=== PATIENT | male | born 1990 | race Two or more races ===

== ENCOUNTER 2018-10-25 09:37 | Inpatient (IN) | payer SELFPAY, OTHER | END 2018-10-27 16:59 | disposition home or self-care (01) | LOC: ER 09:37 → OVERFLOW 14:02 → CENTRAL 18:15 ==

== ENCOUNTER 2022-09-16 15:35 | Emergency (ER) | payer MEDICAID ==
[~2022-09-16] VITALS: Ht 165.1 cm; Wt 80.6 kg
[~2022-09-16 15:35] MED LIST: CIPR-173 PO; METR500T PO; ONDA-144 PO; PERCOT PO
[2022-09-16 16:57] LABS: Basophils # (auto) 0.1 10 ^3/uL (0-0.2); Basophils % (auto) 0.5 % (0.0-2.0); Eosinophils # (auto) 0 10 ^3/uL (0-0.8); Eosinophils % (auto) 0.2 % (0.0-7.0); Hematocrit 44.5 % (41.0-53.0); Hemoglobin 15.3 g/dL (13.5-17.5); Lymphocytes # (auto) 2.3 10 ^3/uL (0.4-5.4); Lymphocytes % (auto) 15.3 % (10.0-50.0); Mean Corpuscular Hemoglobin 28.1 pg (28.0-32.0); Mean Corpuscular Hgb Conc. 34.3 g/dL (32.0-36.0); Mean Corpuscular Volume 82.1 fL (80.0-100.0); Monocytes # (auto) 1.2 10 ^3/uL (0-1.3); Neutrophils # (auto) 11.5 10 ^3/uL (1.6-8.6); Nucleated Red Blood Cells % 0.1 %; Red Blood Cells 5.42 10^6/uL (4.5-5.90); Red Cell Distribution Width 13.8 % (11.8-14.3); White Blood Cell 15.1 10^3/uL (4.4-10.8)
[2022-09-16 17:17] LABS: Calcium 8.8 mg/dL (8.5-10.1); Potassium 3.5 mmol/L (3.5-5.1)
[2022-09-16 17:21] LABS: BUN/Creatinine Ratio 14.3; Bilirubin, Total 0.7 mg/dL (0.2-1.0); Total Protein 7.9 g/dL (6.4-8.2)
[2022-09-16] MEDS ORDERED: METR500T14 PO (18:59)
[2022-09-16] MEDS ORDERED: CIPR-173 PO (18:59)
[2022-09-16] MEDS ORDERED: HYDROcodone-ACET 5/325MG TAB PO ONE (19:00)
[2022-09-16] MEDS ORDERED: CIPROFLOXACIN HCL 500 MG TAB PO ONE (19:00)
[2022-09-16] MEDS ORDERED: metroNIDAZOLE 500 MG TAB PO ONE (19:00)
[2022-09-16 20:00] VITALS: BP 135/86
== END 2022-09-16 20:02 | disposition home or self-care (01) ==
LOC: ER 15:35
DX: K57.32 Diverticulitis of large intestine without perforation or abscess without bleeding (principal); Z79.2 Long term (current) use of antibiotics; Z79.899 Other long term (current) drug therapy
CPT/HCPCS: 36415; 74177; 80053; 85025; 99285; Q9967

== ENCOUNTER 2023-04-16 11:46 | Inpatient (IN) | payer MEDICAID ==
[~2023-04-16] VITALS: Ht 165.1 cm; Wt 77.7 kg
[~2023-04-16 11:46] MED LIST changes: +METR-344 PO
[2023-04-16] MEDS ORDERED: ACETAMINOPHEN 325 MG TAB PO ONE (12:00)
[2023-04-16 12:19] VITALS: PULSE 115; RESP 16; O2SAT 96
[2023-04-16 12:40] LABS: Alanine Aminotransferase 193 U/L (7-40); Albumin 5.1 g/dL (3.2-4.8); Alkaline Phosphatase 109 U/L (46-116); Anion Gap 8 (5-15); Aspartate Aminotransferase 146 U/L (13-40); BUN/Creatinine Ratio 10.7 (10.0-20.0); Blood Urea Nitrogen 9 mg/dL (9-23); Calcium 9.5 mg/dL (8.7-10.4); Carbon Dioxide 28 mmol/L (20-30); Chloride 102 mmol/L (98-107); Glucose 118 mg/dL (74-106); Potassium 3.6 mmol/L (3.5-5.1); Sodium 138 mmol/L (136-145)
[2023-04-16 12:45] LABS: Basophils # (auto) 0 10 ^3/uL (0-0.2); Basophils % (auto) 0.1 % (0.0-2.0); Eosinophils # (auto) 0 10 ^3/uL (0-0.8); Eosinophils % (auto) 0.2 % (0.0-7.0); Hematocrit 47.1 % (41.0-53.0); Hemoglobin 15.5 g/dL (13.5-17.5); Lymphocytes # (auto) 0.4 10 ^3/uL (0.4-5.4); Lymphocytes % (auto) 3.3 % (10.0-50.0); Mean Corpuscular Hemoglobin 27.7 pg (28.0-32.0); Mean Corpuscular Hgb Conc. 32.9 g/dL (32.0-36.0); Mean Corpuscular Volume 84.3 fL (80.0-100.0); Monocytes # (auto) 0.2 10 ^3/uL (0-1.3); Monocytes % (auto) 1.5 % (0.0-12.0); Neutrophils # (auto) 12.1 10 ^3/uL (1.6-8.6); Neutrophils % (auto) 94.9 % (37.0-80.0); Nucleated Red Blood Cells % 0.1 %; Red Blood Cells 5.58 10^6/uL (4.5-5.90); Red Cell Distribution Width 13.7 % (11.8-14.3); White Blood Cell 12.8 10^3/uL (4.4-10.8)
[2023-04-16] MEDS ORDERED: metroNIDAZOLE 500MG/100ML 100 ML IV ONE (13:15)
[2023-04-16] MEDS ORDERED: levoFLOXacin 500MG 100 ML IV ONE (13:15)
[2023-04-16] MEDS ORDERED: ACETAMINOPHEN 500 MG TAB PO ONE (13:15)
[2023-04-16] MEDS ORDERED: KETOROLAC TROMETH 30 MG/ML 1ML VIAL IV ONE (13:15)
[2023-04-16 13:21] LABS: Urine Bacteria NONE SEEN /hpf (None Seen); Urine Blood Negative /uL (Negative); Urine Clarity Clear (Clear); Urine Color Yellow (Yellow); Urine Mucus FEW (None Seen); Urine Protein, UAD Negative (Negative); Urine Specific Gravity 1.026 (1.001-1.035); Urine Urobilinogen Normal (Negative); Urine WBC 1 /hpf (0 - 3); Urine pH 5.5 (5.0-8.0)
[2023-04-16] MEDS ORDERED: SODIUM CHLORIDE 0.9% 1,000 ML IV ONE (13:30)
[2023-04-16 14:28] LABS: Lipase 28 U/L (12-53)
[2023-04-16 14:29] LABS: Blood Alcohol < 3.0 mg/dL (<10)
[2023-04-16] MEDS ORDERED: MORPHINE SULFATE INJ 2 MG/ml SYRG IV PRN (15:30)
[2023-04-16] MEDS ORDERED: DOCUSATE SOD 100 MG CAP PO PRN (15:30)
[2023-04-16] MEDS ORDERED: ONDANSETRON HCL 4 MG/2 ML VIAL IV PRN (15:30)
[2023-04-16] MEDS: SODIUM CHLORIDE 0.9% 1,000 ML IV SCH (16:14)
[2023-04-16 17:37] VITALS: BP 101/57; PULSE 91; RESP 20; TEMP 98.2; O2SAT 96
[2023-04-16] MEDS: PIPERACILLIN-TAZOB 3.375GM 100 ML IV SCH (18:05)
[2023-04-16 19:30] VITALS: PULSE 89; RESP 19; O2SAT 96
[2023-04-16] MEDS: ACETAMINOPHEN 325 MG TAB PO PRN (21:25)
[2023-04-16 22:00] VITALS: BP 130/71; PULSE 111; RESP 19; TEMP 102.4; O2SAT 99
[2023-04-16 22:13] VITALS: TEMP 100.9
[2023-04-17] MEDS: PIPERACILLIN-TAZOB 3.375GM 100 ML IV SCH ×2 (00:03→05:53)
[2023-04-17] MEDS: SODIUM CHLORIDE 0.9% 1,000 ML IV SCH ×2 (00:03→08:10)
[2023-04-17 05:00] VITALS: BP 132/83; PULSE 101; RESP 18; TEMP 99.5; O2SAT 92
[2023-04-17 06:18] LABS: Basophils # (auto) 0 10 ^3/uL (0-0.2); Basophils % (auto) 0.4 % (0.0-2.0); Eosinophils # (auto) 0 10 ^3/uL (0-0.8); Hemoglobin 14.1 g/dL (13.5-17.5); Lymphocytes # (auto) 0.5 10 ^3/uL (0.4-5.4); Lymphocytes % (auto) 4.4 % (10.0-50.0); Mean Corpuscular Hemoglobin 27.9 pg (28.0-32.0); Mean Corpuscular Hgb Conc. 33.7 g/dL (32.0-36.0); Mean Corpuscular Volume 82.7 fL (80.0-100.0); Monocytes # (auto) 0.6 10 ^3/uL (0-1.3); Monocytes % (auto) 5.6 % (0.0-12.0); Neutrophils # (auto) 9.2 10 ^3/uL (1.6-8.6); Neutrophils % (auto) 89.6 % (37.0-80.0); Red Blood Cells 5.07 10^6/uL (4.5-5.90); Red Cell Distribution Width 13.2 % (11.8-14.3); White Blood Cell 10.3 10^3/uL (4.4-10.8)
[2023-04-17 06:44] LABS: Alanine Aminotransferase 132 U/L (7-40); Albumin 4.3 g/dL (3.2-4.8); Alkaline Phosphatase 74 U/L (46-116); Anion Gap 9 (5-15); Aspartate Aminotransferase 78 U/L (13-40); BUN/Creatinine Ratio 8.2 (10.0-20.0); Blood Urea Nitrogen 6 mg/dL (9-23); Calcium 8.9 mg/dL (8.7-10.4); Carbon Dioxide 23 mmol/L (20-30); Chloride 106 mmol/L (98-107); Glucose 115 mg/dL (74-106); Potassium 3.3 mmol/L (3.5-5.1); Sodium 138 mmol/L (136-145)
[2023-04-17 06:45] LABS: Total Protein 6.6 g/dL (5.7-8.2)
[2023-04-17 08:00] VITALS: PULSE 80; RESP 18; O2SAT 96
[2023-04-17 08:54] VITALS: BP 117/68; PULSE 98; RESP 20; TEMP 99.5; O2SAT 92
[2023-04-17] MEDS: D5W/SOD CHL 0.45%/KCL 20MEQ 1,000 ML IV SCH ×3 (10:40→20:06)
[2023-04-17 13:00] VITALS: BP 125/80; PULSE 99; RESP 22; TEMP 99.7; O2SAT 100
[2023-04-17] MEDS: metroNIDAZOLE 500MG/100ML 100 ML IV SCH ×2 (13:00→21:05)
[2023-04-17] MEDS: ACETAMINOPHEN 325 MG TAB PO PRN (16:46)
[2023-04-17 17:00] VITALS: BP 127/74; PULSE 100; RESP 22; TEMP 100.7; O2SAT 100
[2023-04-17 22:00] VITALS: BP 113/73; PULSE 96; RESP 18; TEMP 99.1; O2SAT 97
[2023-04-17] MEDS: HYDROmorphone HCL 2 MG/ML VL/or syr IV PRN (22:57)
[2023-04-18 05:00] VITALS: BP 122/65; PULSE 96; RESP 17; TEMP 100.8; O2SAT 97
[2023-04-18 05:09] LABS: Basophils # (auto) 0 10 ^3/uL (0-0.2); Basophils % (auto) 0.3 % (0.0-2.0); Eosinophils # (auto) 0 10 ^3/uL (0-0.8); Eosinophils % (auto) 0.2 % (0.0-7.0); Hematocrit 42.4 % (41.0-53.0); Hemoglobin 14.2 g/dL (13.5-17.5); Lymphocytes % (auto) 12.1 % (10.0-50.0); Mean Corpuscular Hemoglobin 27.9 pg (28.0-32.0); Mean Corpuscular Hgb Conc. 33.5 g/dL (32.0-36.0); Mean Corpuscular Volume 83.1 fL (80.0-100.0); Monocytes # (auto) 0.8 10 ^3/uL (0-1.3); Monocytes % (auto) 9.2 % (0.0-12.0); Neutrophils # (auto) 6.7 10 ^3/uL (1.6-8.6); Neutrophils % (auto) 78.2 % (37.0-80.0); Red Blood Cells 5.11 10^6/uL (4.5-5.90); Red Cell Distribution Width 13.3 % (11.8-14.3); White Blood Cell 8.5 10^3/uL (4.4-10.8)
[2023-04-18 05:26] LABS: Anion Gap 6 (5-15); Carbon Dioxide 24 mmol/L (20-30); Chloride 104 mmol/L (98-107); Potassium 3.4 mmol/L (3.5-5.1); Sodium 134 mmol/L (136-145)
[2023-04-18 05:28] LABS: Calcium 8.9 mg/dL (8.7-10.4)
[2023-04-18] MEDS: ACETAMINOPHEN 325 MG TAB PO PRN (05:30)
[2023-04-18] MEDS: metroNIDAZOLE 500MG/100ML 100 ML IV SCH ×3 (05:31→21:35)
[2023-04-18 05:32] LABS: Glucose 126 mg/dL (74-106)
[2023-04-18 05:33] LABS: BUN/Creatinine Ratio 7.5 (10.0-20.0); Blood Urea Nitrogen < 5 mg/dL (9-23); Magnesium 1.7 mg/dL (1.6-2.6)
[2023-04-18] MEDS: HYDROmorphone HCL 2 MG/ML VL/or syr IV PRN ×2 (05:42→13:35)
[2023-04-18 08:00] VITALS: O2SAT 98
[2023-04-18] MEDS: cefTRIAXone 1GM/50ML D5W 50 ML IV SCH (08:49)
[2023-04-18 09:00] VITALS: BP 109/61; PULSE 66; RESP 16; TEMP 98.8; O2SAT 98
[2023-04-18 12:50] VITALS: BP 122/70; PULSE 87; RESP 20; TEMP 99.3; O2SAT 98
[2023-04-18 17:00] VITALS: BP 118/70; PULSE 69; RESP 18; TEMP 98.6; O2SAT 99
[2023-04-18] MEDS: D5W/SOD CHL 0.45%/KCL 20MEQ 1,000 ML IV SCH (18:30)
[2023-04-18 22:00] VITALS: BP 122/73; PULSE 88; RESP 17; TEMP 99.2; O2SAT 94
[2023-04-19] MEDS: D5W/SOD CHL 0.45%/KCL 20MEQ 1,000 ML IV SCH ×2 (02:01→10:30)
[2023-04-19 05:00] VITALS: BP 112/70; PULSE 69; RESP 16; TEMP 98.7; O2SAT 98
[2023-04-19] MEDS: metroNIDAZOLE 500MG/100ML 100 ML IV SCH ×2 (06:54→13:58)
[2023-04-19 08:46] VITALS: BP 117/67; PULSE 74; RESP 20; TEMP 98; O2SAT 97
[2023-04-19] MEDS: cefTRIAXone 1GM/50ML D5W 50 ML IV SCH (09:04)
[2023-04-19 12:41] VITALS: BP 138/81; PULSE 88; RESP 21; TEMP 98.1; O2SAT 97
[2023-04-19] MEDS ORDERED: METR-344 PO (13:07)
[2023-04-19] MEDS ORDERED: LEVO500T91 PO (13:07)
[2023-04-19] MEDS ORDERED: HYDR-4902 PO (13:07)
[2023-04-19 14:02] VITALS: BP 138/81; PULSE 88; RESP 20; TEMP 98.1; O2SAT 97
== END 2023-04-19 15:34 | disposition home or self-care (01) | DRG 720 ==
LOC: ER 11:46 → OVERFLOW 15:24 → WEST WING 17:39
PROVIDERS: ADMIT Nurse Practitioner Family; ATTEND Nurse Practitioner Acute Care
DX: A41.9 Sepsis, unspecified organism (principal); K76.0 Fatty (change of) liver, not elsewhere classified; E86.0 Dehydration; F12.10 Cannabis abuse, uncomplicated; K57.32 Diverticulitis of large intestine without perforation or abscess without bleeding
CPT/HCPCS: 36415; 74176; 76705; 80048; 80053; 80320; 81001; 83605; 83690; 83735; 85025; 96365; 96375; G0378; J0696; J1885; J1956; J2543; J3490

== ENCOUNTER 2023-05-13 11:41 | Inpatient (IN) | payer MEDICAID ==
[~2023-05-13] VITALS: Ht 165.1 cm; Wt 79.0 kg
[~2023-05-13 11:41] MED LIST changes: +HYDR-4902 PO; +LEVO500T91 PO
[2023-05-13] MEDS ORDERED: IOHEXOL 300 MG/ML 100ML BOTTLE IJ ONE (12:22)
[2023-05-13 13:24] LABS: Basophils # (auto) 0.1 10 ^3/uL (0-0.2); Basophils % (auto) 0.3 % (0.0-2.0); Eosinophils # (auto) 0 10 ^3/uL (0-0.8); Hemoglobin 16.4 g/dL (13.5-17.5); Lymphocytes # (auto) 1.9 10 ^3/uL (0.4-5.4); Lymphocytes % (auto) 11.2 % (10.0-50.0); Mean Corpuscular Hemoglobin 27.6 pg (28.0-32.0); Mean Corpuscular Hgb Conc. 33.5 g/dL (32.0-36.0); Mean Corpuscular Volume 82.4 fL (80.0-100.0); Monocytes # (auto) 1.3 10 ^3/uL (0-1.3); Monocytes % (auto) 7.3 % (0.0-12.0); Neutrophils # (auto) 14.1 10 ^3/uL (1.6-8.6); Neutrophils % (auto) 81.2 % (37.0-80.0); Red Blood Cells 5.95 10^6/uL (4.5-5.90); Red Cell Distribution Width 13.6 % (11.8-14.3); White Blood Cell 17.4 10^3/uL (4.4-10.8)
[2023-05-13 13:41] LABS: Alanine Aminotransferase 89 U/L (7-40); Albumin 5.4 g/dL (3.2-4.8); Alkaline Phosphatase 106 U/L (46-116); Anion Gap 11 (5-15); Aspartate Aminotransferase 55 U/L (13-40); Bilirubin, Total 1.2 mg/dL (0.2-1.0); Blood Urea Nitrogen 6 mg/dL (9-23); Calcium 10.2 mg/dL (8.7-10.4); Carbon Dioxide 24 mmol/L (20-30); Chloride 101 mmol/L (98-107); Glucose 105 mg/dL (74-106); Lipase 40 U/L (12-53); Potassium 3.6 mmol/L (3.5-5.1); Sodium 136 mmol/L (136-145); Total Protein 8.7 g/dL (5.7-8.2)
[2023-05-13 13:42] LABS: Urine Bacteria NONE SEEN /hpf (None Seen); Urine Blood Negative /uL (Negative); Urine Clarity Clear (Clear); Urine Color PINK (Yellow); Urine Mucus FEW (None Seen); Urine Protein, UAD 1+ (Negative); Urine Specific Gravity 1.032 (1.001-1.035); Urine WBC 1 /hpf (0 - 3)
[2023-05-13] MEDS ORDERED: metroNIDAZOLE 500MG/100ML 100 ML IV ONE (15:45)
[2023-05-13] MEDS ORDERED: DOCUSATE SOD 100 MG CAP PO PRN (17:00)
[2023-05-13] MEDS ORDERED: PIPERACILLIN-TAZOB 3.375GM 100 ML IV SCH (18:00)
[2023-05-13] MEDS: SODIUM CHLORIDE 0.9% 1,000 ML IV SCH (21:27)
[2023-05-14] MEDS: ONDANSETRON HCL 4 MG/2 ML VIAL IV PRN ×3 (00:26→14:10)
[2023-05-14] MEDS: MORPHINE SULFATE INJ 2 MG/ml SYRG IV PRN ×5 (00:27→20:10)
[2023-05-14] MEDS ORDERED: HYDROcodone-ACET 5/325MG TAB PO ONE (00:30)
[2023-05-14] MEDS: SODIUM CHLORIDE 0.9% 1,000 ML IV SCH ×3 (01:20→18:00)
[2023-05-14 03:40] VITALS: PULSE 85; RESP 18; O2SAT 97
[2023-05-14] MEDS: PIPERACILLIN-TAZOB 3.375GM 100 ML IV SCH ×4 (04:32→21:20)
[2023-05-14 05:46] LABS: Basophils # (auto) 0.1 10 ^3/uL (0-0.2); Basophils % (auto) 0.4 % (0.0-2.0); Eosinophils # (auto) 0.1 10 ^3/uL (0-0.8); Eosinophils % (auto) 0.5 % (0.0-7.0); Hemoglobin 14.8 g/dL (13.5-17.5); Lymphocytes # (auto) 1.9 10 ^3/uL (0.4-5.4); Lymphocytes % (auto) 13.8 % (10.0-50.0); Mean Corpuscular Hemoglobin 27.8 pg (28.0-32.0); Mean Corpuscular Hgb Conc. 33.6 g/dL (32.0-36.0); Mean Corpuscular Volume 82.8 fL (80.0-100.0); Monocytes # (auto) 1.4 10 ^3/uL (0-1.3); Monocytes % (auto) 10.1 % (0.0-12.0); Neutrophils # (auto) 10.4 10 ^3/uL (1.6-8.6); Neutrophils % (auto) 75.2 % (37.0-80.0); Red Blood Cells 5.31 10^6/uL (4.5-5.90); Red Cell Distribution Width 13.5 % (11.8-14.3); White Blood Cell 13.9 10^3/uL (4.4-10.8)
[2023-05-14 06:26] LABS: Alanine Aminotransferase 67 U/L (7-40); Albumin 4.6 g/dL (3.2-4.8); Alkaline Phosphatase 102 U/L (46-116); Anion Gap 10 (5-15); Aspartate Aminotransferase 45 U/L (13-40); BUN/Creatinine Ratio 15.6 (10.0-20.0); Blood Urea Nitrogen 10 mg/dL (9-23); Calcium 9.4 mg/dL (8.7-10.4); Carbon Dioxide 24 mmol/L (20-30); Chloride 102 mmol/L (98-107); Glucose 99 mg/dL (74-106); Potassium 3.7 mmol/L (3.5-5.1); Sodium 136 mmol/L (136-145)
[2023-05-14 06:27] LABS: Bilirubin, Total 1.4 mg/dL (0.2-1.0); Total Protein 7.1 g/dL (5.7-8.2)
[2023-05-14 07:30] VITALS: PULSE 88; RESP 20; O2SAT 94
[2023-05-14 17:00] VITALS: BP 118/77; PULSE 86; RESP 18; TEMP 97.9; O2SAT 96
[2023-05-14 22:00] VITALS: BP 116/72; PULSE 69; RESP 18; TEMP 98.1; O2SAT 96
[2023-05-15] MEDS: SODIUM CHLORIDE 0.9% 1,000 ML IV SCH ×4 (02:20→21:32)
[2023-05-15] MEDS: PIPERACILLIN-TAZOB 3.375GM 100 ML IV SCH ×4 (04:06→21:32)
[2023-05-15 05:00] VITALS: BP 118/73; PULSE 64; RESP 16; TEMP 98; O2SAT 97
[2023-05-15 08:00] VITALS: BP 118/74; PULSE 86; RESP 18; RESP 20; TEMP 98.5; O2SAT 96
[2023-05-15] MEDS: MORPHINE SULFATE INJ 2 MG/ml SYRG IV PRN ×2 (08:52→19:27)
[2023-05-15 13:00] VITALS: BP 121/89; PULSE 79; RESP 16; TEMP 98.6; O2SAT 97
[2023-05-15 17:00] VITALS: BP_SYST 114; BP_SYST 129; BP_DIAS 48; BP_DIAS 74; PULSE 54; PULSE 80; RESP 16; RESP 18; TEMP 98.3; TEMP 98.6; O2SAT 95
[2023-05-15 19:32] VITALS: PULSE 83; RESP 20
[2023-05-15 22:00] VITALS: BP 135/83; PULSE 78; RESP 17; TEMP 98.6; O2SAT 95
[2023-05-16] MEDS: PIPERACILLIN-TAZOB 3.375GM 100 ML IV SCH ×2 (04:51→09:08)
[2023-05-16 05:00] VITALS: BP 123/87; PULSE 81; RESP 17; TEMP 98; O2SAT 96
[2023-05-16 06:08] LABS: Basophils # (auto) 0 10 ^3/uL (0-0.2); Basophils % (auto) 0.4 % (0.0-2.0); Eosinophils # (auto) 0.1 10 ^3/uL (0-0.8); Eosinophils % (auto) 0.8 % (0.0-7.0); Lymphocytes # (auto) 1.8 10 ^3/uL (0.4-5.4); Lymphocytes % (auto) 19.7 % (10.0-50.0); Mean Corpuscular Hemoglobin 27.9 pg (28.0-32.0); Mean Corpuscular Hgb Conc. 33.3 g/dL (32.0-36.0); Mean Corpuscular Volume 83.9 fL (80.0-100.0); Monocytes # (auto) 0.7 10 ^3/uL (0-1.3); Monocytes % (auto) 7.9 % (0.0-12.0); Neutrophils # (auto) 6.6 10 ^3/uL (1.6-8.6); Neutrophils % (auto) 71.2 % (37.0-80.0); Nucleated Red Blood Cells % 0.1 %; Red Blood Cells 5.01 10^6/uL (4.5-5.90); Red Cell Distribution Width 13.8 % (11.8-14.3); White Blood Cell 9.3 10^3/uL (4.4-10.8)
[2023-05-16 09:20] VITALS: BP 126/89; PULSE 68
[2023-05-16] MEDS: SODIUM CHLORIDE 0.9% 1,000 ML IV SCH (11:40)
[2023-05-16] MEDS ORDERED: LEVO500T91 PO (12:48)
[2023-05-16] MEDS ORDERED: MET500T PO (12:48)
[2023-05-16] MEDS ORDERED: HYDR-4902 PO (12:48)
[2023-05-16 13:00] VITALS: BP 130/82; PULSE 75; RESP 18; TEMP 98.6; O2SAT 98
[2023-05-16 13:46] VITALS: BP 130/82; PULSE 75; RESP 18; TEMP 98.6; O2SAT 98
== END 2023-05-16 14:20 | disposition home or self-care (01) | DRG 720 ==
LOC: ER 11:41 → OVERFLOW 16:52 → WEST WING 05-14 16:50
PROVIDERS: ADMIT Nurse Practitioner Family; ATTEND Family Medicine
DX: A41.9 Sepsis, unspecified organism (principal); K76.0 Fatty (change of) liver, not elsewhere classified; E86.0 Dehydration; K57.32 Diverticulitis of large intestine without perforation or abscess without bleeding; F12.10 Cannabis abuse, uncomplicated
CPT/HCPCS: 36415; 74177; 80053; 81001; 83690; 85025; 87081; G0378; J2405; J2543; J3490

== ENCOUNTER 2023-09-07 17:44 | Emergency (ER) | payer MEDICAID ==
[~2023-09-07] VITALS: Ht 165.1 cm; Wt 77.0 kg
[~2023-09-07 17:44] MED LIST changes: +MET500T PO
[2023-09-07] MEDS ORDERED: LEVO500T91 PO (18:46)
[2023-09-07] MEDS ORDERED: METR375C PO (18:46)
[2023-09-07] MEDS ORDERED: HYDR-4902 PO (18:46)
[2023-09-07 18:59] LABS: Eosinophils # (auto) 0 10 ^3/uL (0-0.8); Eosinophils % (auto) 0.4 % (0.0-7.0); Hemoglobin 15.1 g/dL (13.5-17.5); Lymphocytes # (auto) 1.8 10 ^3/uL (0.4-5.4); Monocytes # (auto) 0.8 10 ^3/uL (0-1.3)
[2023-09-07 19:01] LABS: Basophils # (auto) 0 10 ^3/uL (0-0.2); Basophils % (auto) 0.3 % (0.0-2.0); Hematocrit 46.5 % (41.0-53.0); Lymphocytes % (auto) 16.7 % (10.0-50.0); Mean Corpuscular Hemoglobin 26.9 pg (28.0-32.0); Mean Corpuscular Hgb Conc. 32.4 g/dL (32.0-36.0); Mean Corpuscular Volume 83.1 fL (80.0-100.0); Monocytes % (auto) 7.1 % (0.0-12.0); Neutrophils # (auto) 8.4 10 ^3/uL (1.6-8.6); Neutrophils % (auto) 75.5 % (37.0-80.0); Red Cell Distribution Width 13.8 % (11.8-14.3); White Blood Cell 11.1 10^3/uL (4.4-10.8)
[2023-09-07 19:18] LABS: Alanine Aminotransferase 148 U/L (7-40); Albumin 4.8 g/dL (3.2-4.8); Alkaline Phosphatase 117 U/L (46-116); Anion Gap 7 (5-15); Aspartate Aminotransferase 93 U/L (13-40); Bilirubin, Total 0.3 mg/dL (0.2-1.0); Blood Urea Nitrogen 6 mg/dL (9-23); Calcium 9.4 mg/dL (8.7-10.4); Carbon Dioxide 29 mmol/L (20-30); Chloride 104 mmol/L (98-107); Glucose 96 mg/dL (74-106); Potassium 3.4 mmol/L (3.5-5.1); Sodium 140 mmol/L (136-145); Total Protein 7.7 g/dL (5.7-8.2)
[2023-09-07] MEDS: HYDROcodone-ACET 5/325MG TAB PO ONE (19:25)
[2023-09-07] MEDS: metroNIDAZOLE 500 MG TAB PO ONE (19:25)
[2023-09-07] MEDS: levoFLOXacin 500 MG TAB PO ONE (19:25)
[2023-09-07 19:29] VITALS: BP 127/86; PULSE 76; RESP 18; TEMP 98.2; O2SAT 98
== END 2023-09-07 19:31 | disposition home or self-care (01) ==
LOC: ER 17:44
DX: K57.92 Diverticulitis of intestine, part unspecified, without perforation or abscess without bleeding (principal); F12.10 Cannabis abuse, uncomplicated
CPT/HCPCS: 36415; 70450; 80053; 85025; 93005

== ENCOUNTER 2024-09-20 13:20 | Inpatient (IN) | payer MEDICAID ==
[~2024-09-20] VITALS: Ht 165.1 cm; Wt 79.5 kg
[~2024-09-20 13:20] MED LIST changes: +METR375C PO
--- NOTE | 2024-09-20 14:45 | ED.PDOC ---
GI ASSESSMENT HPI Comments 33y F who presents to the ED for chief complaint of abdominal pain. Pt states he has been having diffuse abdominal pain for the past 4-5 days. Pt states the pain is achy in nature, rating the pain 5/10, constant, non-radiating, with no associated exacerbating or relieving factors. Pt has no associated symptoms but denies nausea, vomiting, diarrhea, fever, cough, or chills. Pt states he had similar symptoms 1 1/2 years prior and states last time, he was dx with diverticulitis. Pt otherwise denies any other symptoms at this time. Chief Complaint: Abdominal Pain Time Seen by MD: 14:49 Primary Care Provider: NONE Reviewed Notes: Medications, Allergies Allergies: Coded Allergies: NO KNOWN ALLERGIES (Unverified , 10/25/18) Home Meds Active Scripts Hydrocodone-Acetaminophen (Hydrocodone Bitartrate/AC 5-325 mg) 1 Tab Tab, 1 TAB PO Q4HPRN PRN, #20 TAB Prov:PRETTY BONILLA DO 09/07/23 Metronidazole (Flagyl) 375 Mg Cap, 500 MG PO TID for 7 Days, #21 CAP Prov:PRETTY BONILLA DO 09/07/23 Levofloxacin Hemihydrate (LEVAQUIN 500 MG) 500 Mg Tab, 1 TAB PO DAILY, #7 TAB Prov:PRETTY BONILLA DO 09/07/23 Hydrocodone-Acetaminophen (Hydrocodone Bitartrate/AC 5-325 mg) 1 Tab Tab, 1 TAB PO QID PRN, #30 TAB Prov:GINO SULLIVAN MD 05/16/23 Metronidazole (Metronidazole) 500 Mg Tab, 500 MG PO TID, #42 TAB Prov:GINO SULLIVAN MD 05/16/23 Levofloxacin Hemihydrate (LEVAQUIN 500 MG) 500 Mg Tab, 1 TAB PO DAILY, #14 TAB Prov:GNIO SULLIVAN MD 05/16/23 Hydrocodone-Acetaminophen (Hydrocodone Bitartrate/AC 5-325 mg) 1 Tab Tab, 1 TAB PO Q8HP PRN for 3 Days, #9 TAB Prov:SHORTY TANG QUARTZ MINER 04/19/23 Metronidazole (Flagyl) 500 Mg Tab, 1 TAB PO TID for 7 Days, #21 TAB Prov:SHORTY TANG QUARTZ MINER 04/19/23 Levofloxacin Hemihydrate (LEVAQUIN 500 MG) 500 Mg Tab, 1 TAB PO DAILY for 7 Days, #7 TAB Prov:SHORTY TANG NP 04/19/23 Ciprofloxacin Hcl (Cipro) 500 Mg Tab, 500 MG PO BID for 5 Days, #10 TAB Prov:SWATHI BLACKWOOD MD 09/16/22 Metronidazole (Flagyl) 500 Mg Tab, 500 MG PO Q8HR for 5 Days, #15 TAB Prov:SWATHI BLACKWOOD MD 09/16/22 Ondansetron (Zofran) 4 Mg Tab, 4 MG PO BID for 7 Days, #14 MG Prov:CHAYA CALDERÓN MD 05/04/22 Oxycodone W/ Acetaminophen (Percocet 5/325MG) 1 Tab Tb, 1 TAB PO BID for 7 Days, #14 TAB Prov:CHAYA CALDERÓN MD 05/04/22 Ciprofloxacin Hcl (Cipro) 500 Mg Tab, 500 MG PO BID for 7 Days, #14 TAB Prov:CHAYA CALDERÓN MD 05/04/22 Metronidazole (Flagyl) 500 Mg Tab, 500 MG PO BID for 7 Days, #14 TAB Prov:CHAYA CALDERÓN MD 05/04/22 Information Source: Patient Mode of Arrival: Ambulatory Brought in by: self Timing: Days Duration: Since onset Prehospital treatment: None Quality: Aching Vomitus: None Stool: Normal Severity: Moderate Recent: None Recent Hx of: None Pain Location: Diffuse Modifying Factors: Nothing Associated sign and symptoms: Abdominal Pain Past Medical History Past Medical History (Other): diverticulitis Surgical History: Denies all surgeries Family History Family History: Reviewed,noncontributory to illness Social History Smoker: Non-Smoker Alcohol: Occasionally Drugs: Marijuana Lives In: Home Constitutional: denies: chills, diaphoresis, fatigue, fever, malaise, sweats, weakness, others EENTM: denies: blurred vision, double vision, ear bleeding, ear discharge, ear drainage, ear pain, ear ringing, eye pain, eye redness, hearing loss, mouth pain, mouth swelling, nasal discharge, nose bleeding, nose congestion, nose pain, photophobia, tearing, throat pain, throat swelling, voice changes, others Respiratory: denies: cough, hemoptysis, orthopnea, SOB at rest, shortness of breath, SOB with excertion, stridor, wheezing, others Cardiovascular: denies: chest pain, dizzy spells, diaphoresis, Dyspnea on exertion, edema, irregular heart beat, left arm pain, lightheadedness, palpitations, PND, syncope, others Gastrointestinal: reports: abdominal pain; denies: abdomen distended, blood streaked bowels, constipated, diarrhea, dysphagia, difficulty swallowing, hematemesis, melena, nausea, poor appetite, poor fluid intake, rectal bleeding, rectal pain, vomiting, others Genitourinary: denies: burning, dysuria, flank pain, frequency, hematuria, incontinence, penile discharge, penile sore, pain, testicle pain, testicle swelling, urgency, others Neurological: denies: dizziness, fainting, headache, left sided numbness, left sided weakness, numbness, paresthesia, pre-existing deficit, right sided numbness, right sided weakness, seizure, speech problems, tingling, tremors, weakness, others Musculoskeletal: denies: back pain, gout, joint pain, joint swelling, muscle pain, muscle stiffness, neck pain, others Integumetry: denies: bruises, change in color, change in hair/nails, dryness, laceration, lesions, lumps, rash, wounds, others Allergic/Immunocompromised: denies: Difficulty Healing, Frequent Infections, Hives, Itching, others Hematologic/Lymphatic: denies: anemia, blood clots, easy bleeding, easy bruising, swollen glands, others Endocrine: denies: excessive hunger, excessive sweating, excessive thirst, excessive urination, flushing, intolerance to cold, intolerance to heat, unexplained weight gain, unexplained weight loss, others Psychiatric: denies: anxiety, bipolar disorder, depression, hopeless, panic disorder, schizophrenia, sleepless, suicidal, others All Other Systems: Reviewed and Negative Physical Exam General Appearance: Moderate Distress HEENT: Normal ENT Inspection, Pharynx Normal, TMs Normal Neck: Full Range of Motion, Non-Tender, Normal, Normal Inspection Respiratory: Chest Non-Tender, Lungs Clear, No Accessory Muscle Use, No Respiratory Distress, Normal Breath Sounds Cardiovascular: No Edema, No JVD, No Murmur, No Gallop, Normal Peripheral Pulses, Regular Rate/Rhythm Breast Exam: Deferred Gastrointestinal: LLQ, No Organomegaly, No Pulsatile Mass, Normal Bowel Sounds, Soft, Suprapubic, Tenderness Genitalia: Deferred Pelvic: Deferred Rectal: Deferred Extremities: No calf tenderness, Normal capillary refill, Normal inspection, Normal range of motion, Non-tender, No pedal edema Musculoskeletal : Apperance: Normal Neurologic: Alert, pediatric registered nurse II-XII nml as Tested, No Motor Deficits, Normal Affect, Normal Mood, No Sensory Deficits Cerebellar Function: Normal Reflexes: Normal Skin: Dry, Normal Color, Warm Lymphatic: No Adenopathy Was a procedure done? Was a procedure done?: No GI differential Dx Differential Diagnosis: Diverticular disease, Gastritis/PUD, Gastroenteritis, Pancreatitis, Dehydration, Electrolyte Imbalance, Bacterial, Viral, Stress Ulcer, Kidney Stone X-Ray, Labs, Meds, VS Vital Signs Date Time Temp Pulse Resp B/P (MAP) Pulse Ox O2 Delivery O2 Flow Rate FiO2 09/20/24 14:00 98.7 98 14 127/84 (98) 100 Lab Test 09/20/24 14:30 Range/Units White Blood Count 12.7 H 4.4-10.8 10^3/uL Red Blood Count 5.53 4.5-5.90 10^6/uL Hemoglobin 14.9 13.5-17.5 g/dL Hematocrit 45.6 41.0-53.0 % Mean Corpuscular Volume 82.4 80.0-100.0 fL Mean Corpuscular Hemoglobin 27.0 L 28.0-32.0 pg Mean Corpuscular Hemoglobin Concent 32.8 32.0-36.0 g/dL Red Cell Distribution Width 12.8 11.8-14.3 % Platelet Count 306 140-450 10^3/uL Mean Platelet Volume 8.5 6.9-10.8 fL Neutrophils (%) (Auto) 76.9 37.0-80.0 % Lymphocytes (%) (Auto) 14.9 10.0-50.0 % Monocytes (%) (Auto) 7.4 0.0-12.0 % Eosinophils (%) (Auto) 0.4 0.0-7.0 % Basophils (%) (Auto) 0.4 0.0-2.0 % Neutrophils # (Auto) 9.8 H 1.6-8.6 10 ^3/uL Lymphocytes # (Auto) 1.9 0.4-5.4 10 ^3/uL Monocytes # (Auto) 0.9 0-1.3 10 ^3/uL Eosinophils # (Auto) 0.1 0-0.8 10 ^3/uL Basophils # (Auto) 0.1 0-0.2 10 ^3/uL Nucleated Red Blood Cells 0.1 % Sodium Level 139 136-145 mmol/L Potassium Level 3.8 3.5-5.1 mmol/L Chloride Level 102 98-107 mmol/L Carbon Dioxide Level 29 20-31 mmol/L Anion Gap 8 5-15 Blood Urea Nitrogen 9 9-23 mg/dL Creatinine 0.71 0.700-1.30 mg/dL Glomerular Filtration Rate Calc 125 >90 mL/min BUN/Creatinine Ratio 12.7 10.0-20.0 Serum Glucose 93 74-106 mg/dL Calcium Level 10.3 8.7-10.4 mg/dL Total Bilirubin 0.6 0.2-1.0 mg/dL Aspartate Amino Transferase (AST) 23 13-40 U/L Alanine Aminotransferase (ALT) 33 7-40 U/L Alkaline Phosphatase 102 46-116 U/L Total Protein 7.6 5.7-8.2 g/dL Albumin 5.2 H 3.2-4.8 g/dL Lipase 24 12-53 U/L IV Hep-Lock was established The CBC shows an elevated white blood cell count of 12.7 The rest of the CBC is within normal limits The chemistry panel is within normal limits At this time, the patient has been started on Flagyl 500 mg IV piggyback The patient was also given morphine 4 mg IV push for the pain and Zofran 4 mg IV push for the nausea The patient understands and agrees with the management and is being admitted at this time. A GI consult will be obtained. Images Reviewed?: Images reviewed and evaluated by me Time of 1ST Reevaluation: 15:20 Reevaluation 1ST: Unchanged Patient Education/Counseling: Diagnosis, Treatment, Prognosis Family Education/Counseling: No Family Present Departure 1 Departure Time of Disposition: 16:38 Impression: Primary Impression: Acute diverticulitis Additional Impression: Intractable abdominal pain Disposition: ADMITTED INPATIENT Admit to: Med Surg Condition: Fair Critical Care Note Critical Care Time?: No Stability Stability form required: Yes Unstable for transfer: ED Physician Assesment (Clinical assesment) Heart Score Heart Score: Heart Score Response (Comments) Value History N/A 0 EKG N/A 0 Age N/A 0 Risk Factors N/A 0 Troponin N/A 0 Total 0 I personally scribed for GEO SCOTT MD ([email or web address]) on 09/20/24 at 14:45. Electronically submitted by Saritha Phillip ([email or web address]). I personally scribed for GEO SCOTT MD ([email or web address]) on 09/20/24 at 14:51. Electronically submitted by Saritha Phillip ([email or web address]). GEO SCOTT MD Sep 20, 2024 14:45
[2024-09-20 14:59] LABS: Basophils # (auto) 0.1 10 ^3/uL (0-0.2); Basophils % (auto) 0.4 % (0.0-2.0); Eosinophils # (auto) 0.1 10 ^3/uL (0-0.8); Eosinophils % (auto) 0.4 % (0.0-7.0); Hematocrit 45.6 % (41.0-53.0); Hemoglobin 14.9 g/dL (13.5-17.5); Lymphocytes # (auto) 1.9 10 ^3/uL (0.4-5.4); Lymphocytes % (auto) 14.9 % (10.0-50.0); Mean Corpuscular Hgb Conc. 32.8 g/dL (32.0-36.0); Mean Corpuscular Volume 82.4 fL (80.0-100.0); Monocytes # (auto) 0.9 10 ^3/uL (0-1.3); Monocytes % (auto) 7.4 % (0.0-12.0); Neutrophils # (auto) 9.8 10 ^3/uL (1.6-8.6); Neutrophils % (auto) 76.9 % (37.0-80.0); Nucleated Red Blood Cells % 0.1 %; Platelet Count (auto) 306 10^3/uL (140-450); Red Blood Cells 5.53 10^6/uL (4.5-5.90); Red Cell Distribution Width 12.8 % (11.8-14.3); White Blood Cell 12.7 10^3/uL (4.4-10.8)
--- NOTE | 2024-09-20 15:01 | DVH ---
CT abdomen and pelvis without contrast INDICATION: pain TECHNIQUE: Serial axial images were performed through the abdomen and pelvis and then reformatted in the sagittal and coronal plane. All CT scans at this medical facility are performed using dose modula tion techniques as appropriate to a performed exam including the following: Automated exposure contro l was utilized; adjustment of the MA and/or KvP according to patient size; and use of iterative recon struction technique. FINDINGS: Lung bases clear. Liver and spleen are normal in size without focal mass. No renal masses, stones or hydronephrosis. No masses or enlargement of the adrenal glands or pancreas. No biliary dilatation. No gallstones. There is marked thickening of the flores of the sigmoid colon with edema in the surrounding mesentery. No evidence of obstruction or focal abscess. The appendix is normal in appearance. No free fluid. Within the pelvis, bladder is smooth walled without stones. No abnormal masses or fluid collections. IMPRESSION: 1. Sigmoid diverticulitis. 2. No evidence of obstruction or drainable abscess at this time. Computed Tomographic Radiation Dosimetry Report: Total CTDI vol = 7.57mGy Total DLP = 399.29mGy-cm Lo w dose protocols were performed.
[2024-09-20 15:20] LABS: Alanine Aminotransferase 33 U/L (7-40); Alkaline Phosphatase 102 U/L (46-116); Anion Gap 8 (5-15); Aspartate Aminotransferase 23 U/L (13-40); BUN/Creatinine Ratio 12.7 (10.0-20.0); Blood Urea Nitrogen 9 mg/dL (9-23); Calcium 10.3 mg/dL (8.7-10.4); Carbon Dioxide 29 mmol/L (20-31); Chloride 102 mmol/L (98-107); Glucose 93 mg/dL (74-106); Lipase 24 U/L (12-53); Potassium 3.8 mmol/L (3.5-5.1); Sodium 139 mmol/L (136-145)
[2024-09-20 15:21] LABS: Bilirubin, Total 0.6 mg/dL (0.2-1.0); Total Protein 7.6 g/dL (5.7-8.2)
[2024-09-20 15:27] LABS: Albumin 5.2 g/dL (3.2-4.8)
[2024-09-20] MEDS: metroNIDAZOLE 500MG/100ML 100 ML IV ONE (16:56)
[2024-09-20] MEDS: MORPHINE SULFATE 4 MG/ML SYR/VIAL IV ONE (16:57)
[2024-09-20] MEDS: ONDANSETRON HCL 4 MG/2 ML VIAL IV ONE (16:57)
[2024-09-20 17:04] VITALS: PULSE 89; RESP 17; O2SAT 97
[2024-09-20 20:25] LABS: Urine Bacteria FEW /hpf (None Seen); Urine Blood Negative /uL (Negative); Urine Clarity Clear (Clear); Urine Color Yellow (Yellow); Urine Mucus FEW (None Seen); Urine Protein, UAD Negative (Negative); Urine Specific Gravity 1.025 (1.001-1.035); Urine Squamous Epithelial Cell None Seen /hpf (<5); Urine Urobilinogen Normal (Negative); Urine WBC 1 /HPF (0-3)
[2024-09-20] MEDS ORDERED: ACETAMINOPHEN 325 MG TAB PO PRN (22:00)
[2024-09-20] MEDS ORDERED: cefTRIAXone 1GM/50ML D5W 50 ML IV SCH (22:00)
[2024-09-20] MEDS: SODIUM CHLORIDE 0.9% 1,000 ML IV SCH (22:00)
[2024-09-20 22:40] LABS: Basophils # (auto) 0.1 10 ^3/uL (0-0.2); Basophils % (auto) 0.8 % (0.0-2.0); Hemoglobin 14.6 g/dL (13.5-17.5); Mean Corpuscular Hemoglobin 26.9 pg (28.0-32.0); Mean Corpuscular Hgb Conc. 32.5 g/dL (32.0-36.0)
[2024-09-20 22:42] LABS: Eosinophils # (auto) 0 10 ^3/uL (0-0.8); Eosinophils % (auto) 0.3 % (0.0-7.0); Hematocrit 44.8 % (41.0-53.0); Lymphocytes # (auto) 2.8 10 ^3/uL (0.4-5.4); Lymphocytes % (auto) 23.9 % (10.0-50.0); Mean Corpuscular Volume 82.6 fL (80.0-100.0); Monocytes % (auto) 8.4 % (0.0-12.0); Neutrophils # (auto) 7.9 10 ^3/uL (1.6-8.6); Neutrophils % (auto) 66.6 % (37.0-80.0); Platelet Count (auto) 331 10^3/uL (140-450); Red Blood Cells 5.43 10^6/uL (4.5-5.90); Red Cell Distribution Width 12.9 % (11.8-14.3); White Blood Cell 11.8 10^3/uL (4.4-10.8)
[2024-09-20 22:56] LABS: INR 1.09 (0.9-1.15); Partial Thromboplastin Time 30.5 SEC (24.5-34.5); Prothrombin Time 11.5 sec (9.3-11.8)
[2024-09-20 23:02] LABS: Alanine Aminotransferase 30 U/L (7-40); Alkaline Phosphatase 102 U/L (46-116); Anion Gap 8 (5-15); Aspartate Aminotransferase 24 U/L (13-40); BUN/Creatinine Ratio 12.9 (10.0-20.0); Blood Alcohol 4.4 mg/dL (<10); Blood Urea Nitrogen 11 mg/dL (9-23); Calcium 10.4 mg/dL (8.7-10.4); Carbon Dioxide 31 mmol/L (20-31); Chloride 102 mmol/L (98-107); Glucose 96 mg/dL (74-106); Magnesium 2.2 mg/dL (1.6-2.6); Potassium 3.8 mmol/L (3.5-5.1); Sodium 141 mmol/L (136-145)
[2024-09-20 23:03] LABS: Bilirubin, Total 0.6 mg/dL (0.2-1.0); Total Protein 8.1 g/dL (5.7-8.2)
[2024-09-20 23:17] LABS: Albumin 5.2 g/dL (3.2-4.8)
--- NOTE | 2024-09-20 23:24 | DVHHPRES ---
History of Present Illness Resident Creating Document: JUSTO STEWART RESIDENT History of Present Illness Dusty Staton is a 33-year-old male with a PMH of diverticulitis presented to the ED with the chief complaints of diffuse lower abdominal pain more towards left for more the 5 days prior to admission. Patient reported he has been having pain constantly rating 5 to 7/10, nonradiating mostly in left lower quadrant with no aggravating or relieving factors. But since yesterday the pain has been worsening which prompted him to visit ED. on my assessment patient denies fever, nausea, vomiting, diarrhea, cough, chest pain and other acute associated symptoms. Patient reported he has been diagnosed with diverticulitis 4 years back she has then he has been having multiple episodes of diverticulitis, recently visited ED on September 07 with acute diverticulitis. Pt states he had similar symptoms 1 1/2 years prior and states last time, he was dx with diverticulitis. At that visit surgeon advised him to undergo elective colectomy. PMH: Diverticulitis PSH: Denies Family history: Not significant Social history: Lives with family. Smokes marijuana everyday, occasional alcohol but denies other drug abuse Home medications: None allergies: No known allergies Review of Systems Constitutional: No: Fever, Chills, Sweats, Weakness, Malaise, Other Eyes: No: Pain, Vision change, Conjunctivae inflammation, Eyelid inflammation, Other, Redness ENT: No: Ear pain, Ear discharge, Nose pain, Nose discharge, Nose congestion, Mouth pain, Mouth swelling, Throat pain, Throat swelling, Other Respiratory: No: Cough, Dry, Shortness of breath, SOB with excertion, Wheezing, Hemoptysis, Pleuritic Pain, Sputum, Wheezing, Other Cardiovascular: No: Chest Pain, Palpitations, Orthopnea, Paroxysmal Noc. Dyspnea, Edema, Lt Headedness, Other Gastrointestinal: Abdominal Pain Genitourinary: No Dysuria, No Frequency, No Incontinence, No Hematuria, No Retention, No Other Musculoskeletal: No: other, neck pain, shoulder pain, arm pain, back pain, hand pain, leg pain, foot pain Skin: No: Rash, Lesions, Jaundice, Bruising, Other Neurological: No: Weakness, Numbness, Incoordination, Change in speech, Confusion, Seizures, Other Allergies: Coded Allergies: NO KNOWN ALLERGIES (Unverified , 10/25/18) Medications Current Medications Medications Dose Ordered Sig/Yared Route Start Time Stop Time Status Last Admin Dose Admin Sodium Chloride 1,000 ml @ 120 mls/hr Q8H20M IV 09/20/24 22:00 Ondansetron HCl 4 mg Q4HP PRN IV 09/20/24 22:00 Acetaminophen 650 mg Q6HP PRN PO 09/20/24 22:00 Morphine Sulfate 2 mg Q4HPRN PRN IV 09/20/24 22:00 Ceftriaxone Sodium 50 ml @ 100 mls/hr DAILY IV 09/20/24 22:00 Metronidazole 100 ml @ 100 mls/hr DAILY@2200 IV 09/21/24 22:00 Pantoprazole Sodium 40 mg DAILY IV 09/20/24 22:00 Exam Vital Signs Vital Signs Date Time Temp Pulse Resp B/P (MAP) Pulse Ox O2 Delivery O2 Flow Rate FiO2 09/20/24 18:00 78 16 121/86 09/20/24 18:00 100 09/20/24 17:04 98.4 98.4 09/20/24 17:04 Room Air* 0 21 Exam Pt is lying on bed General Appearance: Alert, Oriented X3, Cooperative, Not in acute distress HEENT: Atraumatic, Mucous membranes moist/pink Respiratory: Clear to auscultation, Normal air movement, No added sounds Cardiovascular: Regular rate, Normal S1, Normal S2, No murmurs Abdominal: Lower abdominal mostly LLQ tenderness. No distention Extremities: No edema, Normal pulses, No tenderness/swelling Skin: No Significant rash, except past surgical scars Neuro: Normal speech, sensorimotor deficits none Psych/Mental Status: Mental status NL, Mood NL Nurse was there as sharperone during examination Labs/Xrays Labs Test 09/20/24 22:17 09/20/24 19:42 09/20/24 14:30 Range/Units White Blood Count 11.8 H 4.4-10.8 10^3/uL Red Blood Count 5.43 4.5-5.90 10^6/uL Hemoglobin 14.6 13.5-17.5 g/dL Hematocrit 44.8 41.0-53.0 % Mean Corpuscular Volume 82.6 80.0-100.0 fL Mean Corpuscular Hemoglobin 26.9 L 28.0-32.0 pg Mean Corpuscular Hemoglobin Concent 32.5 32.0-36.0 g/dL Red Cell Distribution Width 12.9 11.8-14.3 % Platelet Count 331 140-450 10^3/uL Mean Platelet Volume 8.6 6.9-10.8 fL Neutrophils (%) (Auto) 66.6 37.0-80.0 % Lymphocytes (%) (Auto) 23.9 10.0-50.0 % Monocytes (%) (Auto) 8.4 0.0-12.0 % Eosinophils (%) (Auto) 0.3 0.0-7.0 % Basophils (%) (Auto) 0.8 0.0-2.0 % Neutrophils # (Auto) 7.9 1.6-8.6 10 ^3/uL Lymphocytes # (Auto) 2.8 0.4-5.4 10 ^3/uL Monocytes # (Auto) 1.0 0-1.3 10 ^3/uL Eosinophils # (Auto) 0 0-0.8 10 ^3/uL Basophils # (Auto) 0.1 0-0.2 10 ^3/uL Nucleated Red Blood Cells 0.0 % Prothrombin Time 11.5 9.3-11.8 sec Prothrombin Time INR 1.09 0.9-1.15 Activated Partial Thromboplast Time 30.5 24.5-34.5 SEC Sodium Level 141 136-145 mmol/L Potassium Level 3.8 3.5-5.1 mmol/L Chloride Level 102 98-107 mmol/L Carbon Dioxide Level 31 20-31 mmol/L Anion Gap 8 5-15 Blood Urea Nitrogen 11 9-23 mg/dL Creatinine 0.85 0.700-1.30 mg/dL Glomerular Filtration Rate Calc 118 >90 mL/min BUN/Creatinine Ratio 12.9 10.0-20.0 Serum Glucose 96 74-106 mg/dL Lactic Acid Level 1.1 0.4-2.0 mmol/L Calcium Level 10.4 8.7-10.4 mg/dL Magnesium Level 2.2 1.6-2.6 mg/dL Total Bilirubin 0.6 0.2-1.0 mg/dL Aspartate Amino Transferase (AST) 24 13-40 U/L Alanine Aminotransferase (ALT) 30 7-40 U/L Alkaline Phosphatase 102 46-116 U/L Total Protein 8.1 5.7-8.2 g/dL Albumin 5.2 H 3.2-4.8 g/dL Plasma/Serum Blood Alcohol 4.4 <10 mg/dL Urine Color Yellow Yellow Urine Clarity Clear Clear Urine pH 7.0 5.0-9.0 Urine Specific [place] 1.025 1.001-1.035 Urine Protein Negative Negative Urine Ketones Negative Negative Urine Blood Negative Negative /uL Urine Nitrite Negative Negative Urine Bilirubin Negative Negative Urine Urobilinogen Normal Negative mg/dL Urine Leukocyte Esterase Negative Negative /uL Urine RBC <1 0 - 3 /hpf Urine Microscopic WBC 1 0-3 /HPF Urine Squamous Epithelial Cells None seen <5 /hpf Urine Bacteria Few H None Seen /hpf Urine Mucus Few None Seen Urine Glucose Normal Normal mg/dL Lipase 24 12-53 U/L Assessment/Plan Assessment/Plan # acute sigmoid diverticulitis # rule out SIRS vs sepsis -evident on CT abdominal pelvis -currently giving cipro and Flagyl -NPO and give IVF -pain management as needed -consider surgical consult if needed -ordered urine and blood culture # marijuana abuse disorder -counseled regarding cessation for more than 17 minutes PUD PPX: Protonix VTE PPX: Patient ambulatory Diet: NPO Goals of care discussed with the patient for more than 29 minutes: Full code status Case discussed with Dr. Soler, patient and nurse. Plan discussed with: Patient My Orders Orders - JUSTO STEWART RESIDENT Procedure Category Date Status Time Admit ADMIT 09/20/24 Transmitted 21:53 Allergies CHAPINCITO 09/20/24 In Process 21:53 Code Status CODE 09/20/24 Transmitted 21:53 Sodium Chloride 0.9% PHA 09/20/24 In Process 22:00 Ondansetron Hcl PHA 09/20/24 In Process (Zofran) 22:00 Complete Blood Count LAB 09/21/24 Verified 04:00 Comprehensive LAB 09/21/24 Verified Metabolic Panel 04:00 Npo (Nothing By DIET 09/21/24 Transmitted Mouth) Diet Breakfast Condition: Stable CHAPINCITO 09/20/24 In Process 21:53 Acetaminophen Tablet PHA 09/20/24 In Process (Tylenol Tablet) 22:00 Morphine Sulfate PHA 09/20/24 In Process Injection 22:00 Ceftriaxone 1gm/50ml PHA 09/20/24 In Process D5w (Rocephin) 22:00 Metronidazole PHA 09/21/24 In Process 500mg/100ml (Flagyl 22:00 Pantoprazole PHA 09/20/24 In Process (Protonix) 22:00 Covid19 Antigen Erica LAB 09/20/24 Logged Rapid Influenza A&B LAB 09/20/24 Logged 22:00 Drug Screen LAB 09/20/24 In Process 22:00 Blood Culture PHILIP 09/20/24 Uncollected 23:21 Urine Bacterial PHILIP 09/20/24 Uncollected Culture 23:21 Date of Service: Sep 20, 2024 Billing Provider: KYRA SOLER MD Common Visit Codes: [id number] INP/OBS CARE (HIGH) JUSTO STEWART RESIDENT Sep 20, 2024 23:24 KYRA SOLER MD Sep 21, 2024 11:20
[2024-09-21] MEDS: PANTOPRAZOLE 40 MG/10 ML VIAL INJ IV SCH (00:16)
[2024-09-21] MEDS: ONDANSETRON HCL 4 MG/2 ML VIAL IV PRN (00:16)
[2024-09-21] MEDS: MORPHINE SULFATE INJ 2 MG/ml SYRG IV PRN (00:17)
[2024-09-21 01:00] VITALS: BP 107/63; PULSE 66; RESP 16; TEMP 97.8; O2SAT 98
[2024-09-21 01:20] LABS: COVID19 ANTIGEN SOFIA FIA NEGATIVE (NEGATIVE); Rapid Influenza A Negative (Negative); Rapid Influenza B Negative (Negative)
[2024-09-21 01:36] LABS: Amphetamine Screen, Urine Neg (NEGATIVE); Barbiturate Scree,Urine Neg (NEGATIVE); Benzodiazephine Screen, Urine Neg (NEGATIVE); Cannabinoid Screen, Urine Pos (NEGATIVE); Cocaine Screen, Urine Neg (NEGATIVE); Opiate Scree,Urine Neg (NEGATIVE); Phencyclidine Screen, Urine Neg (NEGATIVE)
[2024-09-21 03:59] LABS: Basophils # (auto) 0 10 ^3/uL (0-0.2); Basophils % (auto) 0.5 % (0.0-2.0); Eosinophils # (auto) 0.1 10 ^3/uL (0-0.8); Eosinophils % (auto) 0.7 % (0.0-7.0); Hematocrit 42.2 % (41.0-53.0); Hemoglobin 13.8 g/dL (13.5-17.5); Lymphocytes # (auto) 2.2 10 ^3/uL (0.4-5.4); Lymphocytes % (auto) 21.4 % (10.0-50.0); Mean Corpuscular Hemoglobin 27.3 pg (28.0-32.0); Mean Corpuscular Hgb Conc. 32.8 g/dL (32.0-36.0); Mean Corpuscular Volume 83.3 fL (80.0-100.0); Monocytes # (auto) 0.8 10 ^3/uL (0-1.3); Monocytes % (auto) 8.1 % (0.0-12.0); Neutrophils % (auto) 69.3 % (37.0-80.0); Platelet Count (auto) 290 10^3/uL (140-450); Red Blood Cells 5.07 10^6/uL (4.5-5.90); Red Cell Distribution Width 12.9 % (11.8-14.3); White Blood Cell 10.1 10^3/uL (4.4-10.8)
[2024-09-21 04:03] LABS: Alanine Aminotransferase 27 U/L (7-40); Alkaline Phosphatase 94 U/L (46-116); Anion Gap 9 (5-15); BUN/Creatinine Ratio 16.5 (10.0-20.0); Blood Urea Nitrogen 13 mg/dL (9-23); Calcium 9.9 mg/dL (8.7-10.4); Carbon Dioxide 27 mmol/L (20-31); Chloride 103 mmol/L (98-107); Glucose 94 mg/dL (74-106); Potassium 3.8 mmol/L (3.5-5.1); Sodium 139 mmol/L (136-145)
[2024-09-21 04:04] LABS: Aspartate Aminotransferase 22 U/L (13-40); Bilirubin, Total 0.6 mg/dL (0.2-1.0); Total Protein 7.5 g/dL (5.7-8.2)
[2024-09-21 04:16] LABS: Albumin 4.8 g/dL (3.2-4.8)
[2024-09-21 05:00] VITALS: BP 130/77; PULSE 78; RESP 20; TEMP 97.7; O2SAT 97
[2024-09-21] MEDS: CIPROFLOXACIN 400MG/200ML 200 ML IV SCH (05:36)
[2024-09-21 08:21] VITALS: BP 118/74; PULSE 76; RESP 18; TEMP 98.4; O2SAT 98
[2024-09-21 09:00] VITALS: BP 118/74; PULSE 76; RESP 18; TEMP 98.4; O2SAT 98
[2024-09-21] MEDS ORDERED: ENOXAPARIN SOD 40 MG/0.4 ML SYRINGE SC SCH (10:00)
[2024-09-21] MEDS: BISACODYL 5 MG EC TAB PO ONE (14:52)
[2024-09-21 16:42] VITALS: BP 124/69; PULSE 82; RESP 18; TEMP 98.2; O2SAT 98
--- NOTE | 2024-09-21 19:00 | DVHPNRES ---
Progress Note Date Seen: Sep 21, 2024 Resident Creating Document: PARAG EASLEY RESIDENT Medical Necessity Reason Pt with a Central, PICC or Fol: No Subjective Review of Systems Patient is a 33-year-old male with past medical history of diverticulosis, who comes in due to abdominal pain. According to the patient, for the past 2 days he has been having increasing abdominal pain which is sharp and burning in nature, 6/10 in intensity. Patient notes moving makes his pain worse, pain is relieved by morphine. Per patient, 2 years ago he completed a colonoscopy when he was told he has diverticulosis with diverticulitis at the time in 2019. After that patient had another episode of diverticulitis in 2022, after which he was told he might need elective colectomy in the outpatient, however, patient notes that he has been hesitant in intimidated by the procedure. CT abdomen pelvis showed sigmoid diverticulitis, this will be patient's 3rd episode of diverticulitis in the last 5 years. Past surgical history: Denies Home medications: None Past Hospitalization: 2022 for diverticulitis Social & Personal history: Patient lives with and kids. Denies smoking. Uses alcohol occasionally. Uses marijuana daily, denies using any other drugs. Allergies: None Patient seen and examined at bedside. Patient is alert and oriented to time, place person and responding to all questions. General: Fatigue Eyes: No Pain, No Vision change, No Conjunctivae inflammation, No Eyelid inflammation, No Other, No Redness ENT: No Ear pain, No Ear discharge, No Nose pain, No Nose discharge, No Nose congestion, No Mouth pain, No Mouth swelling, No Throat pain, No Throat swelling, No Other Cardiovascular: No Chest Pain, No Palpitations, No Orthopnea, No Paroxysmal No Dyspnea, No Edema, No Lt Headedness, No Other Respiratory: No Cough, No Dry, No Shortness of breath, No SOB with exertion, No Wheezing, No Hemoptysis, No Pleuritic Pain, No Sputum, No Other Gastrointestinal: Nausea, No Vomiting, Abdominal Pain, No Diarrhea, C onstipation, No Melena, No Hematochezia, No Other Genitourinary: No Dysuria, No Frequency, No Incontinence, No Hematuria, No Retention, No Other Musculoskeletal: No other, No neck pain, No shoulder pain, No arm pain, No back pain, No hand pain, No leg pain, No foot pain Skin: No Rash, No Lesions, No Jaundice, No Bruising, No Other Objective vital signs Vital Sign Date Time Temp Pulse Resp B/P (MAP) Pulse Ox O2 Delivery O2 Flow Rate FiO2 09/21/24 16:12 77 18 114/72 09/21/24 09:00 98.4 98 98.4 09/21/24 00:10 Room Air 09/20/24 17:04 0 21 Total Intake and Output 09/20/24 09/20/24 09/21/24 15:00 23:00 07:00 Intake Total 100 ml Balance 100 ml medications Current Medications Medications Dose Ordered Sig/Yared Route Start Time Stop Time Status Last Admin Dose Admin Sodium Chloride 1,000 ml @ 120 mls/hr Q8H20M IV 09/20/24 22:00 09/21/24 14:46 120 MLS/HR Ondansetron HCl 4 mg Q4HP PRN IV 09/20/24 22:00 09/21/24 00:16 4 MG Acetaminophen 650 mg Q6HP PRN PO 09/20/24 22:00 Morphine Sulfate 2 mg Q4HPRN PRN IV 09/20/24 22:00 09/21/24 16:12 2 MG Metronidazole 100 ml @ 100 mls/hr DAILY@2200 IV 09/21/24 22:00 Pantoprazole Sodium 40 mg DAILY IV 09/20/24 22:00 09/21/24 09:34 40 MG Ciprofloxacin 200 ml @ 200 mls/hr Q8HR IV 09/21/24 06:00 09/21/24 13:52 200 MLS/HR Examination General Appearance: Cooperative. Well developed. Well nourished. NAD Head Exam: Normal inspection Neck Exam: Normal inspection. Non-tender. Normal alignment Pulmonary/Respiratory: Chest non-tender. Clear bilateral breath sounds, no crackles, no wheezing. Cardiovascular/Chest: Regular rate and rhythm. No murmurs. No JVD. Peripheral Pulses: 2+ Radial (R). 2+ Radial (L). 2+ Pedal (R). 2+ Pedal (L) Abdominal Exam: Normal bowel sounds. Soft. Generalized abdominal tenderness to palpation, no visible veins, Nontender. No hepatospenomegaly. No masses Ankle Exam: Negative ankle edema Lower extremities: Negative lower extremity edema Neuro/Mental Status: A&O x4. Coherent. Thoughts/Psych: Normal thought pattern. Appropriate mood and affect. Good judgement and insight Skin Exam: Normal inspection. Normal color. Warm. Dry laboratory and microbiology Laboratory Tests 09/21/24 03:05 Test 09/21/24 03:05 Range/Units Serum Glucose 94 74-106 mg/dL Labs and/or images reviewed: Labs reviewed by me, Image(s) reviewed by me Problem List/Assessment/Plan Problem List/Assessment/Plan Sigmoid diverticulitis Acute intractable abdominal pain due to above - CT abdomen pelvis: Sigmoid diverticulitis. No evidence of obstruction or drainable abscess at this time. - serum lipase 24 - IV NS at 120 cc/hour - IV ciprofloxacin Q 8 hours, IV metronidazole - acetaminophen 650 mg as needed Constipation - bisacodyl 5 mg p.o. once Marijuana dependence Obesity - counseled PUD prophylaxis: protonix 40mg Goals of care: Full code, discussed for >16 minutes on 09/21/2024 Plan discussed with patient Plan discussed with Dr. Pena Plan discussed with: Patient, Other (RN) My Orders My Orders Orders - PARAG EASLEY RESIDENT Procedure Category Date Status Time Clear Liq Diet DIET 09/21/24 Transmitted Dinner PARAG EASLEY RESIDENT Sep 21, 2024 19:00
[2024-09-21 20:00] VITALS: BP 117/79; PULSE 76; RESP 16; RESP 18; TEMP 98.4; O2SAT 98
[2024-09-21] MEDS: metroNIDAZOLE 500MG/100ML 100 ML IV SCH (22:56)
[2024-09-22 01:00] VITALS: BP 100/56; PULSE 58; RESP 22; TEMP 98.2; O2SAT 99
[2024-09-22 03:49] LABS: Basophils # (auto) 0 10 ^3/uL (0-0.2); Basophils % (auto) 0.4 % (0.0-2.0); Eosinophils # (auto) 0.1 10 ^3/uL (0-0.8); Monocytes # (auto) 0.7 10 ^3/uL (0-1.3)
[2024-09-22 03:52] LABS: Eosinophils % (auto) 0.9 % (0.0-7.0); Lymphocytes # (auto) 1.7 10 ^3/uL (0.4-5.4); Lymphocytes % (auto) 17.4 % (10.0-50.0); Mean Corpuscular Hgb Conc. 32.6 g/dL (32.0-36.0); Mean Corpuscular Volume 82.9 fL (80.0-100.0); Monocytes % (auto) 7.3 % (0.0-12.0); Neutrophils # (auto) 7.3 10 ^3/uL (1.6-8.6); Nucleated Red Blood Cells % 0.1 %; Platelet Count (auto) 269 10^3/uL (140-450); Red Blood Cells 5.19 10^6/uL (4.5-5.90); White Blood Cell 9.9 10^3/uL (4.4-10.8)
[2024-09-22 04:12] LABS: Anion Gap 11 (5-15); Carbon Dioxide 26 mmol/L (20-31); Chloride 104 mmol/L (98-107); Potassium 3.7 mmol/L (3.5-5.1); Sodium 141 mmol/L (136-145)
[2024-09-22 04:14] LABS: Calcium 9.8 mg/dL (8.7-10.4)
[2024-09-22 04:19] LABS: BUN/Creatinine Ratio 8.6 (10.0-20.0); Glucose 96 mg/dL (74-106)
[2024-09-22 04:28] LABS: Blood Urea Nitrogen 6 mg/dL (9-23)
[2024-09-22 04:55] VITALS: BP 131/83; PULSE 83; RESP 20; TEMP 97.9; O2SAT 99
[2024-09-22 09:00] VITALS: BP 118/78; PULSE 72; RESP 18; TEMP 98.4; O2SAT 100
[2024-09-22 13:00] VITALS: BP 133/94; PULSE 95; RESP 18; TEMP 98.2; O2SAT 99
--- NOTE | 2024-09-22 13:49 | DVHPNRES ---
Progress Note Date Seen: Sep 22, 2024 Resident Creating Document: PARAG EASLEY RESIDENT Medical Necessity Reason Pt with a Central, PICC or Fol: No Subjective Review of Systems Patient is a 33-year-old male with past medical history of diverticulosis, who comes in due to abdominal pain. According to the patient, for the past 2 days he has been having increasing abdominal pain which is sharp and burning in nature, 6/10 in intensity. Patient notes moving makes his pain worse, pain is relieved by morphine. Per patient, 2 years ago he completed a colonoscopy when he was told he has diverticulosis with diverticulitis at the time in 2019. After that patient had another episode of diverticulitis in 2022, after which he was told he might need elective colectomy in the outpatient, however, patient notes that he has been hesitant in intimidated by the procedure. CT abdomen pelvis showed sigmoid diverticulitis, this will be patient's 3rd episode of diverticulitis in the last 5 years. Past surgical history: Denies Home medications: None Past Hospitalization: 2022 for diverticulitis Social & Personal history: Patient lives with and kids. Denies smoking. Uses alcohol occasionally. Uses marijuana daily, denies using any other drugs. Allergies: None Patient seen and examined at bedside. Patient is alert and oriented to time, place person and responding to all questions. Patient reports he had a bowel movement last night which was nonbloody, soft in consistency. We will advance patient's diet to a full liquid diet and continue to monitor whether or not he can tolerate it. Objective vital signs Vital Sign Date Time Temp Pulse Resp B/P (MAP) Pulse Ox O2 Delivery O2 Flow Rate FiO2 09/22/24 13:00 98.2 95 18 133/94 (107) 99 98.2 09/21/24 20:00 Room Air* 0 21 Total Intake and Output 09/21/24 09/21/24 09/22/24 15:00 23:00 07:00 Intake Total 200 ml 1820 ml 300 ml Balance 200 ml 1820 ml 300 ml medications Current Medications Medications Dose Ordered Sig/Yared Route Start Time Stop Time Status Last Admin Dose Admin Sodium Chloride 1,000 ml @ 120 mls/hr Q8H20M IV 09/20/24 22:00 09/21/24 21:13 120 MLS/HR Ondansetron HCl 4 mg Q4HP PRN IV 2/20/25 22:00 09/21/24 00:16 4 MG Acetaminophen 650 mg Q6HP PRN PO 09/20/24 22:00 Morphine Sulfate 2 mg Q4HPRN PRN IV 09/20/24 22:00 09/22/24 04:11 2 MG Metronidazole 100 ml @ 100 mls/hr DAILY@2200 IV 09/21/24 22:00 09/21/24 22:56 100 MLS/HR Pantoprazole Sodium 40 mg DAILY IV 09/20/24 22:00 09/22/24 09:13 40 MG Ciprofloxacin 200 ml @ 200 mls/hr Q8HR IV 09/21/24 06:00 09/22/24 05:17 200 MLS/HR Examination General Appearance: Cooperative. Well developed. Well nourished. NAD Head Exam: Normal inspection Neck Exam: Normal inspection. Non-tender. Normal alignment Pulmonary/Respiratory: Chest non-tender. Clear bilateral breath sounds, no crackles, no wheezing. Cardiovascular/Chest: Regular rate and rhythm. No murmurs. No JVD. Peripheral Pulses: 2+ Radial (R). 2+ Radial (L). 2+ Pedal (R). 2+ Pedal (L) Abdominal Exam: Normal bowel sounds. Soft. Generalized abdominal tenderness to palpation, mild but improved from prior exam, no visible veins, Nontender. No hepatospenomegaly. No masses Ankle Exam: Negative ankle edema Lower extremities: Negative lower extremity edema Neuro/Mental Status: A&O x4. Coherent. Thoughts/Psych: Normal thought pattern. Appropriate mood and affect. Good judgement and insight Skin Exam: Normal inspection. Normal color. Warm. Dry laboratory and microbiology Laboratory Tests 09/22/24 03:27 Test 09/22/24 03:27 Range/Units Serum Glucose 96 74-106 mg/dL Microbiology Date/Time Source Procedure Growth Status 09/21/24 13:25 Blood Blood Culture - Preliminary NO GROWTH AFTER 24 HOURS OF INCUBATION. Resulted 09/21/24 08:07 Voided Urine Urine Culture - Preliminary Resulted Labs and/or images reviewed: Labs reviewed by me, Image(s) reviewed by me Problem List/Assessment/Plan Problem List/Assessment/Plan Sigmoid diverticulitis Acute intractable abdominal pain due to above - CT abdomen pelvis: Sigmoid diverticulitis. No evidence of obstruction or drainable abscess at this time. - serum lipase 24 - IV NS at 120 cc/hour - IV ciprofloxacin Q 8 hours, IV metronidazole - acetaminophen 650 mg as needed - advanced from a clear liquid to a full liquid diet Constipation - bisacodyl 5 mg p.o. once Marijuana dependence Obesity - counseled PUD prophylaxis: protonix 40mg Goals of care: Full code, discussed for >16 minutes on 09/21/2024 Plan discussed with patient Plan discussed with Dr. Granger Plan discussed with: Patient, Other (RN) My Orders My Orders Orders - PARAG EASLEY RESIDENT Procedure Category Date Status Time Full Liq Diet DIET 09/22/24 Transmitted Lunch PARAG EALSEY RESIDENT Sep 22, 2024 13:49
[2024-09-22] MEDS ORDERED: MET500T PO (14:48)
[2024-09-22] MEDS ORDERED: LEVO750T40 PO (14:48)
--- NOTE | 2024-09-22 14:53 | DVHDSRES ---
Discharge Summary Date of Admission Resident Creating Document: PARAG EASLEY RESIDENT Sep 20, 2024 at 21:53 Date of Discharge: Sep 22, 2024 Admitting Diagnosis Acute intractable abdominal pain Labs/Diagnostic Data: Laboratory Results Test 09/22/24 03:27 09/21/24 03:05 09/21/24 00:23 09/20/24 22:17 White Blood Count 9.9 10^3/uL (4.4-10.8) Red Blood Count 5.19 10^6/uL (4.5-5.90) Hemoglobin 14.0 g/dL (13.5-17.5) Hematocrit 43.0 % (41.0-53.0) Mean Corpuscular Volume 82.9 fL (80.0-100.0) Mean Corpuscular Hemoglobin 27.0 pg (28.0-32.0) Mean Corpuscular Hemoglobin Concent 32.6 g/dL (32.0-36.0) Red Cell Distribution Width 13.0 % (11.8-14.3) Platelet Count 269 10^3/uL (140-450) Mean Platelet Volume 8.7 fL (6.9-10.8) Neutrophils (%) (Auto) 74.0 % (37.0-80.0) Lymphocytes (%) (Auto) 17.4 % (10.0-50.0) Monocytes (%) (Auto) 7.3 % (0.0-12.0) Eosinophils (%) (Auto) 0.9 % (0.0-7.0) Basophils (%) (Auto) 0.4 % (0.0-2.0) Neutrophils # (Auto) 7.3 10 ^3/uL (1.6-8.6) Lymphocytes # (Auto) 1.7 10 ^3/uL (0.4-5.4) Monocytes # (Auto) 0.7 10 ^3/uL (0-1.3) Eosinophils # (Auto) 0.1 10 ^3/uL (0-0.8) Basophils # (Auto) 0 10 ^3/uL (0-0.2) Nucleated Red Blood Cells 0.1 % Sodium Level 141 mmol/L (136-145) Potassium Level 3.7 mmol/L (3.5-5.1) Chloride Level 104 mmol/L (98-107) Carbon Dioxide Level 26 mmol/L (20-31) Anion Gap 11 (5-15) Blood Urea Nitrogen 6 mg/dL (9-23) Creatinine 0.70 mg/dL (0.700-1.30) Glomerular Filtration Rate Calc 126 mL/min (>90) BUN/Creatinine Ratio 8.6 (10.0-20.0) Serum Glucose 96 mg/dL (74-106) Calcium Level 9.8 mg/dL (8.7-10.4) Total Bilirubin 0.6 mg/dL (0.2-1.0) Aspartate Amino Transferase (AST) 22 U/L (13-40) Alanine Aminotransferase (ALT) 27 U/L (7-40) Alkaline Phosphatase 94 U/L (46-116) Total Protein 7.5 g/dL (5.7-8.2) Albumin 4.8 g/dL (3.2-4.8) Influenza Type A Antigen Negative (Negative) Influenza Type B Antigen Negative (Negative) SARS-CoV-2 Antigen (Rapid) Negative (NEGATIVE) Prothrombin Time 11.5 sec (9.3-11.8) Prothrombin Time INR 1.09 (0.9-1.15) Activated Partial Thromboplast Time 30.5 SEC (24.5-34.5) Lactic Acid Level 1.1 mmol/L (0.4-2.0) Magnesium Level 2.2 mg/dL (1.6-2.6) Plasma/Serum Blood Alcohol 4.4 mg/dL (<10) Test 09/20/24 19:42 09/20/24 14:30 Urine Color Yellow (Yellow) Urine Clarity Clear (Clear) Urine pH 7.0 (5.0-9.0) Urine Specific [place] 1.025 (1.001-1.035) Urine Protein Negative (Negative) Urine Ketones Negative (Negative) Urine Blood Negative /uL (Negative) Urine Nitrite Negative (Negative) Urine Bilirubin Negative (Negative) Urine Urobilinogen Normal mg/dL (Negative) Urine Leukocyte Esterase Negative /uL (Negative) Urine RBC <1 /hpf (0 - 3) Urine Microscopic WBC 1 /HPF (0-3) Urine Squamous Epithelial Cells None seen /hpf (<5) Urine Bacteria Few /hpf (None Seen) Urine Mucus Few (None Seen) Urine Glucose Normal mg/dL (Normal) Urine Opiates Screen Neg (NEGATIVE) Urine Fentanyl Screen Neg (NEGATIVE) Urine Barbiturates Screen Neg (NEGATIVE) Urine Phencyclidine Screen Neg (NEGATIVE) Urine Amphetamines Screen Neg (NEGATIVE) Urine Benzodiazepines Screen Neg (NEGATIVE) Urine Cocaine Screen Neg (NEGATIVE) Urine Cannabinoids Screen Pos (NEGATIVE) Lipase 24 U/L (12-53) Other Laboratory Tests 09/22/24 03:27 Brief Hx & Hospital Course: Patient is a 33-year-old male with past medical history of diverticulosis, who comes in due to abdominal pain. According to the patient, for the past 2 days he has been having increasing abdominal pain which is sharp and burning in nature, 6/10 in intensity. Patient notes moving makes his pain worse, pain is relieved by morphine. Per patient, 2 years ago he completed a colonoscopy when he was told he has diverticulosis with diverticulitis at the time in 2019. After that patient had another episode of diverticulitis in 2022, after which he was told he might need elective colectomy in the outpatient, however, patient notes that he has been hesitant in intimidated by the procedure. CT abdomen pelvis showed sigmoid diverticulitis, this will be patient's 3rd episode of diverticulitis in the last 5 years. Hospital course: CT abdomen pelvis showed sigmoid diverticulitis, no evidence of cervical drainable abscess at this time. Serum lipase was 24. Patient was started on IV NS at 120 cc/hour along with IV ciprofloxacin and IV metronidazole. Acetaminophen 650 mg was used as needed for pain. For constipation patient was given Dulcolax 5 mg once. Patient was counseled extensively about the harmful effects of using marijuana as well as the importance of a healthy diet, lifestyle and activity for his well-being. On the day of discharge, patient appeared well and had stable vital signs, patient was advanced to a full liquid diet which he tolerated without any discomfort, patient also ate a sandwich and denied any nausea, vomiting or abdominal discomfort after that. Patient said abdominal pain had resolved and only felt mild soreness 2/10 in intensity. Patient also had a bowel movement which was nonbloody and soft and patient reported improvement in his abdominal pain after that. Patient was discharged home with levofloxacin 750 mg once daily for 5 days and metronidazole 500 mg t.i.d. for 5 days. His hospital course was uncomplicated. Patient was scheduled to follow up in the discharge clinic. General Appearance: Cooperative. Well developed. Well nourished. NAD Head Exam: Normal inspection Neck Exam: Normal inspection. Non-tender. Normal alignment Pulmonary/Respiratory: Chest non-tender. Clear bilateral breath sounds, no crackles, no wheezing. Cardiovascular/Chest: Regular rate and rhythm. No murmurs. No JVD. Peripheral Pulses: 2+ Radial (R). 2+ Radial (L). 2+ Pedal (R). 2+ Pedal (L) Abdominal Exam: Normal bowel sounds. Soft. Nontender, no visible veins, Nontender. No hepatospenomegaly. No masses Ankle Exam: Negative ankle edema Lower extremities: Negative lower extremity edema Neuro/Mental Status: A&O x4. Coherent. Thoughts/Psych: Normal thought pattern. Appropriate mood and affect. Good judgement and insight Skin Exam: Normal inspection. Normal color. Warm. Dry Operations or Procedures CT abdomen and pelvis without contrast INDICATION: pain TECHNIQUE: Serial axial images were performed through the abdomen and pelvis and then reformatted in the sagittal and coronal plane. All CT scans at this medical facility are performed using dose modulation techniques as appropriate to a performed exam including the following: Automated exposure control was utilized; adjustment of the MA and/or KvP according to patient size; and use of iterative reconstruction technique. FINDINGS: Lung bases clear. Liver and spleen are normal in size without focal mass. No renal masses, stones or hydronephrosis. No masses or enlargement of the adrenal glands or pancreas. No biliary dilatation. No gallstones. There is marked thickening of the flores of the sigmoid colon with edema in the surrounding mesentery. No evidence of obstruction or focal abscess. The appendix is normal in appearance. No free fluid. Within the pelvis, bladder is smooth walled without stones. No abnormal masses or fluid collections. IMPRESSION: 1. Sigmoid diverticulitis. 2. No evidence of obstruction or drainable abscess at this time. Condition at Discharge: Good Final Diagnosis/Problems List Sigmoid diverticulitis Acute intractable abdominal pain due to above Constipation Marijuana dependence Obesity Discharge Disposition: Home Discharge Instruct/Medications Diet: See Comment Diet comment: Continue a full liquid diet for another 3-5 days, advance diet as tolerated Activity: No Restrictions, As Tolerated Follow Up/Referral: Please follow up with PCP in 1-2 weeks Please follow up in discharge clinic Medications: Levofloxacin 750 mg once daily for 5 days Metronidazole 500 mg 3 times a day for 5 days Discharge Statement: "Patient was advised to return to the ER or call 911 if any headaches, dizziness, shortness of breath, chest pain, abdominal pain, bleeding, fevers, or worsening of medical condition. Patient was counseled about treatment plan, medications, possible side effects, patientverbalized understanding. All questions were answered to the best of my ability. This discharge took greater then 30 minutes in planning, reviewing documentation, counseling the patient, and discussing with other team members." ASSESSMENT ASSESSMENT Assessment Sigmoid diverticulitis Acute intractable abdominal pain due to above Constipation Marijuana dependence Obesity PARAG EASLEY RESIDENT Sep 22, 2024 14:53
== END 2024-09-22 15:45 | disposition home or self-care (01) | DRG 244 ==
LOC: ER 13:20 → OVERFLOW 21:53
PROVIDERS: ADMIT Student in an Organized Health Care Education/Training Program; ATTEND Emergency Medicine
DX: K57.32 Diverticulitis of large intestine without perforation or abscess without bleeding (principal); E66.9 Obesity, unspecified; F12.20 Cannabis dependence, uncomplicated; Z20.822 Contact with and (suspected) exposure to COVID-19; K59.00 Constipation, unspecified; Z79.891 Long term (current) use of opiate analgesic; Z79.899 Other long term (current) drug therapy; Z79.2 Long term (current) use of antibiotics; Z68.29 Body mass index [BMI] 29.0-29.9, adult
CPT/HCPCS: 36415; 74176; 80048; 80053; 80307; 80320; 81001; 83605; 83690; 83735; 85025; 85610; 85730; 87040; 87086; 87426; 87804; 96365; 96375; G0378; J2405; J2470; J3490

== ENCOUNTER 2024-09-26 21:32 | Inpatient (IN) | payer MEDICAID ==
[~2024-09-26] VITALS: Ht 165.1 cm; Wt 73.8 kg
[~2024-09-26 21:32] MED LIST changes: +LEVO750T40 PO
[2024-09-26 21:59] LABS: Eosinophils # (auto) 0 10 ^3/uL (0-0.8); Hemoglobin 14.7 g/dL (13.5-17.5); Monocytes # (auto) 1.2 10 ^3/uL (0-1.3); Neutrophils # (auto) 12.6 10 ^3/uL (1.6-8.6); White Blood Cell 15.8 10^3/uL (4.4-10.8)
[2024-09-26 22:01] LABS: Basophils # (auto) 0.1 10 ^3/uL (0-0.2); Basophils % (auto) 0.4 % (0.0-2.0); Eosinophils % (auto) 0.2 % (0.0-7.0); Hematocrit 45.3 % (41.0-53.0); Lymphocytes % (auto) 12.7 % (10.0-50.0); Mean Corpuscular Hemoglobin 26.7 pg (28.0-32.0); Mean Corpuscular Hgb Conc. 32.5 g/dL (32.0-36.0); Monocytes % (auto) 7.4 % (0.0-12.0); Neutrophils % (auto) 79.3 % (37.0-80.0); Nucleated Red Blood Cells % 0.1 %; Platelet Count (auto) 348 10^3/uL (140-450); Red Blood Cells 5.53 10^6/uL (4.5-5.90); Red Cell Distribution Width 12.9 % (11.8-14.3)
--- NOTE | 2024-09-26 22:07 | ED.PDOC ---
GI ASSESSMENT HPI Comments 33 year old male presents to the ED with a chief complaint of abdominal pain onset today (09/26/24) around 18:00. Patient states he began experiencing diffused abdominal pain, described as an aching, sharp pain. Patient was discharged from this hospital on 09/22/24, was prescribed antibiotics, states he has been taking them as prescribed. Pain had resolved, returned today. PMHx diverticulitis. Denies any nausea, vomiting, diarrhea, chest pain, shortness of breath, headache, dizziness. No other symptoms or modifying factors present at this time. Chief Complaint: Abdominal Pain Time Seen by MD: 21:57 Primary Care Provider: NONE Reviewed Notes: Medications, Allergies Allergies: Coded Allergies: NO KNOWN ALLERGIES (Unverified , 10/25/18) Home Meds Active Scripts Metronidazole (Metronidazole) 500 Mg Tab, 500 MG PO TID for 5 Days, #15 TAB Prov:PARAG EASLEY RESIDENT 09/22/24 Levofloxacin Hemihydrate (LEVOFLOXACIN) 750 Mg Tab, 1 TAB PO DAILY for 5 Days, #5 TAB Prov:PARAG EASLEY RESIDENT 09/22/24 Hydrocodone-Acetaminophen (Hydrocodone Bitartrate/AC 5-325 mg) 1 Tab Tab, 1 TAB PO Q4HPRN PRN, #20 TAB Prov:PRETTY BONILLA DO 09/07/23 Metronidazole (Flagyl) 375 Mg Cap, 500 MG PO TID for 7 Days, #21 CAP Prov:PRETTY BONILLA DO 09/07/23 Levofloxacin Hemihydrate (LEVAQUIN 500 MG) 500 Mg Tab, 1 TAB PO DAILY, #7 TAB Prov:PRETTY BONILLA DO 09/07/23 Hydrocodone-Acetaminophen (Hydrocodone Bitartrate/AC 5-325 mg) 1 Tab Tab, 1 TAB PO QID PRN, #30 TAB Prov:GINO SULLIVAN MD 05/16/23 Metronidazole (Metronidazole) 500 Mg Tab, 500 MG PO TID, #42 TAB Prov:GINO SULLIVAN MD 05/16/23 Levofloxacin Hemihydrate (LEVAQUIN 500 MG) 500 Mg Tab, 1 TAB PO DAILY, #14 TAB Prov:GINO SULLIVAN MD 05/16/23 Hydrocodone-Acetaminophen (Hydrocodone Bitartrate/AC 5-325 mg) 1 Tab Tab, 1 TAB PO Q8HP PRN for 3 Days, #9 TAB Prov:SHORTY TANG FIELD H[employer] AND LACROS[employer] COACH 04/19/23 Metronidazole (Flagyl) 500 Mg Tab, 1 TAB PO TID for 7 Days, #21 TAB Prov:SHORTY TANG FIELD H[employer]OS[employer] COACH 04/19/23 Levofloxacin Hemihydrate (LEVAQUIN 500 MG) 500 Mg Tab, 1 TAB PO DAILY for 7 Days, #7 TAB Prov:SHORTY TANG NP 04/19/23 Ciprofloxacin Hcl (Cipro) 500 Mg Tab, 500 MG PO BID for 5 Days, #10 TAB Prov:SWATHI BLACKWOOD MD 09/16/22 Metronidazole (Flagyl) 500 Mg Tab, 500 MG PO Q8HR for 5 Days, #15 TAB Prov:SWATHI BLACKWOOD MD 09/16/22 Ondansetron (Zofran) 4 Mg Tab, 4 MG PO BID for 7 Days, #14 MG Prov:CHAYA CALDERÓN MD 05/04/22 Oxycodone W/ Acetaminophen (Percocet 5/325MG) 1 Tab Tb, 1 TAB PO BID for 7 Days, #14 TAB Prov:CHAYA CALDERÓN MD 05/04/22 Ciprofloxacin Hcl (Cipro) 500 Mg Tab, 500 MG PO BID for 7 Days, #14 TAB Prov:CHAYA CALDERÓN MD 05/04/22 Metronidazole (Flagyl) 500 Mg Tab, 500 MG PO BID for 7 Days, #14 TAB Prov:CHAYA CALDERÓN MD 05/04/22 Information Source: Patient Mode of Arrival: Ambulatory Timing: Hours Duration: Since onset Prehospital treatment: None Quality: Aching, Sharp Vomitus: None Severity: Moderate Recent: Antibiotics Recent Hx of: Other (diverticulitis ) Pain Location: Diffuse Modifying Factors: Nothing Associated sign and symptoms: Abdominal Pain Past Medical History Past Medical History (Other): diverticulitis Surgical History: Denies all surgeries Family History Family History: Reviewed,noncontributory to illness Social History Smoker: Non-Smoker Alcohol: Occasionally Drugs: Marijuana Lives In: Home Constitutional: denies: chills, diaphoresis, fatigue, fever, malaise, sweats, weakness, others EENTM: denies: blurred vision, double vision, ear bleeding, ear discharge, ear drainage, ear pain, ear ringing, eye pain, eye redness, hearing loss, mouth pain, mouth swelling, nasal discharge, nose bleeding, nose congestion, nose pain, photophobia, tearing, throat pain, throat swelling, voice changes, others Respiratory: denies: cough, hemoptysis, orthopnea, SOB at rest, shortness of breath, SOB with excertion, stridor, wheezing, others Cardiovascular: denies: chest pain, dizzy spells, diaphoresis, Dyspnea on e xertion, edema, irregular heart beat, left arm pain, lightheadedness, palpitations, PND, syncope, others Gastrointestinal: reports: abdominal pain; denies: abdomen distended, blood streaked bowels, constipated, diarrhea, dysphagia, difficulty swallowing, hematemesis, melena, nausea, poor appetite, poor fluid intake, rectal bleeding, rectal pain, vomiting, others Genitourinary: denies: burning, dysuria, flank pain, frequency, hematuria, incontinence, penile discharge, penile sore, pain, testicle pain, testicle swelling, urgency, others Neurological: denies: dizziness, fainting, headache, left sided numbness, left sided weakness, numbness, paresthesia, pre-existing deficit, right sided numbness, right sided weakness, seizure, speech problems, tingling, tremors, weakness, others Musculoskeletal: denies: back pain, gout, joint pain, joint swelling, muscle pain, muscle stiffness, neck pain, others Integumetry: denies: bruises, change in color, change in hair/nails, dryness, laceration, lesions, lumps, rash, wounds, others Allergic/Immunocompromised: denies: Difficulty Healing, Frequent Infections, Hives, Itching, others Hematologic/Lymphatic: denies: anemia, blood clots, easy bleeding, easy bruising, swollen glands, others Endocrine: denies: excessive hunger, excessive sweating, excessive thirst, excessive urination, flushing, intolerance to cold, intolerance to heat, unexplained weight gain, unexplained weight loss, others Psychiatric: denies: anxiety, bipolar disorder, depression, hopeless, panic disorder, schizophrenia, sleepless, suicidal, others All Other Systems: Reviewed and Negative Physical Exam General Appearance: No Apparent Distress, Normal HEENT: Normal ENT Inspection, Pharynx Normal, TMs Normal Neck: Full Range of Motion, Non-Tender, Normal, Normal Inspection Respiratory: Chest Non-Tender, Lungs Clear, No Accessory Muscle Use, No Respiratory Distress, Normal Breath Sounds Cardiovascular: No Edema, No JVD, No Murmur, No Gallop, Normal Peripheral Pulses, Regular Rate/Rhythm Breast Exam: Deferred Gastrointestinal: No Organomegaly, Non Tender, No Pulsatile Mass, Normal Bowel Sounds, Soft Genitalia: Deferred Pelvic: Deferred Rectal: Deferred Extremities: No calf tenderness, Normal capillary refill, Normal inspection, Normal range of motion, Non-tender, No pedal edema Musculoskeletal : Apperance: Normal Neurologic: Alert, adoption specialist II-XII nml as Tested, No Motor Deficits, Normal Affect, Normal Mood, No Sensory Deficits Cerebellar Function: Normal Reflexes: Normal Skin: Dry, Normal Color, Warm Lymphatic: No Adenopathy Was a procedure done? Was a procedure done?: No GI differential Dx Differential Diagnosis: Appendicitis, Constipation, Diverticular disease, Gastritis/PUD, GI hemorrhage, UTI, Urolithiasis, Ischemic Bowel, Other X-Ray, Labs, Meds, VS Vital Signs Date Time Temp Pulse Resp B/P (MAP) Pulse Ox O2 Delivery O2 Flow Rate FiO2 09/26/24 21:58 98.5 121 18 125/77 (93) 95 Lab Test 09/26/24 22:30 09/26/24 21:40 Range/Units Urine Color Pending Urine Clarity Pending Urine pH Pending Urine Specific [place] Pending Urine Protein Pending Urine Ketones Pending Urine Blood Pending Urine Nitrite Pending Urine Bilirubin Pending Urine Urobilinogen Pending Urine Leukocyte Esterase Pending Urine RBC Pending Urine Microscopic WBC Pending Urine Squamous Epithelial Cells Pending Urine Bacteria Pending Urine Glucose Pending White Blood Count 15.8 #H 4.4-10.8 10^3/uL Red Blood Count 5.53 4.5-5.90 10^6/uL Hemoglobin 14.7 13.5-17.5 g/dL Hematocrit 45.3 41.0-53.0 % Mean Corpuscular Volume 82.0 80.0-100.0 fL Mean Corpuscular Hemoglobin 26.7 L 28.0-32.0 pg Mean Corpuscular Hemoglobin Concent 32.5 32.0-36.0 g/dL Red Cell Distribution Width 12.9 11.8-14.3 % Platelet Count 348 140-450 10^3/uL Mean Platelet Volume 8.6 6.9-10.8 fL Neutrophils (%) (Auto) 79.3 37.0-80.0 % Lymphocytes (%) (Auto) 12.7 10.0-50.0 % Monocytes (%) (Auto) 7.4 0.0-12.0 % Eosinophils (%) (Auto) 0.2 0.0-7.0 % Basophils (%) (Auto) 0.4 0.0-2.0 % Neutrophils # (Auto) 12.6 H 1.6-8.6 10 ^3/uL Lymphocytes # (Auto) 2.0 0.4-5.4 10 ^3/uL Monocytes # (Auto) 1.2 0-1.3 10 ^3/uL Eosinophils # (Auto) 0 0-0.8 10 ^3/uL Basophils # (Auto) 0.1 0-0.2 10 ^3/uL Nucleated Red Blood Cells 0.1 % Sodium Level 139 136-145 mmol/L Potassium Level 3.6 3.5-5.1 mmol/L Chloride Level 102 98-107 mmol/L Carbon Dioxide Level 28 20-31 mmol/L Anion Gap 9 5-15 Blood Urea Nitrogen 7 L 9-23 mg/dL Creatinine 0.78 0.700-1.30 mg/dL Glomerular Filtration Rate Calc 122 >90 mL/min BUN/Creatinine Ratio 9.0 L 10.0-20.0 Serum Glucose 106 74-106 mg/dL Calcium Level 10.3 8.7-10.4 mg/dL Total Bilirubin 0.5 0.2-1.0 mg/dL Aspartate Amino Transferase (AST) 22 13-40 U/L Alanine Aminotransferase (ALT) 26 7-40 U/L Alkaline Phosphatase 87 46-116 U/L Total Protein 7.9 5.7-8.2 g/dL Albumin 5.2 H 3.2-4.8 g/dL Lipase 30 12-53 U/L [address] [address] Ph: [phone] DIAGNOSTIC IMAGING Diagnostic Imaging Report : [id number] Signed PATIENT: ALEX SCOTT ACCT: [id number] UNIT: [id number] : 1990 LOC: ER ROOM / BED: / AGE / SEX: 33 / M ADM STATUS: REG ER SERVICE 01 ORDERING PHYSICIAN: SHON CHOI MD PROCEDURE(s): ABPLIV - CT AB PEL WITH IV CON ONLY REASON: LLQ pain ORDER NUMBER(s): [id number], ACCESSION NUMBER(s): [id number] Exam: CT CT AB PEL WITH IV CON ONLY History: LLQ pain Comparison Study: None available at time of dictation. Contrast: Type of contrast: Omnipaque 3 Contrast injected: 100 mL Contrast wasted: 0 TECHNIQUE: A digital solar engineer image was obtained. During the uneventful, intravenous administration of contrast material, multislice data acquisition was obtained through the abdomen and pelvis. The data set was subsequently reconstructed into axial images. Images were reviewed on a work station using a combination of axial and multiplanar using a variety of window levels and settings. Radiation Dose Information: CT Dose: CTDI volume is 8.51 mGy. Dose-length product is 554.44 mGy*cm FINDINGS: Lung Bases: No acute or significant lung base finding. Normal heart size. No pleural or pericardial effusion. Liver: The liver is normal in size. No focal lesions. Normal hepatic vascular enhancement. Gallbladder and Biliary Tree: Unremarkable Spleen: Unremarkable Pancreas: The pancreas is normal in appearance without focal lesions or abnormal enhancement. Adrenal Glands: Unremarkable Kidneys: Kidneys demonstrate normal symmetric enhancement without focal lesions, calculi or hydronephrosis. Bladder: Unremarkable Bowel: The stomach is grossly normal in appearance. Severe inflammatory changes in the left and sigmoid colon suggesting diverticulitis. Possible small bubbles of air in the adjacent soft tissues suggesting diverticulitis. The appendix is not visualized; however, no secondary findings of acute appendicitis identified. Ascites: Absent Lymphadenopathy: No mesenteric, retroperitoneal or periportal lymphadenopathy. Abdominal Wall and Mesentery: Unremarkable. Vasculature: The visualized abdominal aorta is normal in size and caliber. Abdominal and pelvic vessels demonstrate normal enhancement. Pelvic Organs: Unremarkable Musculoskeletal: No aggressive focal bony lesions, acute fractures or dislocation. Soft tissues: Unremarkable. IMPRESSION: 1. Diverticulitis in the descending left colon and sigmoid colon with a large inflammatory mass noted extending in the mid abdomen for 8.2 by 6.8 cm. There are small bubbles of air in the soft tissues this may be free air findings consistent with diverticulitis area measures 8.2 by 6.[address] scans at this medical facility are performed using dose modulation techniques as appropriate to a performed exam including the following: Automated exposure control was utilized; adjustment of the MA and/or KV according to patient size; and use of iterative reconstruction technique. HS:Y ATED BY: NORI GUARDADO Jr., DO DICTATED DATE/TIME: 09/26/242246 SIGNED BY: NORI GUARDADO Jr., SIGNED DATE/TIME: 09/26/242246 CC: Time of 1ST Reevaluation: 22:27 Reevaluation 1ST: Unchanged Time of 2ND Reevaluation: 23:32 Reevaluation 2ND: Unchanged Patient Education/Counseling: Diagnosis, Treatment, Prognosis Family Education/Counseling: No Family Present Additional Information The following tests were ordered, and results were reviewed by me: CBC, CMP, LIPASE, UA, CT AB PEL WITH IV CON I reviewed and agreed with the following test results read by other providers: CT AB PEL WITH IV CON I discussed treatment and results with medical personnel and: patient Departure 1 Departure Time of Disposition: 23:32 Impression: Primary Impression: Acute diverticulitis Additional Impression: Abdominal abscess Disposition: ADMITTED INPATIENT Condition: Guarded Discharged With: Self Comments Left Lower Quadrant Abdominal Pain - Acute Diverticulitis with Abscess Chief Complaint: Left lower quadrant abdominal pain History of Present Illness: 33-year-old male with known history of diverticulosis presents to the Emergency Department with left lower quadrant abdominal pain. Imaging reveals presence of an intra-abdominal abscess with evidence of small perforation. Review of Systems: Limited by acute presentation Constitutional: Presents with abdominal pain Gastrointestinal: Left lower quadrant pain All other systems reviewed and negative Physical Exam: Limited documentation from customer care consultant Abdomen: Left lower quadrant tenderness noted Lab Results: WBC: 15.8 (Elevated) Imaging and Other Relevant Results: CT Abdomen/Pelvis: - 8.2 x 6.8 cm mass in mid-abdomen - Signs of diverticulitis - Small bubbles of air in soft tissue indicating perforation - Findings consistent with intra-abdominal abscess Medical Decision Making: Summary Statement: 33-year-old male with history of diverticulosis presenting with acute left lower quadrant pain, found to have complicated diverticulitis with abscess formation and microperforation. Problem List: 1. Acute diverticulitis with abscess 2. Bowel microperforation 3. Leukocytosis Differential Diagnosis: 1. Complicated diverticulitis 2. Bowel perforation 3. Intra-abdominal abscess 4. Inflammatory bowel disease 5. Colon cancer ED Course: Patient received IV fluids and was started on broad-spectrum antibiotics (Zosyn). Surgery consultation obtained. Decision made to admit for IV antibiotics, supportive care, and further surgical management. Assessment and Plan: 1. Acute Diverticulitis with Intra-abdominal Abscess and Microperforation: - Admit to hospital under Surgery service - Continue IV Zosyn - NPO status - IV fluid hydration - Serial abdominal exams - Surgical evaluation for possible intervention 2. Leukocytosis: - Likely secondary to acute inflammatory process - Will monitor trending with daily CBC Billing Information: ICD-10: K57.32 - Diverticulitis of large intestine with perforation and abscess ICD-10: K65.1 - Peritoneal abscess ICD-10: D72.829 - Elevated white blood cell count Critical Care Note Critical Care Time?: Yes (35 min-critical care time only) Critical care comment: Total critical care time: Approximately 36 minutes Due to a high probability of clinically significant, life threatening deterioration, the patient required my highest level of preparedness to intervene emergently and I personally spent this critical care time directly and personally managing the patient. This critical care time included obtaining a history; examining the patient; pulse oximetry; ordering and review of studies; arranging urgent treatment with development of a management plan; evaluation of patient's response to treatment; frequent reassessment; and, discussions with other providers. This critical care time was performed to assess and manage the high probability of imminent, life-threatening deterioration that could result in multi-organ failure. It was exclusive of separately billable procedures and treating other patients. Stability Stability form required: No Heart Score Heart Score: Heart Score Response (Comments) Value History N/A 0 EKG N/A 0 Age N/A 0 Risk Factors N/A 0 Troponin N/A 0 Total 0 I personally scribed for SHON CHOI MD ([email or web address]) on 09/26/24 at 22:07. Electronically submitted by Мария Castano ([email or web address]). I personally scribed for SHON CHOI MD ([email or web address]) on 09/26/24 at 22:08. Electronically submitted by Мария Castano ([email or web address]). I personally scribed for SHON CHOI MD ([email or web address]) on 09/26/24 at 23:02. Electronically submitted by Мария Castano ([email or web address]). SHON CHOI MD Sep 26, 2024 22:07
[2024-09-26] MEDS: SODIUM CHLORIDE 0.9% 1,000 ML IVB ONE (22:15)
[2024-09-26] MEDS: IOHEXOL 300 MG/ML 100ML BOTTLE IJ ONE (22:20)
[2024-09-26 22:27] LABS: Alanine Aminotransferase 26 U/L (7-40); Alkaline Phosphatase 87 U/L (46-116); Anion Gap 9 (5-15); Aspartate Aminotransferase 22 U/L (13-40); Calcium 10.3 mg/dL (8.7-10.4); Carbon Dioxide 28 mmol/L (20-31); Chloride 102 mmol/L (98-107); Glucose 106 mg/dL (74-106); Lipase 30 U/L (12-53); Potassium 3.6 mmol/L (3.5-5.1); Sodium 139 mmol/L (136-145)
[2024-09-26 22:28] LABS: Albumin 5.2 g/dL (3.2-4.8); Bilirubin, Total 0.5 mg/dL (0.2-1.0); Blood Urea Nitrogen 7 mg/dL (9-23); Total Protein 7.9 g/dL (5.7-8.2)
--- NOTE | 2024-09-26 22:49 | DVH ---
Exam: CT CT AB PEL WITH IV CON ONLY History: LLQ pain Comparison Study: None available at time of dictation. Contrast: Type of contrast: Omnipaque 3 Contrast injected: 100 mL Contrast wasted: 0 TECHNIQUE: A digital senior clinical sas programmer image was obtained. During the uneventful, intravenous administration of c ontrast material, multislice data acquisition was obtained through the abdomen and pelvis. The data s et was subsequently reconstructed into axial images. Images were reviewed on a work station using a c ombination of axial and multiplanar using a variety of window levels and settings. Radiation Dose Information: CT Dose: CTDI volume is 8.51 mGy. Dose-length product is 554.44 mGy*cm FINDINGS: Lung Bases: No acute or significant lung base finding. Normal heart size. No pleural or pericardial effusion. Liver: The liver is normal in size. No focal lesions. Normal hepatic vascular enhancement. Gallbladder and Biliary Tree: Unremarkable Spleen: Unremarkable Pancreas: The pancreas is normal in appearance without focal lesions or abnormal enhancement. Adrenal Glands: Unremarkable Kidneys: Kidneys demonstrate normal symmetric enhancement without focal lesions, calculi or hydroneph rosis. Bladder: Unremarkable Bowel: The stomach is grossly normal in appearance. Severe inflammatory changes in the left and sigmo id colon suggesting diverticulitis. Possible small bubbles of air in the adjacent soft tissues sugges ting diverticulitis. The appendix is not visualized; however, no secondary findings of acute appendic itis identified. Ascites: Absent Lymphadenopathy: No mesenteric, retroperitoneal or periportal lymphadenopathy. Abdominal Wall and Mesentery: Unremarkable. Vasculature: The visualized abdominal aorta is normal in size and caliber. Abdominal and pelvic vess els demonstrate normal enhancement. Pelvic Organs: Unremarkable Musculoskeletal: No aggressive focal bony lesions, acute fractures or dislocation. Soft tissues: Unremarkable. IMPRESSION: 1. Diverticulitis in the descending left colon and sigmoid colon with a large inflammatory mass noted extending in the mid abdomen for 8.2 by 6.8 cm. There are small bubbles of air in the soft tissues this may be free air findings consistent with diverticulitis area measures 8.2 by 6.[address] scans at this medical facility are performed using dose modulation techniques as appropriat e to a performed exam including the following: Automated exposure control was utilized; adjustment of the MA and/or KV according to patient size; and use of iterative reconstruction technique. HS:Y
[2024-09-26 22:56] LABS: Urine Bacteria None Seen /hpf (None Seen)
[2024-09-26 23:43] LABS: Urine Blood Negative /uL (Negative); Urine Clarity Clear (Clear); Urine Color Yellow (Yellow); Urine Protein, UAD Negative (Negative); Urine Squamous Epithelial Cell None Seen /hpf (<5); Urine Urobilinogen Normal (Negative); Urine WBC 1 /HPF (0-3); Urine pH 6.5 (5.0-9.0)
[2024-09-26 23:44] LABS: Urine Specific Gravity > 1.050 (1.001-1.035)
[2024-09-27] MEDS ORDERED: ACETAMINOPHEN 325 MG TAB PO PRN (01:15)
[2024-09-27] MEDS: SODIUM CHLORIDE 0.9% 1,000 ML IV SCH (01:15)
--- NOTE | 2024-09-27 01:54 | DVHHPRES ---
History of Present Illness Resident Creating Document: JUSTO STEWART RESIDENT History of Present Illness Dusty Staton is a 33-year-old male with a PMH of diverticulitis presented to the ED with the chief complaints of unresolved diffuse lower abdominal pain. Patient recently discharged in this facility last week for acute diverticulitis, discharged home and he has been on home antibiotics and on liquid diet but patient reported the pain is still there but today evening the pain is getting worse, more in the LLQ felt hard which prompted him to visit ED again. On my assessment patient denies fever, nausea, vomiting, chest pain, and other acute associated symptoms. PMH: Recurrent Diverticulitis PSH: Denies Family history: Not significant Social history: Lives with family. Smokes marijuana everyday, occasional alcohol but denies other drug abuse Home medications: None allergies: No known allergies Review of Systems Constitutional: Yes: Fever Eyes: No: Pain, Vision change, Conjunctivae inflammation, Eyelid inflammation, Other, Redness ENT: No: Ear pain, Ear discharge, Nose pain, Nose discharge, Nose congestion, Mouth pain, Mouth swelling, Throat pain, Throat swelling, Other Respiratory: No: Cough, Dry, Shortness of breath, SOB with excertion, Wheezing, Hemoptysis, Pleuritic Pain, Sputum, Wheezing, Other Cardiovascular: No: Chest Pain, Palpitations, Orthopnea, Paroxysmal Noc. Dyspnea, Edema, Lt Headedness, Other Gastrointestinal: Abdominal Pain, Constipation Genitourinary: No Dysuria, No Frequency, No Incontinence, No Hematuria, No Retention, No Other Musculoskeletal: No: other, neck pain, shoulder pain, arm pain, back pain, hand pain, leg pain, foot pain Skin: No: Rash, Lesions, Jaundice, Bruising, Other Neurological: No: Weakness, Numbness, Incoordination, Change in speech, Confusion, Seizures, Other Allergies: Coded Allergies: NO KNOWN ALLERGIES (Unverified , 10/25/18) Medications Current Medications Medications Dose Ordered Sig/Yared Route Start Time Stop Time Status Last Admin Dose Admin Sodium Chloride 10 ml Q8HR IV 09/27/24 06:00 Sodium Chloride 1,000 ml @ 120 mls/hr Q8H20M IV 09/27/24 01:15 Acetaminophen 650 mg Q6HP PRN PO 09/27/24 01:15 Morphine Sulfate 2 mg Q4HPRN PRN IV 09/27/24 01:15 Pantoprazole Sodium 40 mg DAILY IV 09/27/24 10:00 UNV Ciprofloxacin 200 ml @ 200 mls/hr Q8HR IV 09/27/24 06:00 UNV Metronidazole 100 ml @ 100 mls/hr Q8HR IV 09/27/24 06:00 UNV Exam Vital Signs Vital Signs Date Time Temp Pulse Resp B/P (MAP) Pulse Ox O2 Delivery O2 Flow Rate FiO2 09/26/24 21:58 98.5 121 18 125/77 (93) 95 Exam General Appearance: Alert, Oriented X3, Cooperative, moderate distress HEENT: Atraumatic, Mucous membranes moist/pink Respiratory: Clear to auscultation, Normal air movement, No added sounds Cardiovascular: Regular rate, Normal S1, Normal S2, No murmurs Abdominal: Lower abdominal mostly LLQ tenderness, hard to palpation. No dist ention Extremities: No edema, Normal pulses, No tenderness/swelling Skin: No Significant rash, except past surgical scars Neuro: Normal speech, sensorimotor deficits none Psych/Mental Status: Mental status NL, Mood NL Nurse was there as sharperone during examination Labs/Xrays Labs Test 09/26/24 23:35 09/26/24 22:30 09/26/24 21:40 Range/Units Lactic Acid Level 0.8 0.4-2.0 mmol/L Urine Color Yellow Yellow Urine Clarity Clear Clear Urine pH 6.5 5.0-9.0 Urine Specific [place] > 1.050 H 1.001-1.035 Urine Protein Negative Negative Urine Ketones Trace Negative Urine Blood Negative Negative /uL Urine Nitrite Negative Negative Urine Bilirubin Negative Negative Urine Urobilinogen Normal Negative mg/dL Urine Leukocyte Esterase Negative Negative /uL Urine RBC 1 0 - 3 /hpf Urine Microscopic WBC 1 0-3 /HPF Urine Squamous Epithelial Cells None seen <5 /hpf Urine Bacteria None seen None Seen /hpf Urine Glucose Normal Normal mg/dL White Blood Count 15.8 #H 4.4-10.8 10^3/uL Red Blood Count 5.53 4.5-5.90 10^6/uL Hemoglobin 14.7 13.5-17.5 g/dL Hematocrit 45.3 41.0-53.0 % Mean Corpuscular Volume 82.0 80.0-100.0 fL Mean Corpuscular Hemoglobin 26.7 L 28.0-32.0 pg Mean Corpuscular Hemoglobin Concent 32.5 32.0-36.0 g/dL Red Cell Distribution Width 12.9 11.8-14.3 % Platelet Count 348 140-450 10^3/uL Mean Platelet Volume 8.6 6.9-10.8 fL Neutrophils (%) (Auto) 79.3 37.0-80.0 % Lymphocytes (%) (Auto) 12.7 10.0-50.0 % Monocytes (%) (Auto) 7.4 0.0-12.0 % Eosinophils (%) (Auto) 0.2 0.0-7.0 % Basophils (%) (Auto) 0.4 0.0-2.0 % Neutrophils # (Auto) 12.6 H 1.6-8.6 10 ^3/uL Lymphocytes # (Auto) 2.0 0.4-5.4 10 ^3/uL Monocytes # (Auto) 1.2 0-1.3 10 ^3/uL Eosinophils # (Auto) 0 0-0.8 10 ^3/uL Basophils # (Auto) 0.1 0-0.2 10 ^3/uL Nucleated Red Blood Cells 0.1 % Sodium Level 139 136-145 mmol/L Potassium Level 3.6 3.5-5.1 mmol/L Chloride Level 102 98-107 mmol/L Carbon Dioxide Level 28 20-31 mmol/L Anion Gap 9 5-15 Blood Urea Nitrogen 7 L 9-23 mg/dL Creatinine 0.78 0.700-1.30 mg/dL Glomerular Filtration Rate Calc 122 >90 mL/min BUN/Creatinine Ratio 9.0 L 10.0-20.0 Serum Glucose 106 74-106 mg/dL Calcium Level 10.3 8.7-10.4 mg/dL Total Bilirubin 0.5 0.2-1.0 mg/dL Aspartate Amino Transferase (AST) 22 13-40 U/L Alanine Aminotransferase (ALT) 26 7-40 U/L Alkaline Phosphatase 87 46-116 U/L Total Protein 7.9 5.7-8.2 g/dL Albumin 5.2 H 3.2-4.8 g/dL Lipase 30 12-53 U/L Assessment/Plan Assessment/Plan # Acute descending left & sigmoid colon diverticulitis # ? sepsis # Rule out abscess # Rule out peritonitis -evident on CT abdominal pelvis,Diverticulitis in the descending left colon and sigmoid colon with a large inflammatory mass noted extending in the mid abdomen for 8.2 by 6.8 cm. There are small bubbles of air in the soft tissues this may be free air findings consistent with diverticulitis area measures 8.2 by 6.8 cm. -currently giving cipro and Flagyl -NPO and give IVF -pain management as needed -consider surgical consult if needed -ordered urine and blood culture # marijuana abuse disorder -counseled regarding cessation for more than 17 minutes PUD PPX: Protonix VTE PPX: Patient ambulatory Diet: NPO Goals of care discussed with the patient for more than 29 minutes: Full code status Case discussed with Dr. Soler, patient and nurse. Plan discussed with: Patient My Orders Orders - JUSTO STEWART RESIDENT Procedure Category Date Status Time Admit ADMIT 09/27/24 Transmitted 01:09 Allergies CHAPINCITO 09/27/24 In Process 01:09 Sodium Chloride Lock PHA 09/27/24 In Process (Saline Lock Ns) 06:00 Sodium Chloride 0.9% PHA 09/27/24 In Process 01:15 Complete Blood Count LAB 09/27/24 Logged 04:00 Comprehensive LAB 09/27/24 Logged Metabolic Panel 04:00 Npo (Nothing By DIET 09/27/24 Transmitted Mouth) Diet Breakfast Condition: Stable CHAPINCITO 09/27/24 In Process 01:09 Acetaminophen Tablet PHA 09/27/24 In Process (Tylenol Tablet) 01:15 Morphine Sulfate PHA 09/27/24 In Process Injection 01:15 Blood Alcohol LAB 09/27/24 Logged 01:43 Drug Screen LAB 09/27/24 Logged 01:43 Lactic Acid W/ Reflex LAB 09/27/24 Logged Order 01:43 PTPTT LAB 09/27/24 Logged 01:43 Urinalysis LAB 09/27/24 Logged 01:43 Pantoprazole PHA 09/27/24 Logged (Protonix) 10:00 Ciprofloxacin PHA 09/27/24 Logged 400mg/200ml (Cipro Iv) 06:00 Metronidazole PHA 09/27/24 Logged 500mg/100ml (Flagyl 06:00 Urine Bacterial PHILIP 09/27/24 Transmitted Culture 01:49 Date of Service: Sep 27, 2024 Billing Provider: KYRA SOLER MD Common Visit Codes: [id number] INP/OBS CARE (LOW) JUSTO STEWART RESIDENT Sep 27, 2024 01:54 KYRA SOLER MD Sep 28, 2024 08:44
[2024-09-27 02:20] LABS: INR 1.19 (0.9-1.15); Prothrombin Time 12.4 sec (9.3-11.8)
[2024-09-27] MEDS: ONDANSETRON HCL 4 MG/2 ML VIAL IV ONE (02:24)
[2024-09-27] MEDS: MORPHINE SULFATE 4 MG/ML SYR/VIAL IV ONE (02:25)
[2024-09-27 02:32] VITALS: PULSE 113; RESP 18; O2SAT 97
[2024-09-27] MEDS: PIPERACILLIN-TAZO 4.5GM 100 ML IV ONE (02:41)
[2024-09-27 02:58] LABS: Opiate Scree,Urine Pos (NEGATIVE); Phencyclidine Screen, Urine Neg (NEGATIVE)
[2024-09-27 03:15] LABS: Amphetamine Screen, Urine Neg (NEGATIVE); Barbiturate Scree,Urine Neg (NEGATIVE); Benzodiazephine Screen, Urine Neg (NEGATIVE); Cannabinoid Screen, Urine Pos (NEGATIVE); Cocaine Screen, Urine Neg (NEGATIVE)
[2024-09-27 04:31] VITALS: BP 109/63; PULSE 96; RESP 20; TEMP 98.2; O2SAT 95
[2024-09-27] MEDS: MORPHINE SULFATE INJ 2 MG/ml SYRG IV PRN (05:28)
[2024-09-27] MEDS: SODIUM CHLOR 0.9% PF (SALINE LOCK) 10ML VIAL/SYR IV SCH (05:28)
[2024-09-27] MEDS: metroNIDAZOLE 500MG/100ML 100 ML IV SCH (05:37)
[2024-09-27 06:10] LABS: Eosinophils # (auto) 0 10 ^3/uL (0-0.8); Mean Corpuscular Hgb Conc. 31.9 g/dL (32.0-36.0); Red Cell Distribution Width 13.1 % (11.8-14.3)
[2024-09-27 06:12] LABS: Basophils # (auto) 0.1 10 ^3/uL (0-0.2); Basophils % (auto) 0.6 % (0.0-2.0); Eosinophils % (auto) 0.1 % (0.0-7.0); Hematocrit 44.2 % (41.0-53.0); Hemoglobin 14.1 g/dL (13.5-17.5); Lymphocytes # (auto) 2.2 10 ^3/uL (0.4-5.4); Lymphocytes % (auto) 16.5 % (10.0-50.0); Mean Corpuscular Hemoglobin 26.5 pg (28.0-32.0); Monocytes % (auto) 7.4 % (0.0-12.0); Neutrophils # (auto) 9.9 10 ^3/uL (1.6-8.6); Neutrophils % (auto) 75.4 % (37.0-80.0); Platelet Count (auto) 293 10^3/uL (140-450); Red Blood Cells 5.33 10^6/uL (4.5-5.90); White Blood Cell 13.1 10^3/uL (4.4-10.8)
[2024-09-27] MEDS: CIPROFLOXACIN 400MG/200ML 200 ML IV SCH (06:22)
[2024-09-27 06:32] LABS: Alanine Aminotransferase 22 U/L (7-40); Alkaline Phosphatase 79 U/L (46-116); Anion Gap 11 (5-15); Aspartate Aminotransferase 16 U/L (13-40); Calcium 10.1 mg/dL (8.7-10.4); Carbon Dioxide 27 mmol/L (20-31); Chloride 101 mmol/L (98-107); Glucose 97 mg/dL (74-106); Potassium 3.6 mmol/L (3.5-5.1); Sodium 139 mmol/L (136-145)
[2024-09-27 06:33] LABS: Bilirubin, Total 0.7 mg/dL (0.2-1.0); Total Protein 7.5 g/dL (5.7-8.2)
[2024-09-27 06:36] LABS: Albumin 4.9 g/dL (3.2-4.8); Blood Urea Nitrogen 6 mg/dL (9-23)
--- NOTE | 2024-09-27 07:09 | DVHPNRES ---
Progress Note Date Seen: Sep 27, 2024 Resident Creating Document: PARAG EASLEY RESIDENT Medical Necessity Reason Pt with a Central, PICC or Fol: No Subjective Review of Systems Patient is a 33-year-old male with past medical history of diverticulosis, who comes in due to abdominal pain. According to the patient, since yesterday he has been having increasing abdominal pain which has progressively worsened until he felt like he could not tolerated which is what prompted this visit to the hospital. Of note, patient was recently admitted to the [facility] and treated for diverticulitis with antibiotics, which patient notes that he completed the course and adhere to the dietary recommendations given to him discharge. Patient notes moving makes his pain worse, pain is relieved by morphine. Per patient, 2 years ago he completed a colonoscopy when he was told he has diverticulosis with diverticulitis at the time in 2019. After that patient had another episode of diverticulitis in 2022, after which he was told he might need elective colectomy in the outpatient, however, patient notes that he has been hesitant in intimidated by the procedure. Patient notes that the current pain he is feeling a similar to the pain he felt when he had an episode of diverticulitis with abscess in 2022 which was subsequently drained. CT abdomen pelvis showed diverticulitis in the descending left colon and sigmoid colon with a large inflammatory mass noted extending in the midabdomen 8.2 x 6.8 cm. Small bubbles of air in the soft tissues this may be free air findings consistent with diverticulitis area measures 8.2 x 6.8 cm., this will be patient's 3rd episode of diverticulitis in the last 5 years. Past surgical history: Denies Home medications: None Past Hospitalization: Discharged on 09/21/2024 sigmoid diverticulitis Social & Personal history: Patient lives with and kids. Denies smoking. Uses alcohol occasionally. Uses marijuana daily, denies using any other drugs. Allergies: None Patient seen and examined at bedside. Patient is alert and oriented to time, place person and responding to all questions. General: Fatigue Eyes: No Pain, No Vision change, No Conjunctivae inflammation, No Eyelid inflammation, No Other, No Redness ENT: No Ear pain, No Ear discharge, No Nose pain, No Nose discharge, No Nose congestion, No Mouth pain, No Mouth swelling, No Throat pain, No Throat swelling, No Other Cardiovascular: No Chest Pain, No Palpitations, No Orthopnea, No Paroxysmal No Dyspnea, No Edema, No Lt Headedness, No Other Respiratory: No Cough, No Dry, No Shortness of breath, No SOB with exertion, No Wheezing, No Hemoptysis, No Pleuritic Pain, No Sputum, No Other Gastrointestinal: Nausea, No Vomiting, Abdominal Pain, No Diarrhea, C onstipation, No Melena, No Hematochezia, No Other Genitourinary: No Dysuria, No Frequency, No Incontinence, No Hematuria, No Retention, No Other Musculoskeletal: No other, No neck pain, No shoulder pain, No arm pain, No back pain, No hand pain, No leg pain, No foot pain Skin: No Rash, No Lesions, No Jaundice, No Bruising, No Other Objective vital signs Vital Sign Date Time Temp Pulse Resp B/P (MAP) Pulse Ox O2 Delivery O2 Flow Rate FiO2 09/27/24 05:58 70 18 118/70 09/27/24 04:31 98.2 95 98.2 09/27/24 02:32 Room Air* 0 21 Total Intake and Output 09/26/24 09/26/24 09/27/24 15:00 23:00 07:00 Intake Total 0 ml Balance 0 ml medications Current Medications Medications Dose Ordered Sig/Yared Route Start Time Stop Time Status Last Admin Dose Admin Sodium Chloride 10 ml Q8HR IV 09/27/24 06:00 09/27/24 05:28 10 ML Sodium Chloride 1,000 ml @ 120 mls/hr Q8H20M IV 09/27/24 01:15 Acetaminophen 650 mg Q6HP PRN PO 09/27/24 01:15 Morphine Sulfate 2 mg Q4HPRN PRN IV 09/27/24 01:15 09/27/24 05:28 2 MG Pantoprazole Sodium 40 mg DAILY IV 09/27/24 10:00 Ciprofloxacin 200 ml @ 200 mls/hr Q8HR IV 09/27/24 06:00 09/27/24 06:22 200 MLS/HR Metronidazole 100 ml @ 100 mls/hr Q8HR IV 09/27/24 06:00 09/27/24 05:37 100 MLS/HR Examination General Appearance: Cooperative. Well developed. Well nourished. NAD Head Exam: Normal inspection Neck Exam: Normal inspection. Non-tender. Normal alignment Pulmonary/Respiratory: Chest non-tender. Clear bilateral breath sounds, no crackles, no wheezing. Cardiovascular/Chest: Regular rate and rhythm. No murmurs. No JVD. Peripheral Pulses: 2+ Radial (R). 2+ Radial (L). 2+ Pedal (R). 2+ Pedal (L) Abdominal Exam: Normal bowel sounds. Soft. Generalized abdominal tenderness to palpation, no visible veins, Nontender. No hepatospenomegaly. No masses Ankle Exam: Negative ankle edema Lower extremities: Negative lower extremity edema Neuro/Mental Status: A&O x4. Coherent. Thoughts/Psych: Normal thought pattern. Appropriate mood and affect. Good judgement and insight Skin Exam: Normal inspection. Normal color. Warm. Dry laboratory and microbiology Laboratory Tests 09/27/24 05:05 Test 09/27/24 05:05 Range/Units Serum Glucose 97 74-106 mg/dL Labs and/or images reviewed: Labs reviewed by me, Image(s) reviewed by me Problem List/Assessment/Plan Problem List/Assessment/Plan Sepsis due to diverticulitis Diverticulitis complicated with probable abscess Acute intractable abdominal pain due to above - CT abdomen pelvis: Diverticulitis in the descending left colon and sigmoid colon with a large inflammatory mass noted extending in the mid abdomen for 8.2 by 6.8 cm. There are small bubbles of air in the soft tissues this may be free air findings consistent with diverticulitis area measures 8.2 by 6.8 cm. - serum lipase 30 - IV NS 2 L bolus, IV NS at 120 cc/hour - IV Zosyn, IV metronidazole - acetaminophen 650 mg as needed - surgery consulted Marijuana dependence Obesity - counseled PUD prophylaxis: protonix 40mg Goals of care: Full code, discussed for >16 minutes on 09/27/2024 Plan discussed with patient Plan discussed with Dr. Stewart Plan discussed with: Patient, Other (RN) Date of Service: Sep 27, 2024 Billing Provider: SHANTELLE STEWART MD Common Visit Codes: [id number] INP/OBS CARE(HIGH) PARAG EASLEY Sep 27, 2024 07:09 SHANTELLE STEWART MD Oct 02, 2024 15:52
[2024-09-27] MEDS: SODIUM CHLORIDE 0.9% 1,000 ML IV ONE (08:57)
[2024-09-27] MEDS: PIPERACILLIN-TAZOB 3.375GM 100 ML IV ONE (09:46)
[2024-09-27] MEDS: PANTOPRAZOLE 40 MG/10 ML VIAL INJ IV SCH (10:05)
[2024-09-27] MEDS: PIPERACILLIN-TAZOB 3.375GM 100 ML IV SCH (12:03)
[2024-09-27 13:00] VITALS: BP 109/56; PULSE 82; RESP 18; TEMP 99; O2SAT 99
[2024-09-27 14:30] LABS: Hepatitis B Surface Antigen Negative (Negative); Hepatitis C Antibody Negative (Negative)
[2024-09-27 16:55] VITALS: BP 120/67; PULSE 64; RESP 16; TEMP 98.4; O2SAT 100
[2024-09-27 21:00] VITALS: BP 130/72; PULSE 95; TEMP 98.1; O2SAT 99
[2024-09-28] VITALS (7 sets, daily range): BP systolic 110–124; BP diastolic 60–78; PULSE 76–95; RESP 16–18; TEMP 98.1–99.3; O2SAT 98–99
[2024-09-28 05:15] LABS: Eosinophils # (auto) 0 10 ^3/uL (0-0.8); Eosinophils % (auto) 0.3 % (0.0-7.0); Hemoglobin 14.5 g/dL (13.5-17.5); Monocytes # (auto) 1.2 10 ^3/uL (0-1.3)
[2024-09-28 05:16] LABS: Anion Gap 13 (5-15); Calcium 10.2 mg/dL (8.7-10.4); Carbon Dioxide 25 mmol/L (20-31); Chloride 99 mmol/L (98-107); Potassium 3.7 mmol/L (3.5-5.1); Sodium 137 mmol/L (136-145)
[2024-09-28 05:18] LABS: Basophils # (auto) 0.1 10 ^3/uL (0-0.2); Basophils % (auto) 0.4 % (0.0-2.0); Hematocrit 44.2 % (41.0-53.0); Lymphocytes # (auto) 2.2 10 ^3/uL (0.4-5.4); Lymphocytes % (auto) 15.5 % (10.0-50.0); Mean Corpuscular Hemoglobin 27.1 pg (28.0-32.0); Mean Corpuscular Hgb Conc. 32.7 g/dL (32.0-36.0); Mean Corpuscular Volume 82.8 fL (80.0-100.0); Monocytes % (auto) 8.2 % (0.0-12.0); Neutrophils # (auto) 10.9 10 ^3/uL (1.6-8.6); Neutrophils % (auto) 75.6 % (37.0-80.0); Platelet Count (auto) 309 10^3/uL (140-450); Red Blood Cells 5.33 10^6/uL (4.5-5.90); Red Cell Distribution Width 12.8 % (11.8-14.3); White Blood Cell 14.4 10^3/uL (4.4-10.8)
[2024-09-28 05:22] LABS: BUN/Creatinine Ratio 8.8 (10.0-20.0); Glucose 97 mg/dL (74-106)
[2024-09-28 05:37] LABS: Blood Urea Nitrogen 7 mg/dL (9-23)
[2024-09-28] MEDS: KETOROLAC TROMETH 30 MG/ML 1ML VIAL IV PRN (09:33)
--- NOTE | 2024-09-28 10:18 | DVHPNRES ---
Progress Note Date Seen: Sep 28, 2024 Resident Creating Document: PARAG EASLEY RESIDENT Medical Necessity Reason Pt with a Central, PICC or Fol: No Subjective Review of Systems Patient is a 33-year-old male with past medical history of diverticulosis, who comes in due to abdominal pain. According to the patient, since yesterday he has been having increasing abdominal pain which has progressively worsened until he felt like he could not tolerated which is what prompted this visit to the hospital. Of note, patient was recently admitted to the [facility] and treated for diverticulitis with antibiotics, which patient notes that he completed the course and adhere to the dietary recommendations given to him discharge. Patient notes moving makes his pain worse, pain is relieved by morphine. Per patient, 2 years ago he completed a colonoscopy when he was told he has diverticulosis with diverticulitis at the time in 2019. After that patient had another episode of diverticulitis in 2022, after which he was told he might need elective colectomy in the outpatient, however, patient notes that he has been hesitant in intimidated by the procedure. Patient notes that the current pain he is feeling a similar to the pain he felt when he had an episode of diverticulitis with abscess in 2022 which was subsequently drained. CT abdomen pelvis showed diverticulitis in the descending left colon and sigmoid colon with a large inflammatory mass noted extending in the midabdomen 8.2 x 6.8 cm. Small bubbles of air in the soft tissues this may be free air findings consistent with diverticulitis area measures 8.2 x 6.8 cm., this will be patient's 3rd episode of diverticulitis in the last 5 years. Past surgical history: Denies Home medications: None Past Hospitalization: Discharged on 09/21/2024 sigmoid diverticulitis Social & Personal history: Patient lives with and kids. Denies smoking. Uses alcohol occasionally. Uses marijuana daily, denies using any other drugs. Allergies: None Patient seen and examined at bedside. Patient is alert and oriented to time, place person and responding to all questions. Patient reports improved pain yesterday and is able to ambulate much better. Objective vital signs Vital Sign Date Time Temp Pulse Resp B/P (MAP) Pulse Ox O2 Delivery O2 Flow Rate FiO2 09/28/24 09:34 95 18 117/78 (91) 09/28/24 09:00 99.3 98 99.3 09/28/24 08:05 Room Air* 0 21 Total Intake and Output 09/27/24 09/27/24 09/28/24 15:00 23:00 07:00 Intake Total 1440 ml 250 ml 200 ml Balance 1440 ml 250 ml 200 ml medications Current Medications Medications Dose Ordered Sig/Yared Route Start Time Stop Time Status Last Admin Dose Admin Sodium Chloride 10 ml Q8HR IV 09/27/24 06:00 09/28/24 06:16 10 ML Sodium Chloride 1,000 ml @ 120 mls/hr Q8H20M IV 09/27/24 01:15 09/27/24 17:13 120 MLS/HR Acetaminophen 650 mg Q6HP PRN PO 09/27/24 01:15 Morphine Sulfate 2 mg Q4HPRN PRN IV 09/27/24 01:15 09/28/24 05:30 2 MG Pantoprazole Sodium 40 mg DAILY IV 09/27/24 10:00 09/28/24 09:32 40 MG Metronidazole 100 ml @ 100 mls/hr Q8HR IV 09/27/24 06:00 09/28/24 05:21 100 MLS/HR Piperacillin Sod/ Tazobactam Sod 100 ml @ 25 mls/hr Q6HR IV 09/27/24 12:00 09/28/24 06:16 25 MLS/HR Ketorolac Tromethamine 15 mg [id number] PRN IV 09/28/24 07:15 10/03/24 07:14 09/28/24 09:33 15 MG Examination General Appearance: Cooperative. Well developed. Well nourished. NAD Head Exam: Normal inspection Neck Exam: Normal inspection. Non-tender. Normal alignment Pulmonary/Respiratory: Chest non-tender. Clear bilateral breath sounds, no crackles, no wheezing. Cardiovascular/Chest: Regular rate and rhythm. No murmurs. No JVD. Peripheral Pulses: 2+ Radial (R). 2+ Radial (L). 2+ Pedal (R). 2+ Pedal (L) Abdominal Exam: Normal bowel sounds. Soft. Generalized abdominal tenderness to palpation, no visible veins, Nontender. No hepatospenomegaly. No masses Ankle Exam: Negative ankle edema Lower extremities: Negative lower extremity edema Neuro/Mental Status: A&O x4. Coherent. Thoughts/Psych: Normal thought pattern. Appropriate mood and affect. Good judgement and insight Skin Exam: Normal inspection. Normal color. Warm. Dry laboratory and microbiology Laboratory Tests 09/28/24 04:44 Test 09/28/24 04:44 Range/Units Serum Glucose 97 74-106 mg/dL Microbiology Date/Time Source Procedure Growth Status 09/27/24 06:30 Nose MRSA Screen - Final Complete 09/26/24 23:35 Blood Blood Culture - Preliminary NO GROWTH AFTER 24 HOURS OF INCUBATION. Resulted Labs and/or images reviewed: Labs reviewed by me, Image(s) reviewed by me Problem List/Assessment/Plan Problem List/Assessment/Plan Sepsis due to diverticulitis Diverticulitis complicated with probable abscess Acute intractable abdominal pain due to above - CT abdomen pelvis: Diverticulitis in the descending left colon and sigmoid colon with a large inflammatory mass noted extending in the mid abdomen for 8.2 by 6.8 cm. There are small bubbles of air in the soft tissues this may be free air findings consistent with diverticulitis area measures 8.2 by 6.8 cm. - serum lipase 30 - IV NS 2 L bolus, currently on IV D5 with NS at 100 cc/hour - IV Zosyn, IV metronidazole - acetaminophen 650 mg as needed - surgery consulted Marijuana dependence Obesity - counseled PUD prophylaxis: protonix 40mg Goals of care: Full code, discussed for >16 minutes on 09/27/2024 Plan discussed with patient Plan discussed with Dr. Stewart Plan discussed with: Patient, Other (RN) My Orders My Orders Orders - PARAG EASLEY RESIDENT Procedure Category Date Status Time Ketorolac Injection PHA 09/28/24 In Process (Toradol Injection) 07:15 Date of Service: Sep 28, 2024 Billing Provider: SHANTELLE STEWART MD Common Visit Codes: [id number] INP/OBS CARE(HIGH) PARAG EASLEY Sep 28, 2024 10:18 SHANTELLE STEWART MD Oct 02, 2024 16:02
[2024-09-28] MEDS: D5W/SOD CHLO 0.9% 1,000 ML IV SCH (14:45)
--- NOTE | 2024-09-28 16:43 | DVHINCON2 ---
Date of service: Sep 28, 2024 Family History: Patient reports no known family medical history. Allergies: Coded Allergies: NO KNOWN ALLERGIES (Unverified , 10/25/18) Home Meds Active Scripts Levofloxacin Hemihydrate (LEVAQUIN 500 MG) 500 Mg Tab, 1 TAB PO DAILY for 7 Days, #7 TAB Prov:SHORTY TANG NP 04/19/23 Ciprofloxacin Hcl (Cipro) 500 Mg Tab, 500 MG PO BID for 7 Days, #14 TAB Prov:CHAYA CALDERÓN MD 05/04/22 Current Medications Current Medications Medications (Trade) Dose Ordered Sig/Yared Route PRN Reason Start Time Stop Time Status Last Admin Ketorolac Tromethamine (Toradol Injection) 15 mg [id number] PRN IV moderate pain 09/28/24 07:15 10/03/24 07:14 09/28/24 09:33 Dextrose/Sodium Chloride 1,000 ml @ 100 mls/hr Q10H IV 09/28/24 14:45 UNV Vital Signs Vital Signs Date Time Temp Pulse Resp B/P (MAP) Pulse Ox O2 Delivery O2 Flow Rate FiO2 09/28/24 13:53 93 18 130/82 09/28/24 13:00 98.4 99 98.4 09/28/24 08:05 Room Air* 0 21 Labs/Diagnostic Data Labs Test 09/28/24 04:44 09/27/24 05:05 09/26/24 23:35 09/26/24 22:30 Range/Units White Blood Count 14.4 H 4.4-10.8 10^3/uL Red Blood Count 5.33 4.5-5.90 10^6/uL Hemoglobin 14.5 13.5-17.5 g/dL Hematocrit 44.2 41.0-53.0 % Mean Corpuscular Volume 82.8 80.0-100.0 fL Mean Corpuscular Hemoglobin 27.1 L 28.0-32.0 pg Mean Corpuscular Hemoglobin Concent 32.7 32.0-36.0 g/dL Red Cell Distribution Width 12.8 11.8-14.3 % Platelet Count 309 140-450 10^3/uL Mean Platelet Volume 8.8 6.9-10.8 fL Neutrophils (%) (Auto) 75.6 37.0-80.0 % Lymphocytes (%) (Auto) 15.5 10.0-50.0 % Monocytes (%) (Auto) 8.2 0.0-12.0 % Eosinophils (%) (Auto) 0.3 0.0-7.0 % Basophils (%) (Auto) 0.4 0.0-2.0 % Neutrophils # (Auto) 10.9 H 1.6-8.6 10 ^3/uL Lymphocytes # (Auto) 2.2 0.4-5.4 10 ^3/uL Monocytes # (Auto) 1.2 0-1.3 10 ^3/uL Eosinophils # (Auto) 0 0-0.8 10 ^3/uL Basophils # (Auto) 0.1 0-0.2 10 ^3/uL Nucleated Red Blood Cells 0.0 % Sodium Level 137 136-145 mmol/L Potassium Level 3.7 3.5-5.1 mmol/L Chloride Level 99 98-107 mmol/L Carbon Dioxide Level 25 20-31 mmol/L Anion Gap 13 5-15 Blood Urea Nitrogen 7 L 9-23 mg/dL Creatinine 0.80 0.700-1.30 mg/dL Glomerular Filtration Rate Calc 121 >90 mL/min BUN/Creatinine Ratio 8.8 L 10.0-20.0 Serum Glucose 97 74-106 mg/dL Calcium Level 10.2 8.7-10.4 mg/dL Total Bilirubin 0.7 0.2-1.0 mg/dL Aspartate Amino Transferase (AST) 16 13-40 U/L Alanine Aminotransferase (ALT) 22 7-40 U/L Alkaline Phosphatase 79 46-116 U/L Total Protein 7.5 5.7-8.2 g/dL Albumin 4.9 H 3.2-4.8 g/dL Hepatitis B Surface Antigen Negative Negative Hepatitis C Antibody Negative Negative Lactic Acid Level 0.8 0.4-2.0 mmol/L Urine Color Yellow Yellow Urine Clarity Clear Clear Urine pH 6.5 5.0-9.0 Urine Specific [place] > 1.050 H 1.001-1.035 Urine Protein Negative Negative Urine Ketones Trace Negative Urine Blood Negative Negative /uL Urine Nitrite Negative Negative Urine Bilirubin Negative Negative Urine Urobilinogen Normal Negative mg/dL Urine Leukocyte Esterase Negative Negative /uL Urine RBC 1 0 - 3 /hpf Urine Microscopic WBC 1 0-3 /HPF Urine Squamous Epithelial Cells None seen <5 /hpf Urine Bacteria None seen None Seen /hpf Urine Glucose Normal Normal mg/dL Urine Opiates Screen Pos NEGATIVE Urine Fentanyl Screen Neg NEGATIVE Urine Barbiturates Screen Neg NEGATIVE Urine Phencyclidine Screen Neg NEGATIVE Urine Amphetamines Screen Neg NEGATIVE Urine Benzodiazepines Screen Neg NEGATIVE Urine Cocaine Screen Neg NEGATIVE Urine Cannabinoids Screen Pos NEGATIVE Test 09/26/24 21:40 Range/Units Prothrombin Time 12.4 H 9.3-11.8 sec Prothrombin Time INR 1.19 H 0.9-1.15 Activated Partial Thromboplast Time 33.0 24.5-34.5 SEC Lipase 30 12-53 U/L Plasma/Serum Blood Alcohol < 3.0 <10 mg/dL Microbiology Date/Time Source Procedure Growth Status 09/27/24 06:30 Nose MRSA Screen - Final Complete 09/26/24 23:35 Blood Blood Culture - Preliminary NO GROWTH AFTER 24 HOURS OF INCUBATION. Resulted 09/26/24 22:30 Voided Urine Urine Culture - Preliminary Resulted Assessment [id number] AFEBRILE VSS ABD SOFT TENDER LLQ BUT LESS BM + ABD SOFT TENDER LLQ CT SCAN SEVERE DIVERTICULITIS POSSIBLE CONTAINED PERFORATION CLOSE OBSERVATION KUB AM REPEAT CT SCAN 24 TO 48 HRS TO DETERMINE THE NEED FOR SURGERY Plan discussed with: Patient SANDRA WHITT MD Sep 28, 2024 16:43
[2024-09-29] VITALS (7 sets, daily range): BP systolic 105–125; BP diastolic 63–81; PULSE 62–92; RESP 14–18; TEMP 97.7–98.5; O2SAT 96–100
--- NOTE | 2024-09-29 06:23 | DVHPNRES ---
Progress Note Date Seen: Sep 29, 2024 Resident Creating Document: SIERRA FRIED RESIDENT Medical Necessity Reason Pt with a Central, PICC or Fol: No Subjective Review of Systems Patient is a 33-year-old male patient who presents to the ED with chief complaint of umbilical and left lower quadrant constant, progressive and oppressive abdominal pain which started one day before his admission. Patient reports recent admission to hospital with diagnosis of diverticulitis, he has been compliant with diet and p.o. antibiotics since discharge, but pain got progressively worse (intensity 9/10) prompting his visit to the ED. Denies any other associated symptoms Past medical history: Sigmoid Diverticulosis with multiple admissions due to diverticulitis, last admission on 09/21/2024 Past surgical history: 2021 Colonoscopy showed diverticulosis, no masses. Social history: Patient lives with and kids. Uses alcohol occasionally. Uses marijuana daily. Denies current tobacco, alcohol and other drug abuse Allergies: Denies Home medications: Denies Patient seen and examined at bedside. Patient currently feels much better than when he was admitted, continues NPO. Patient did present scarce bowel movement Objective vital signs Vital Sign Date Time Temp Pulse Resp B/P (MAP) Pulse Ox O2 Delivery O2 Flow Rate FiO2 09/29/24 05:00 97.7 62 17 105/63 (77) 96 97.7 09/28/24 20:00 Room Air* 0 21 Total Intake and Output 09/28/24 09/28/24 09/29/24 15:00 23:00 07:00 Intake Total 585 ml 625 ml 700 ml Balance 585 ml 625 ml 700 ml medications Current Medications Medications Dose Ordered Sig/Yared Route Start Time Stop Time Status Last Admin Dose Admin Sodium Chloride 10 ml Q8HR IV 09/27/24 06:00 09/29/24 05:02 10 ML Acetaminophen 650 mg Q6HP PRN PO 09/27/24 01:15 Morphine Sulfate 2 mg Q4HPRN PRN IV 09/27/24 01:15 09/28/24 20:31 2 MG Pantoprazole Sodium 40 mg DAILY IV 09/27/24 10:00 09/28/24 09:32 40 MG Metronidazole 100 ml @ 100 mls/hr Q8HR IV 09/27/24 06:00 09/29/24 05:02 100 MLS/HR Piperacillin Sod/ Tazobactam Sod 100 ml @ 25 mls/hr Q6HR IV 09/27/24 12:00 09/29/24 05:02 25 MLS/HR Ketorolac Tromethamine 15 mg [id number] PRN IV 09/28/24 07:15 10/03/24 07:14 09/29/24 03:00 15 MG Dextrose/Sodium Chloride 1,000 ml @ 100 mls/hr Q10H IV 09/28/24 14:45 09/29/24 05:04 100 MLS/HR Examination Patient lying in bed, in no acute distress General: Lucid, afebrile, mucosae are moist Cardiovascular: Normal S1 and S2. No murmurs, gallops or rubs Respiratory: Normal ventilation mechanics. Clear lung sounds on auscultation Abdomen: Soft, tenderness on superficial palpation of left lower quadrant and umbilical area, rest of abdomen nontender, no organomegaly, normal bowel sounds. MSK/skin: Mobilizes 4 limbs. Skin is dry and warm Neurological: Oriented in 3 spheres. No motor no sensitive deficits. Pupils are isocoric and reactive laboratory and microbiology Laboratory Tests 09/28/24 04:44 Test 09/28/24 04:44 Range/Units Serum Glucose 97 74-106 mg/dL Microbiology Date/Time Source Procedure Growth Status 09/27/24 06:30 Nose MRSA Screen - Final Complete 09/26/24 23:35 Blood Blood Culture - Preliminary NO GROWTH AFTER 48 HOURS OF INCUBATION. Resulted 09/26/24 22:30 Voided Urine Urine Culture - Preliminary Resulted Problem List/Assessment/Plan Problem List/Assessment/Plan # Sepsis due to diverticulitis Requiring IV fluids, empiric IV antibiotics (Zosyn and metronidazole) and bowel rest # Diverticulitis complicated with probable perforation Requiring IV fluids, empiric IV antibiotics (Zosyn and metronidazole) and bowel rest ux specialist on board: Suspects perforation, indicated KUB which shows no free air. Pending new CT of abdomen and pelvis Completed CT abdomen pelvis: Diverticulitis in the descending left colon and sigmoid colon with a large inflammatory mass noted extending in the mid abdomen for 8.2 by 6.8 cm. There are small bubbles of air in the soft tissues this may be free air findings consistent with diverticulitis area measures 8.2 by 6.8 cm. # Acute intractable abdominal pain due to above Continues NPO # Hypokalemia Replenish # Marijuana dependence Counseled patient on cessation # Obesity Gave advice on healthy lifestyle habits Goals of care discussed with patient for over 18 minutes: Full code status Discussed plan with Dr. Fonseca, patient and nurses: Patient currently under IV fluids, empiric IV antibiotic, and bowel rest. ux specialist on board, pending new imaging to re-evaluate patient for probable surgery. Plan discussed with: Patient, Other (Nurses) Date of Service: Sep 29, 2024 Billing Provider: SHANTELLE STEWART MD Common Visit Codes: [id number] INP/OBS CARE(HIGH) SIERRA FRIED RESIDENT Sep 29, 2024 06:23 SHANTELLE STEWART MD Oct 02, 2024 16:04
[2024-09-29 07:42] LABS: Basophils # (auto) 0 10 ^3/uL (0-0.2); Basophils % (auto) 0.3 % (0.0-2.0); Eosinophils # (auto) 0.1 10 ^3/uL (0-0.8); Eosinophils % (auto) 0.9 % (0.0-7.0); Hematocrit 41.8 % (41.0-53.0); Hemoglobin 13.6 g/dL (13.5-17.5); Lymphocytes # (auto) 1.6 10 ^3/uL (0.4-5.4); Lymphocytes % (auto) 16.7 % (10.0-50.0); Mean Corpuscular Hgb Conc. 32.6 g/dL (32.0-36.0); Mean Corpuscular Volume 82.8 fL (80.0-100.0); Monocytes # (auto) 0.8 10 ^3/uL (0-1.3); Monocytes % (auto) 8.5 % (0.0-12.0); Neutrophils # (auto) 6.9 10 ^3/uL (1.6-8.6); Neutrophils % (auto) 73.6 % (37.0-80.0); Platelet Count (auto) 321 10^3/uL (140-450); Red Blood Cells 5.05 10^6/uL (4.5-5.90); Red Cell Distribution Width 12.9 % (11.8-14.3); White Blood Cell 9.4 10^3/uL (4.4-10.8)
[2024-09-29 07:59] LABS: Anion Gap 12 (5-15); Carbon Dioxide 26 mmol/L (20-31); Chloride 103 mmol/L (98-107); Sodium 141 mmol/L (136-145)
[2024-09-29 08:01] LABS: Calcium 9.3 mg/dL (8.7-10.4)
[2024-09-29 08:05] LABS: BUN/Creatinine Ratio 8.8 (10.0-20.0); Glucose 105 mg/dL (74-106)
[2024-09-29 08:07] LABS: Blood Urea Nitrogen 7 mg/dL (9-23); Potassium 3.1 mmol/L (3.5-5.1)
--- NOTE | 2024-09-29 09:08 | DVHINCON2 ---
DATE OF CONSULTATION: 09/28/2024 HISTORY OF PRESENT ILLNESS: This patient is 33 years old, coming in with left lower quadrant pain, now feeling better. No nausea, vomiting. He did have a bowel movement today. Did not pass any flatus. No hematemesis, melena. No bleeding per rectum. PAST MEDICAL HISTORY: No diabetes, hypertension. PAST SURGICAL HISTORY: No significant surgical history. PHYSICAL EXAMINATION: VITAL SIGNS: Afebrile, stable signs. HEENT: With no evidence of pallor, cyanosis, or jaundice. NECK: Supple, nontender with no thyromegaly, lymphadenopathy. CHEST AND LUNGS: Clear. HEART: Within normal limits. ABDOMEN: Soft, minimally tender. No rebound. EXTREMITIES: Unremarkable. NEUROLOGIC: Intact. CLINICAL IMPRESSION: Sigmoid diverticulitis with a possible contained perforation and abscess formation at this point, he does not have any acute abdomen that would necessitate acute surgical intervention; however, that cannot be ruled out, so he needs close observation, kept n.p.o., intravenous antibiotics and a KUB abdomen in a.m. to rule out free air and/or ongoing progression of the diverticulitis, and if need be, a repeat CT scan of the abdomen and pelvis to determine the need for surgery. MD MAISHA Kennedy/ISIDORO/FLAVIO TID: [id number] RECEIPT: [id number] cc: Trini Wilcox
--- NOTE | 2024-09-29 10:17 | DVH ---
Exam: XY KUB ABDOMEN SINGLE VIEW Indication: diverticulitis Comparison: CT scan of the abdomen and pelvis dated 09/26/2024. Technique: Supine portable AP views of the abdomen were performed. Findings: No abnormal bowel dilatation. Gas is present throughout the colon. No abnormal calcifications overlyi ng the urinary tract. Impression: No evidence of bowel obstruction.
[2024-09-29] MEDS: POTASSIUM CHL 20MEQ/100ML 100 ML IV SCH (12:45)
--- NOTE | 2024-09-29 17:54 | DVHPN2 ---
Progress Note Date Seen: Sep 29, 2024 Medical Necessity Reason Pt with a Central, PICC or Fol: No Objective vital signs Vital Sign Date Time Temp Pulse Resp B/P (MAP) Pulse Ox O2 Delivery O2 Flow Rate FiO2 09/29/24 17:00 98.5 92 18 125/81 (96) 100 98.5 09/29/24 08:00 Room Air* 0 21 Total Intake and Output 09/28/24 09/28/24 09/29/24 15:00 23:00 07:00 Intake Total 585 ml 625 ml 800 ml Balance 585 ml 625 ml 800 ml medications Current Medications Medications Dose Ordered Sig/Yared Route Start Time Stop Time Status Last Admin Dose Admin Sodium Chloride 10 ml Q8HR IV 09/27/24 06:00 09/29/24 13:10 10 ML Acetaminophen 650 mg Q6HP PRN PO 09/27/24 01:15 Morphine Sulfate 2 mg Q4HPRN PRN IV 09/27/24 01:15 09/29/24 09:47 2 MG Pantoprazole Sodium 40 mg DAILY IV 09/27/24 10:00 09/29/24 09:47 40 MG Metronidazole 100 ml @ 100 mls/hr Q8HR IV 09/27/24 06:00 09/29/24 13:09 100 MLS/HR Piperacillin Sod/ Tazobactam Sod 100 ml @ 25 mls/hr Q6HR IV 09/27/24 12:00 09/29/24 13:10 25 MLS/HR Ketorolac Tromethamine 15 mg [id number] PRN IV 09/28/24 07:15 10/03/24 07:14 09/29/24 03:00 15 MG Dextrose/Sodium Chloride 1,000 ml @ 100 mls/hr Q10H IV 09/28/24 14:45 09/29/24 05:04 100 MLS/HR laboratory and microbiology Laboratory Tests 09/29/24 07:00 Test 09/29/24 07:00 Range/Units Serum Glucose 105 74-106 mg/dL Microbiology Date/Time Source Procedure Growth Status 09/27/24 06:30 Nose MRSA Screen - Final Complete 09/26/24 23:35 Blood Blood Culture - Preliminary NO GROWTH AFTER 48 HOURS OF INCUBATION. Resulted 09/26/24 22:30 Voided Urine Urine Culture - Final Complete Problem List/Assessment/Plan Problem List/Assessment/Plan AFEBRILE VSS LLQ PAIN BUT LESS KUB NO FREE AIR REPEAT CT SCAN ABD PELVIS AM NURSE AT BEDSIDE Plan discussed with: Patient Dietary Evaluation Review Comments: 1) If patient remains NPO for more than 7 days, consider TPN to meet at least 75% of estimated needs 2) If GI route is preferred, consider Vital AF @ 50 mL goal rate as tolerated. Goal rate will provide 1,440 kcals, 90g Pro, and 973 mL free H2O per 24 hrs 3) Advance to low fiber diet when medically feasible 4) Continue current plan of care Expected Outcomes/Goals: 1) diet to advance 2) appetite and labs to improve 3) f/u in 3 days SANDRA WHITT MD Sep 29, 2024 17:54
[2024-09-30] VITALS (7 sets, daily range): BP systolic 109–135; BP diastolic 73–87; PULSE 68–84; RESP 12–18; TEMP 98–98.8; O2SAT 96–100
[2024-09-30 07:25] LABS: Basophils # (auto) 0 10 ^3/uL (0-0.2); Basophils % (auto) 0.5 % (0.0-2.0); Eosinophils # (auto) 0.1 10 ^3/uL (0-0.8); Eosinophils % (auto) 0.8 % (0.0-7.0); Hematocrit 38.6 % (41.0-53.0); Hemoglobin 12.6 g/dL (13.5-17.5); Lymphocytes # (auto) 1.6 10 ^3/uL (0.4-5.4); Lymphocytes % (auto) 18.4 % (10.0-50.0); Mean Corpuscular Hgb Conc. 32.7 g/dL (32.0-36.0); Mean Corpuscular Volume 82.7 fL (80.0-100.0); Monocytes # (auto) 0.9 10 ^3/uL (0-1.3); Monocytes % (auto) 10.3 % (0.0-12.0); Platelet Count (auto) 296 10^3/uL (140-450); Red Blood Cells 4.67 10^6/uL (4.5-5.90); Red Cell Distribution Width 12.6 % (11.8-14.3); White Blood Cell 8.6 10^3/uL (4.4-10.8)
[2024-09-30 07:39] LABS: Chloride 106 mmol/L (98-107); Sodium 141 mmol/L (136-145)
[2024-09-30 07:40] LABS: Anion Gap 11 (5-15); Carbon Dioxide 24 mmol/L (20-31)
[2024-09-30 07:41] LABS: Potassium 3.4 mmol/L (3.5-5.1)
[2024-09-30 07:45] LABS: Glucose 89 mg/dL (74-106)
[2024-09-30 07:46] LABS: Magnesium 1.9 mg/dL (1.6-2.6)
[2024-09-30 07:48] LABS: BUN/Creatinine Ratio 6.6 (10.0-20.0); Blood Urea Nitrogen < 5 mg/dL (9-23)
--- NOTE | 2024-09-30 11:09 | DVHPN2 ---
Progress Note Date Seen: Sep 30, 2024 Medical Necessity Reason Pt with a Central, PICC or Fol: No Objective vital signs Vital Sign Date Time Temp Pulse Resp B/P (MAP) Pulse Ox O2 Delivery O2 Flow Rate FiO2 09/30/24 09:00 98.5 80 16 122/77 (92) 99 98.5 09/30/24 08:00 Room Air* 0 21 Total Intake and Output 09/29/24 09/29/24 09/30/24 15:00 23:00 07:00 Intake Total 300 ml 400 ml 900 ml Balance 300 ml 400 ml 900 ml medications Current Medications Medications Dose Ordered Sig/Yared Route Start Time Stop Time Status Last Admin Dose Admin Sodium Chloride 10 ml Q8HR IV 09/27/24 06:00 09/30/24 05:49 10 ML Acetaminophen 650 mg Q6HP PRN PO 09/27/24 01:15 Morphine Sulfate 2 mg Q4HPRN PRN IV 09/27/24 01:15 09/30/24 05:40 2 MG Pantoprazole Sodium 40 mg DAILY IV 09/27/24 10:00 09/30/24 09:40 40 MG Metronidazole 100 ml @ 100 mls/hr Q8HR IV 09/27/24 06:00 09/30/24 05:40 100 MLS/HR Piperacillin Sod/ Tazobactam Sod 100 ml @ 25 mls/hr Q6HR IV 09/27/24 12:00 09/30/24 05:41 25 MLS/HR Ketorolac Tromethamine 15 mg [id number] PRN IV 09/28/24 07:15 10/03/24 07:14 09/29/24 03:00 15 MG Dextrose/Sodium Chloride 1,000 ml @ 100 mls/hr Q10H IV 09/28/24 14:45 09/29/24 22:00 100 MLS/HR laboratory and microbiology Laboratory Tests 09/30/24 06:37 Test 09/30/24 06:37 Range/Units Serum Glucose 89 74-106 mg/dL Microbiology Date/Time Source Procedure Growth Status 09/27/24 06:30 Nose MRSA Screen - Final Complete 09/26/24 23:35 Blood Blood Culture - Preliminary NO GROWTH AFTER 72 HOURS OF INCUBATION. Resulted 09/26/24 22:30 Voided Urine Urine Culture - Final Complete Problem List/Assessment/Plan Problem List/Assessment/Plan AFEBRILE VSS LLQ PAIN BUT LESS KUB NO FREE AIR REPEAT CT SCAN ABD PELVIS PENDING KEEP NPO IV ABX NURSE AT BEDSIDE Plan discussed with: Patient My Orders My Orders Orders - SANDRA WHITT MD Procedure Category Date Status Time Ct Ab Pelv W Wo CT 09/30/24 Logged Con-Oral & Iv 08:00 Dietary Evaluation Review Comments: 1) If patient remains NPO for more than 7 days, consider TPN to meet at least 75% of estimated needs 2) If GI route is preferred, consider Vital AF @ 50 mL goal rate as tolerated. Goal rate will provide 1,440 kcals, 90g Pro, and 973 mL free H2O per 24 hrs 3) Advance to low fiber diet when medically feasible 4) Continue current plan of care Expected Outcomes/Goals: 1) diet to advance 2) appetite and labs to improve 3) f/u in 3 days SANDRA WHITT MD Sep 30, 2024 11:09
--- NOTE | 2024-09-30 11:25 | DVHPNRES ---
Progress Note Date Seen: Sep 30, 2024 Resident Creating Document: PARAG EASLEY RESIDENT Medical Necessity Reason Pt with a Central, PICC or Fol: No Subjective Review of Systems Patient is a 33-year-old male with past medical history of diverticulosis, who comes in due to abdominal pain. According to the patient, since yesterday he has been having increasing abdominal pain which has progressively worsened until he felt like he could not tolerated which is what prompted this visit to the hospital. Of note, patient was recently admitted to the [facility] and treated for diverticulitis with antibiotics, which patient notes that he completed the course and adhere to the dietary recommendations given to him discharge. Patient notes moving makes his pain worse, pain is relieved by morphine. Per patient, 2 years ago he completed a colonoscopy when he was told he has diverticulosis with diverticulitis at the time in 2019. After that patient had another episode of diverticulitis in 2022, after which he was told he might need elective colectomy in the outpatient, however, patient notes that he has been hesitant in intimidated by the procedure. Patient notes that the current pain he is feeling a similar to the pain he felt when he had an episode of diverticulitis with abscess in 2022 which was subsequently drained. CT abdomen pelvis showed diverticulitis in the descending left colon and sigmoid colon with a large inflammatory mass noted extending in the midabdomen 8.2 x 6.8 cm. Small bubbles of air in the soft tissues this may be free air findings consistent with diverticulitis area measures 8.2 x 6.8 cm., this will be patient's 3rd episode of diverticulitis in the last 5 years. Past surgical history: Denies Home medications: None Past Hospitalization: Discharged on 09/21/2024 sigmoid diverticulitis Social & Personal history: Patient lives with and kids. Denies smoking. Uses alcohol occasionally. Uses marijuana daily, denies using any other drugs. Allergies: None Patient seen and examined at bedside. Patient is alert and oriented to time, place person and responding to all questions. Patient reports improved pain yesterday and is able to ambulate much better. Objective vital signs Vital Sign Date Time Temp Pulse Resp B/P (MAP) Pulse Ox O2 Delivery O2 Flow Rate FiO2 09/30/24 09:00 98.5 80 16 122/77 (92) 99 98.5 09/30/24 08:00 Room Air* 0 21 Total Intake and Output 09/29/24 09/29/24 09/30/24 15:00 23:00 07:00 Intake Total 300 ml 400 ml 900 ml Balance 300 ml 400 ml 900 ml medications Current Medications Medications Dose Ordered Sig/Yared Route Start Time Stop Time Status Last Admin Dose Admin Sodium Chloride 10 ml Q8HR IV 09/27/24 06:00 09/30/24 05:49 10 ML Acetaminophen 650 mg Q6HP PRN PO 09/27/24 01:15 Morphine Sulfate 2 mg Q4HPRN PRN IV 09/27/24 01:15 09/30/24 05:40 2 MG Pantoprazole Sodium 40 mg DAILY IV 09/27/24 10:00 09/30/24 09:40 40 MG Metronidazole 100 ml @ 100 mls/hr Q8HR IV 09/27/24 06:00 09/30/24 05:40 100 MLS/HR Piperacillin Sod/ Tazobactam Sod 100 ml @ 25 mls/hr Q6HR IV 09/27/24 12:00 09/30/24 05:41 25 MLS/HR Ketorolac Tromethamine 15 mg [id number] PRN IV 09/28/24 07:15 10/03/24 07:14 09/29/24 03:00 15 MG Dextrose/Sodium Chloride 1,000 ml @ 100 mls/hr Q10H IV 09/28/24 14:45 09/29/24 22:00 100 MLS/HR Examination General Appearance: Cooperative. Well developed. Well nourished. NAD Head Exam: Normal inspection Neck Exam: Normal inspection. Non-tender. Normal alignment Pulmonary/Respiratory: Chest non-tender. Clear bilateral breath sounds, no crackles, no wheezing. Cardiovascular/Chest: Regular rate and rhythm. No murmurs. No JVD. Peripheral Pulses: 2+ Radial (R). 2+ Radial (L). 2+ Pedal (R). 2+ Pedal (L) Abdominal Exam: Normal bowel sounds. Soft. Generalized abdominal tenderness to palpation, more pronounced on the left. no visible veins, Nontender. No hepatospenomegaly. No masses Ankle Exam: Negative ankle edema Lower extremities: Negative lower extremity edema Neuro/Mental Status: A&O x4. Coherent. Thoughts/Psych: Normal thought pattern. Appropriate mood and affect. Good judgement and insight Skin Exam: Normal inspection. Normal color. Warm. Dry laboratory and microbiology Laboratory Tests 09/30/24 06:37 Test 09/30/24 06:37 Range/Units Serum Glucose 89 74-106 mg/dL Microbiology Date/Time Source Procedure Growth Status 09/27/24 06:30 Nose MRSA Screen - Final Complete 09/26/24 23:35 Blood Blood Culture - Preliminary NO GROWTH AFTER 72 HOURS OF INCUBATION. Resulted 09/26/24 22:30 Voided Urine Urine Culture - Final Complete Labs and/or images reviewed: Labs reviewed by me, Image(s) reviewed by me Problem List/Assessment/Plan Problem List/Assessment/Plan Sepsis due to diverticulitis Diverticulitis complicated with probable abscess Acute intractable abdominal pain due to above - CT abdomen pelvis: Diverticulitis in the descending left colon and sigmoid colon with a large inflammatory mass noted extending in the mid abdomen for 8.2 by 6.8 cm. There are small bubbles of air in the soft tissues this may be free air findings consistent with diverticulitis area measures 8.2 by 6.8 cm. - serum lipase 30 - IV NS 2 L bolus, currently on IV D5 with NS at 100 cc/hour - IV Zosyn, IV metronidazole - acetaminophen 650 mg as needed - surgery consulted - NPO - leave: No evidence of bowel obstruction - pending repeat CT abdomen pelvis with contrast Marijuana dependence Obesity - counseled PUD prophylaxis: protonix 40mg Goals of care: Full code, discussed for >16 minutes on 09/27/2024 Plan discussed with patient Plan discussed with Dr. Stewart Plan discussed with: Patient, Other (RN) Dietary Evaluation Review Comments: 1) If patient remains NPO for more than 7 days, consider TPN to meet at least 75% of estimated needs 2) If GI route is preferred, consider Vital AF @ 50 mL goal rate as tolerated. Goal rate will provide 1,440 kcals, 90g Pro, and 973 mL free H2O per 24 hrs 3) Advance to low fiber diet when medically feasible 4) Continue current plan of care Expected Outcomes/Goals: 1) diet to advance 2) appetite and labs to improve 3) f/u in 3 days Date of Service: Sep 30, 2024 Billing Provider: SHANTELLE STEWART MD Common Visit Codes: [id number] INP/OBS CARE(HIGH) PARAG EASLEY 2, 2025 11:25 SHANTELLE STEWART MD Oct 02, 2024 16:14
--- NOTE | 2024-09-30 14:16 | DVH ---
Exam: CT CT AB PELV W WO CON-ORAL IV History: Mass in sigmoid colon/Mid Abd 8.2cm x 6.8cm Comparison Study: Comparison studies 09/20/2024: 09/26/2024 Contrast: Type of contrast: Omnipaque 300 Contrast injected: 80 mL Contrast wasted: 0 TECHNIQUE: A digital photo offset printer image was obtained. During the uneventful, intravenous administration of c ontrast material, multislice data acquisition was obtained through the abdomen and pelvis. The data s et was subsequently reconstructed into axial images. Images were reviewed on a work station using a c ombination of axial and multiplanar using a variety of window levels and settings. Radiation Dose Information: CT Dose: CTDI volume is 7.86 mGy. Dose-length product is 882.08 mGy*cm FINDINGS: Lung Bases: No acute or significant lung base finding. Normal heart size. No pleural or pericardial effusion. Liver: The liver is normal in size. No focal lesions. Normal hepatic vascular enhancement. Gallbladder and Biliary Tree: Unremarkable Spleen: Unremarkable Pancreas: The pancreas is normal in appearance without focal lesions or abnormal enhancement. Adrenal Glands: Unremarkable Kidneys: Kidneys demonstrate normal symmetric enhancement without focal lesions, calculi or hydroneph rosis. Bladder: Unremarkable Bowel: The stomach is grossly normal in appearance. Small bowel normal in caliber and distribution. Inflammatory changes at the junction of the descending and sigmoid colon consistent with diverticulit is as noted before. Although there is no drainable fluid collections there is small 13-14 mm collecti on of gas the colon or soft tissues proximally. There is no drainable fluid collections. There is no extravasation contrast. Contrast is noted traversing the air of inflammatory tissue and noted in the rectum. (series 2 ; images 67- 69). The appendix is not visualized; however, no secondary findings of acute appendicitis identified. Ascites: Absent Lymphadenopathy: No mesenteric, retroperitoneal or periportal lymphadenopathy. Abdominal Wall and Mesentery: Unremarkable. Vasculature: The visualized abdominal aorta is normal in size and caliber. Abdominal and pelvic vess els demonstrate normal enhancement. Pelvic Organs: Unremarkable Musculoskeletal: No aggressive focal bony lesions, acute fractures or dislocation. Soft tissues: Unremarkable. IMPRESSION: 1. Persistent findings of diverticulitis with extensive inflammatory changes in the pericolonic soft tissues. There is no drainable fluid collections. 2. Small 13-14 mm collection of gas is noted in the soft tissues which may be in the bowel or pericol onic soft tissues. There is no drainable fluid collections. 3. Contrast is noted traversing this area of inflamed tissue with no extravasation into the soft tiss ues. Oral contrast noted in the rectosigmoid tissues distal to the area of diverticulitis. All CT scans at this medical facility are performed using dose modulation techniques as appropriate t o a performed exam including the following: Automated exposure control was utilized; adjustment of th e MA and/or KV according to patient size; and use of iterative reconstruction technique. HS:Y
[2024-10-01] VITALS (7 sets, daily range): BP systolic 119–139; BP diastolic 72–87; PULSE 56–74; RESP 15–18; TEMP 97.6–99.1; O2SAT 96–99
[2024-10-01 06:15] LABS: Basophils # (auto) 0 10 ^3/uL (0-0.2); Eosinophils # (auto) 0.1 10 ^3/uL (0-0.8); Lymphocytes # (auto) 1.8 10 ^3/uL (0.4-5.4); Mean Corpuscular Hemoglobin 26.6 pg (28.0-32.0); Neutrophils # (auto) 5.2 10 ^3/uL (1.6-8.6)
[2024-10-01 06:17] LABS: Basophils % (auto) 0.6 % (0.0-2.0); Eosinophils % (auto) 1.2 % (0.0-7.0); Hematocrit 38.9 % (41.0-53.0); Hemoglobin 12.7 g/dL (13.5-17.5); Mean Corpuscular Hgb Conc. 32.7 g/dL (32.0-36.0); Mean Corpuscular Volume 81.5 fL (80.0-100.0); Monocytes # (auto) 0.8 10 ^3/uL (0-1.3); Neutrophils % (auto) 65.2 % (37.0-80.0); Platelet Count (auto) 320 10^3/uL (140-450); Red Blood Cells 4.77 10^6/uL (4.5-5.90); Red Cell Distribution Width 12.6 % (11.8-14.3)
[2024-10-01 06:25] LABS: Chloride 106 mmol/L (98-107); Sodium 142 mmol/L (136-145)
[2024-10-01 06:26] LABS: Anion Gap 11 (5-15); Carbon Dioxide 25 mmol/L (20-31)
[2024-10-01 06:27] LABS: Calcium 9.4 mg/dL (8.7-10.4)
[2024-10-01 06:31] LABS: Glucose 104 mg/dL (74-106)
[2024-10-01 06:34] LABS: BUN/Creatinine Ratio 8.2 (10.0-20.0); Blood Urea Nitrogen < 5 mg/dL (9-23); Potassium 3.1 mmol/L (3.5-5.1)
[2024-10-01] MEDS: POTASSIUM CHL 20MEQ/100ML 100 ML IV SCH (06:59)
[2024-10-01 14:42] LABS: INR 1.35 (0.9-1.15); Partial Thromboplastin Time 30.7 SEC (24.5-34.5); Prothrombin Time 13.9 sec (9.3-11.8)
[2024-10-01] MEDS: GASTROGRAFIN 30 ML SOL ONE (15:56)
[2024-10-01] MEDS: IOHEXOL 300 MG/ML 100ML BOTTLE IJ ONE (15:56)
--- NOTE | 2024-10-01 16:29 | DVHPNRES ---
Progress Note Date Seen: Oct 01, 2024 Resident Creating Document: PARAG EASLEY RESIDENT Medical Necessity Reason Pt with a Central, PICC or Fol: No Subjective Review of Systems Patient is a 33-year-old male with past medical history of diverticulosis, who comes in due to abdominal pain. According to the patient, since yesterday he has been having increasing abdominal pain which has progressively worsened until he felt like he could not tolerated which is what prompted this visit to the hospital. Of note, patient was recently admitted to the [facility] and treated for diverticulitis with antibiotics, which patient notes that he completed the course and adhere to the dietary recommendations given to him discharge. Patient notes moving makes his pain worse, pain is relieved by morphine. Per patient, 2 years ago he completed a colonoscopy when he was told he has diverticulosis with diverticulitis at the time in 2019. After that patient had another episode of diverticulitis in 2022, after which he was told he might need elective colectomy in the outpatient, however, patient notes that he has been hesitant in intimidated by the procedure. Patient notes that the current pain he is feeling a similar to the pain he felt when he had an episode of diverticulitis with abscess in 2022 which was subsequently drained. CT abdomen pelvis showed diverticulitis in the descending left colon and sigmoid colon with a large inflammatory mass noted extending in the midabdomen 8.2 x 6.8 cm. Small bubbles of air in the soft tissues this may be free air findings consistent with diverticulitis area measures 8.2 x 6.8 cm., this will be patient's 3rd episode of diverticulitis in the last 5 years. Past surgical history: Denies Home medications: None Past Hospitalization: Discharged on 09/21/2024 sigmoid diverticulitis Social & Personal history: Patient lives with and kids. Denies smoking. Uses alcohol occasionally. Uses marijuana daily, denies using any other drugs. Allergies: None Patient seen and examined at bedside. Patient is alert and oriented to time, place person and responding to all questions. Patient reports improved pain 2 /10 Objective vital signs Vital Sign Date Time Temp Pulse Resp B/P (MAP) Pulse Ox O2 Delivery O2 Flow Rate FiO2 10/01/24 12:56 99.1 71 16 125/77 (93) 98 99.1 10/01/24 08:00 Room Air* 0 21 Total Intake and Output 09/30/24 09/30/24 10/01/24 15:00 23:00 07:00 Intake Total 600 ml 100 ml 1634 ml Balance 600 ml 100 ml 1634 ml medications Current Medications Medications Dose Ordered Sig/Yared Route Start Time Stop Time Status Last Admin Dose Admin Sodium Chloride 10 ml Q8HR IV 09/27/24 06:00 10/01/24 13:32 10 ML Acetaminophen 650 mg Q6HP PRN PO 09/27/24 01:15 Morphine Sulfate 2 mg Q4HPRN PRN IV 09/27/24 01:15 09/30/24 22:07 2 MG Pantoprazole Sodium 40 mg DAILY IV 09/27/24 10:00 10/01/24 09:37 40 MG Metronidazole 100 ml @ 100 mls/hr Q8HR IV 09/27/24 06:00 10/01/24 13:32 100 MLS/HR Piperacillin Sod/ Tazobactam Sod 100 ml @ 25 mls/hr Q6HR IV 09/27/24 12:00 10/01/24 14:35 25 MLS/HR Ketorolac Tromethamine 15 mg [id number] PRN IV 09/28/24 07:15 10/03/24 07:14 09/29/24 03:00 15 MG Dextrose/Sodium Chloride 1,000 ml @ 100 mls/hr Q10H IV 09/28/24 14:45 10/01/24 09:59 100 MLS/HR Examination General Appearance: Cooperative. Well developed. Well nourished. NAD Head Exam: Normal inspection Neck Exam: Normal inspection. Non-tender. Normal alignment Pulmonary/Respiratory: Chest non-tender. Clear bilateral breath sounds, no crackles, no wheezing. Cardiovascular/Chest: Regular rate and rhythm. No murmurs. No JVD. Peripheral Pulses: 2+ Radial (R). 2+ Radial (L). 2+ Pedal (R). 2+ Pedal (L) Abdominal Exam: Normal bowel sounds. Soft. Generalized abdominal tenderness to palpation, more pronounced on the left. no visible veins, Nontender. No hepatospenomegaly. No masses Ankle Exam: Negative ankle edema Lower extremities: Negative lower extremity edema Neuro/Mental Status: A&O x4. Coherent. Thoughts/Psych: Normal thought pattern. Appropriate mood and affect. Good judgement and insight Skin Exam: Normal inspection. Normal color. Warm. Dry laboratory and microbiology Laboratory Tests 10/01/24 05:17 Test 10/01/24 05:17 Range/Units Serum Glucose 104 74-106 mg/dL Microbiology Date/Time Source Procedure Growth Status 09/27/24 06:30 Nose MRSA Screen - Final Complete 09/26/24 23:35 Blood Blood Culture - Preliminary NO GROWTH AFTER 72 HOURS OF INCUBATION. Resulted 09/26/24 22:30 Voided Urine Urine Culture - Final Complete Labs and/or images reviewed: Labs reviewed by me, Image(s) reviewed by me Problem List/Assessment/Plan Problem List/Assessment/Plan Sepsis due to diverticulitis Diverticulitis complicated with probable abscess Acute intractable abdominal pain due to above - CT abdomen pelvis: Diverticulitis in the descending left colon and sigmoid colon with a large inflammatory mass noted extending in the mid abdomen for 8.2 by 6.8 cm. There are small bubbles of air in the soft tissues this may be free air findings consistent with diverticulitis area measures 8.2 by 6.8 cm. - serum lipase 30 - IV NS 2 L bolus, currently on IV D5 with NS at 100 cc/hour - IV Zosyn, IV metronidazole - acetaminophen 650 mg as needed - surgery consulted - NPO - KUB: No evidence of bowel obstruction - repeat CT abdomen pelvis with contrast: Persistent findings of diverticulitis with extensive inflammatory changes in the pericolonic soft tissues. There is no drainable fluid collections. Small 13-14 mm collection of gas is noted in the soft tissues which may be in the bowel or pericolonic soft tissues. There is no drainable fluid collections. Contrast is noted traversing this area of inflamed tissue with no extravasation into the soft tissues. Oral contrast noted in the rectosigmoid tissues distal to the area of diverticulitis - we will set up home health for IV antibiotics once cleared from surgery perspective Marijuana dependence Obesity - counseled PUD prophylaxis: protonix 40mg Goals of care: Full code, discussed for >16 minutes on 09/27/2024 Plan discussed with patient Plan discussed with Dr. Stewart Plan discussed with: Patient, Other (RN) My Orders My Orders Orders - PARAG EASLEY RESIDENT Procedure Category Date Status Time Insert Midline ORDERS 10/01/24 Transmitted 10:10 Dietary Evaluation Review Comments: 1) If patient remains NPO for more than 7 days, consider TPN to meet at least 75% of estimated needs 2) If GI route is preferred, consider Vital AF @ 50 mL goal rate as tolerated. Goal rate will provide 1,440 kcals, 90g Pro, and 973 mL free H2O per 24 hrs 3) Advance to low fiber diet when medically feasible 4) Continue current plan of care Expected Outcomes/Goals: 1) diet to advance 2) appetite and labs to improve 3) f/u in 3 days Date of Service: Oct 01, 2024 Billing Provider: SHANTELLE STEWART MD Common Visit Codes: [id number] INP/OBS CARE(HIGH) PARAG EASLEY RESIDENT Oct 01, 2024 16:29 SHANTELLE STEWART MD Oct 09, 2024 15:55
--- NOTE | 2024-10-01 17:23 | DVHPN2 ---
Progress Note Date Seen: Oct 01, 2024 Medical Necessity Reason Pt with a Central, PICC or Fol: No Objective vital signs Vital Sign Date Time Temp Pulse Resp B/P (MAP) Pulse Ox O2 Delivery O2 Flow Rate FiO2 10/01/24 17:00 98.3 69 16 133/86 (102) 97 98.3 10/01/24 08:00 Room Air* 0 21 Total Intake and Output 09/30/24 09/30/24 10/01/24 15:00 23:00 07:00 Intake Total 600 ml 100 ml 1634 ml Balance 600 ml 100 ml 1634 ml medications Current Medications Medications Dose Ordered Sig/Yared Route Start Time Stop Time Status Last Admin Dose Admin Sodium Chloride 10 ml Q8HR IV 09/27/24 06:00 10/01/24 13:32 10 ML Acetaminophen 650 mg Q6HP PRN PO 09/27/24 01:15 Morphine Sulfate 2 mg Q4HPRN PRN IV 09/27/24 01:15 09/30/24 22:07 2 MG Pantoprazole Sodium 40 mg DAILY IV 09/27/24 10:00 10/01/24 09:37 40 MG Metronidazole 100 ml @ 100 mls/hr Q8HR IV 09/27/24 06:00 10/01/24 13:32 100 MLS/HR Piperacillin Sod/ Tazobactam Sod 100 ml @ 25 mls/hr Q6HR IV 09/27/24 12:00 10/01/24 14:35 25 MLS/HR Ketorolac Tromethamine 15 mg [id number] PRN IV 09/28/24 07:15 10/03/24 07:14 09/29/24 03:00 15 MG Dextrose/Sodium Chloride 1,000 ml @ 100 mls/hr Q10H IV 09/28/24 14:45 10/01/24 09:59 100 MLS/HR laboratory and microbiology Laboratory Tests 10/01/24 05:17 Test 10/01/24 05:17 Range/Units Serum Glucose 104 74-106 mg/dL Microbiology Date/Time Source Procedure Growth Status 09/27/24 06:30 Nose MRSA Screen - Final Complete 09/26/24 23:35 Blood Blood Culture - Preliminary NO GROWTH AFTER 72 HOURS OF INCUBATION. Resulted 09/26/24 22:30 Voided Urine Urine Culture - Final Complete Problem List/Assessment/Plan Problem List/Assessment/Plan AFEBRILE VSS LLQ PAIN RESOLVED KUB NO FREE AIR REPEAT CT SCAN ABD PELVIS NO DRAINABLE ABSCESS ALLOW CLEAR LIQUIDS IV ABX NURSE AT BEDSIDE Plan discussed with: Patient My Orders My Orders Orders - SANDRA WHITT MD Procedure Category Date Status Time Communication Order ORDERS 09/30/24 Transmitted 19:01 Clear Liq Diet DIET 10/01/24 Transmitted Dinner Dietary Evaluation Review Comments: 1) If patient remains NPO for more than 7 days, consider TPN to meet at least 75% of estimated needs 2) If GI route is preferred, consider Vital AF @ 50 mL goal rate as tolerated. Goal rate will provide 1,440 kcals, 90g Pro, and 973 mL free H2O per 24 hrs 3) Advance to low fiber diet when medically feasible 4) Continue current plan of care Expected Outcomes/Goals: 1) diet to advance 2) appetite and labs to improve 3) f/u in 3 days SANDRA WHITT MD Oct 01, 2024 17:22
[2024-10-02] VITALS (7 sets, daily range): BP systolic 115–139; BP diastolic 63–91; PULSE 60–105; RESP 15–26; TEMP 97.5–98.4; O2SAT 95–100
[2024-10-02] MEDS: PIPERACILLIN-TAZOB 3.375GM 100 ML IV SCH (00:34)
[2024-10-02 12:11] LABS: Calcium 10.2 mg/dL (8.7-10.4); Chloride 103 mmol/L (98-107); Sodium 140 mmol/L (136-145)
[2024-10-02 12:12] LABS: Anion Gap 10 (5-15); Carbon Dioxide 27 mmol/L (20-31)
[2024-10-02 12:21] LABS: BUN/Creatinine Ratio 6.7 (10.0-20.0); Blood Urea Nitrogen < 5 mg/dL (9-23); Glucose 122 mg/dL (74-106); Potassium 3.5 mmol/L (3.5-5.1)
--- NOTE | 2024-10-02 16:32 | DVHDSRES ---
Discharge Summary Date of Admission Resident Creating Document: PARAG EASLEY RESIDENT Sep 27, 2024 at 01:09 Date of Discharge: Oct 02, 2024 Admitting Diagnosis Acute intractable abdominal pain Labs/Diagnostic Data: Laboratory Results Test 10/02/24 11:29 10/01/24 14:00 10/01/24 05:17 09/30/24 06:37 Sodium Level 140 mmol/L (136-145) Potassium Level 3.5 mmol/L (3.5-5.1) Chloride Level 103 mmol/L (98-107) Carbon Dioxide Level 27 mmol/L (20-31) Anion Gap 10 (5-15) Blood Urea Nitrogen < 5 mg/dL (9-23) Creatinine 0.75 mg/dL (0.700-1.30) Glomerular Filtration Rate Calc 123 mL/min (>90) BUN/Creatinine Ratio 6.7 (10.0-20.0) Serum Glucose 122 mg/dL (74-106) Calcium Level 10.2 mg/dL (8.7-10.4) Prothrombin Time 13.9 sec (9.3-11.8) Prothrombin Time INR 1.35 (0.9-1.15) Activated Partial Thromboplast Time 30.7 SEC (24.5-34.5) White Blood Count 8.0 10^3/uL (4.4-10.8) Red Blood Count 4.77 10^6/uL (4.5-5.90) Hemoglobin 12.7 g/dL (13.5-17.5) Hematocrit 38.9 % (41.0-53.0) Mean Corpuscular Volume 81.5 fL (80.0-100.0) Mean Corpuscular Hemoglobin 26.6 pg (28.0-32.0) Mean Corpuscular Hemoglobin Concent 32.7 g/dL (32.0-36.0) Red Cell Distribution Width 12.6 % (11.8-14.3) Platelet Count 320 10^3/uL (140-450) Mean Platelet Volume 8.7 fL (6.9-10.8) Neutrophils (%) (Auto) 65.2 % (37.0-80.0) Lymphocytes (%) (Auto) 23.0 % (10.0-50.0) Monocytes (%) (Auto) 10.0 % (0.0-12.0) Eosinophils (%) (Auto) 1.2 % (0.0-7.0) Basophils (%) (Auto) 0.6 % (0.0-2.0) Neutrophils # (Auto) 5.2 10 ^3/uL (1.6-8.6) Lymphocytes # (Auto) 1.8 10 ^3/uL (0.4-5.4) Monocytes # (Auto) 0.8 10 ^3/uL (0-1.3) Eosinophils # (Auto) 0.1 10 ^3/uL (0-0.8) Basophils # (Auto) 0 10 ^3/uL (0-0.2) Nucleated Red Blood Cells 0.0 % Magnesium Level 1.9 mg/dL (1.6-2.6) Test 09/27/24 05:05 09/26/24 23:35 09/26/24 22:30 09/26/24 21:40 Total Bilirubin 0.7 mg/dL (0.2-1.0) Aspartate Amino Transferase (AST) 16 U/L (13-40) Alanine Aminotransferase (ALT) 22 U/L (7-40) Alkaline Phosphatase 79 U/L (46-116) Total Protein 7.5 g/dL (5.7-8.2) Albumin 4.9 g/dL (3.2-4.8) Hepatitis B Surface Antigen Negative (Negative) Hepatitis C Antibody Negative (Negative) Lactic Acid Level 0.8 mmol/L (0.4-2.0) Urine Color Yellow (Yellow) Urine Clarity Clear (Clear) Urine pH 6.5 (5.0-9.0) Urine Specific [place] > 1.050 (1.001-1.035) Urine Protein Negative (Negative) Urine Ketones Trace (Negative) Urine Blood Negative /uL (Negative) Urine Nitrite Negative (Negative) Urine Bilirubin Negative (Negative) Urine Urobilinogen Normal mg/dL (Negative) Urine Leukocyte Esterase Negative /uL (Negative) Urine RBC 1 /hpf (0 - 3) Urine Microscopic WBC 1 /HPF (0-3) Urine Squamous Epithelial Cells None seen /hpf (<5) Urine Bacteria None seen /hpf (None Seen) Urine Glucose Normal mg/dL (Normal) Urine Opiates Screen Pos (NEGATIVE) Urine Fentanyl Screen Neg (NEGATIVE) Urine Barbiturates Screen Neg (NEGATIVE) Urine Phencyclidine Screen Neg (NEGATIVE) Urine Amphetamines Screen Neg (NEGATIVE) Urine Benzodiazepines Screen Neg (NEGATIVE) Urine Cocaine Screen Neg (NEGATIVE) Urine Cannabinoids Screen Pos (NEGATIVE) Lipase 30 U/L (12-53) Plasma/Serum Blood Alcohol < 3.0 mg/dL (<10) Other Laboratory Tests 10/02/24 11:29 10/01/24 05:17 Brief Hx & Hospital Course: Patient is a 33-year-old male with past medical history of diverticulosis, who comes in due to abdominal pain. According to the patient, since yesterday he has been having increasing abdominal pain which has progressively worsened until he felt like he could not tolerated which is what prompted this visit to the hospital. Of note, patient was recently admitted to the [facility] and treated for diverticulitis with antibiotics, which patient notes that he completed the course and adhere to the dietary recommendations given to him discharge. Patient notes moving makes his pain worse, pain is relieved by morphine. Per patient, 2 years ago he completed a colonoscopy when he was told he has diverticulosis with diverticulitis at the time in 2019. After that patient had another episode of diverticulitis in 2022, after which he was told he might need elective colectomy in the outpatient, however, patient notes that he has been hesitant in intimidated by the procedure. Patient notes that the current pain he is feeling a similar to the pain he felt when he had an episode of diverticulitis with abscess in 2022 which was subsequently drained. CT abdomen pelvis showed diverticulitis in the descending left colon and sigmoid colon with a large inflammatory mass noted extending in the midabdomen 8.2 x 6.8 cm. Small bubbles of air in the soft tissues this may be free air findings consistent with diverticulitis area measures 8.2 x 6.8 cm., this will be patient's 3rd episode of diverticulitis in the last 5 years. Hospital course: Patient was given IV NS 2 L bolus and then transitioned to IV NS with D5 at 100 cc/hours patient was also continued on IV Zosyn and IV metronidazole along with acetaminophen for pain, patient was kept NPO and surgery was consulted. Surgery recommended conservative management with antibiotics, KUB was repeated for the patient on the 2nd day of hospitalization which did not show any evidence of bowel obstruction or free air. CT abdomen pelvis with contrast was completed for patient in the 3rd day of hospitalization which showed Persistent findings of diverticulitis with extensive inflammatory changes in the pericolonic soft tissues. There is no drainable fluid collections. Small 13-14 mm collection of gas is noted in the soft tissues which may be in the bowel or pericolonic soft tissues. There is no drainable fluid collections. Contrast is noted traversing this area of inflamed tissue with no extravasation into the soft tissues. Oral contrast noted in the rectosigmoid tissues distal to the area of diverticulitis. Patient was advanced to a clear liquid diet on the 4th day of hospitalization, which he tolerated well. Home health was set up for the patient to continue IV antibiotics at home. On the day of discharge, patient appeared well and had stable vital signs, patient denied any active ongoing abdominal pain and was able to tolerate clear liquid diet lunch without any pain or discomfort 3-4 hours afterwards. His hospital course was uncomplicated. General Appearance: Cooperative. Well developed. Well nourished. NAD Head Exam: Normal inspection Neck Exam: Normal inspection. Non-tender. Normal alignment Pulmonary/Respiratory: Chest non-tender. Clear bilateral breath sounds, no crackles, no wheezing. Cardiovascular/Chest: Regular rate and rhythm. No murmurs. No JVD. Peripheral Pulses: 2+ Radial (R). 2+ Radial (L). 2+ Pedal (R). 2+ Pedal (L) Abdominal Exam: Normal bowel sounds. Soft. Nontender. no visible veins, Nontender. No hepatospenomegaly. No masses Ankle Exam: Negative ankle edema Lower extremities: Negative lower extremity edema Neuro/Mental Status: A&O x4. Coherent. Thoughts/Psych: Normal thought pattern. Appropriate mood and affect. Good judgement and insight Skin Exam: Normal inspection. Normal color. Warm. Dry Consults/Reason for consult Surgery: Diverticulitis with inflammatory mass Operations or Procedures Exam: CT CT AB PEL WITH IV CON ONLY History: LLQ pain Comparison Study: None available at time of dictation. Contrast: Type of contrast: Omnipaque 3 Contrast injected: 100 mL Contrast wasted: 0 TECHNIQUE: A digital bit gatherer image was obtained. During the uneventful, intravenous administration of contrast material, multislice data acquisition was obtained through the abdomen and pelvis. The data set was subsequently reconstructed into axial images. Images were reviewed on a work station using a combination of axial and multiplanar using a variety of window levels and settings. Radiation Dose Information: CT Dose: CTDI volume is 8.51 mGy. Dose-length product is 554.44 mGy*cm FINDINGS: Lung Bases: No acute or significant lung base finding. Normal heart size. No pleural or pericardial effusion. Liver: The liver is normal in size. No focal lesions. Normal hepatic vascular enhancement. Gallbladder and Biliary Tree: Unremarkable Spleen: Unremarkable Pancreas: The pancreas is normal in appearance without focal lesions or abnormal enhancement. Adrenal Glands: Unremarkable Kidneys: Kidneys demonstrate normal symmetric enhancement without focal lesions, calculi or hydronephrosis. Bladder: Unremarkable Bowel: The stomach is grossly normal in appearance. Severe inflammatory changes in the left and sigmoid colon suggesting diverticulitis. Possible small bubbles of air in the adjacent soft tissues suggesting diverticulitis. The appendix is not visualized; however, no secondary findings of acute appendicitis identified. Ascites: Absent Lymphadenopathy: No mesenteric, retroperitoneal or periportal lymphadenopathy. Abdominal Wall and Mesentery: Unremarkable. Vasculature: The visualized abdominal aorta is normal in size and caliber. Abdominal and pelvic vessels demonstrate normal enhancement. Pelvic Organs: Unremarkable Musculoskeletal: No aggressive focal bony lesions, acute fractures or dislocation. Soft tissues: Unremarkable. IMPRESSION: 1. Diverticulitis in the descending left colon and sigmoid colon with a large inflammatory mass noted extending in the mid abdomen for 8.2 by 6.8 cm. There are small bubbles of air in the soft tissues this may be free air findings consistent with diverticulitis area measures 8.2 by 6.[address] scans at this medical facility are performed using dose modulation techniques as appropriate to a performed exam including the following: Automated exposure control was utilized; adjustment of the MA and/or KV according to patient size; and use of iterative reconstruction technique. ORDERING PHYSICIAN: SANDRA WHITT MD PROCEDURE(s): KUB - KUB ABDOMEN SINGLE VIEW REASON: diverticulitis ORDER NUMBER(s): [id number], ACCESSION NUMBER(s): [id number] Exam: XY KUB ABDOMEN SINGLE VIEW Indication: diverticulitis Comparison: CT scan of the abdomen and pelvis dated 09/26/2024. Technique: Supine portable AP views of the abdomen were performed. Findings: No abnormal bowel dilatation. Gas is present throughout the colon. No abnormal calcifications overlying the urinary tract. Impression: No evidence of bowel obstruction. Exam: CT CT AB PELV W WO CON-ORAL IV History: Mass in sigmoid colon/Mid Abd 8.2cm x 6.8cm Comparison Study: Comparison studies 09/20/2024: 09/26/2024 Contrast: Type of contrast: Omnipaque 300 Contrast injected: 80 mL Contrast wasted: 0 TECHNIQUE: A digital bit gatherer image was obtained. During the uneventful, intravenous administration of contrast material, multislice data acquisition was obtained through the abdomen and pelvis. The data set was subsequently reconstructed into axial images. Images were reviewed on a work station using a combination of axial and multiplanar using a variety of window levels and settings. Radiation Dose Information: CT Dose: CTDI volume is 7.86 mGy. Dose-length product is 882.08 mGy*cm FINDINGS: Lung Bases: No acute or significant lung base finding. Normal heart size. No pleural or pericardial effusion. Liver: The liver is normal in size. No focal lesions. Normal hepatic vascular enhancement. Gallbladder and Biliary Tree: Unremarkable Spleen: Unremarkable Pancreas: The pancreas is normal in appearance without focal lesions or abnormal enhancement. Adrenal Glands: Unremarkable Kidneys: Kidneys demonstrate normal symmetric enhancement without focal lesions, calculi or hydronephrosis. Bladder: Unremarkable Bowel: The stomach is grossly normal in appearance. Small bowel normal in caliber and distribution. Inflammatory changes at the junction of the descending and sigmoid colon consistent with diverticulitis as noted before. Although there is no drainable fluid collections there is small 13-14 mm collection of gas the colon or soft tissues proximally. There is no drainable fluid collections. There is no extravasation contrast. Contrast is noted traversing the air of inflammatory tissue and noted in the rectum. (series 2 ; images 67- 69). The appendix is not visualized; however, no secondary findings of acute appendicitis identified. Ascites: Absent Lymphadenopathy: No mesenteric, retroperitoneal or periportal lymphadenopathy. Abdominal Wall and Mesentery: Unremarkable. Vasculature: The visualized abdominal aorta is normal in size and caliber. Abdominal and pelvic vessels demonstrate normal enhancement. Pelvic Organs: Unremarkable Musculoskeletal: No aggressive focal bony lesions, acute fractures or dislocation. Soft tissues: Unremarkable. IMPRESSION: 1. Persistent findings of diverticulitis with extensive inflammatory changes in the pericolonic soft tissues. There is no drainable fluid collections. 2. Small 13-14 mm collection of gas is noted in the soft tissues which may be in the bowel or pericolonic soft tissues. There is no drainable fluid collections. 3. Contrast is noted traversing this area of inflamed tissue with no extravasation into the soft tissues. Oral contrast noted in the rectosigmoid tissues distal to the area of diverticulitis. Condition at Discharge: Fair Final Diagnosis/Problems List Diverticulitis with an inflammatory mass 8.2 x 6.8 cm Sepsis due to diverticulitis Acute intractable abdominal pain due to above Marijuana dependence Obesity Discharge Disposition: Home with Health Services Discharge Instruct/Medications Diet: Regular Diet comment: Please continue a clear liquid diet for 1-2 weeks, advance diet as tolerated Activity: No Restrictions, As Tolerated Follow Up/Referral: Please follow up in the discharge clinic in 1-2 weeks Please follow up with surgery in the outpatient clinic Please follow up with PCP Medications: IV Zosyn 3.375 g q.6 hours for 9 days Discharge Statement: "Patient was advised to return to the ER or call 911 if any headaches, dizziness, shortness of breath, chest pain, abdominal pain, bleeding, fevers, or worsening of medical condition. Patient was counseled about treatment plan, medications, possible side effects, patientverbalized understanding. All questions were answered to the best of my ability. This discharge took greater then 30 minutes in planning, reviewing documentation, counseling the patient, and discussing with other team members." ASSESSMENT ASSESSMENT Assessment Diverticulitis with an inflammatory mass 8.2 x 6.8 cm Sepsis due to diverticulitis Acute intractable abdominal pain due to above Marijuana dependence Obesity Date of Service: Oct 02, 2024 Billing Provider: SHANTELLE STEWART MD Common Visit Codes: [id number] INP/OBS CARE(HIGH) PARAG EASLEY Oct 02, 2024 16:32 SHANTELLE STEWART MD Oct 09, 2024 15:55
--- NOTE | 2024-10-02 18:35 | DVHPN2 ---
Progress Note Date Seen: Oct 02, 2024 Medical Necessity Reason Pt with a Central, PICC or Fol: No Objective vital signs Vital Sign Date Time Temp Pulse Resp B/P (MAP) Pulse Ox O2 Delivery O2 Flow Rate FiO2 10/02/24 16:33 98.4 60 17 128/87 (101) 95 98.4 10/02/24 08:00 Room Air* 0 21 Total Intake and Output 10/01/24 10/01/24 10/02/24 15:00 23:00 07:00 Intake Total 266 ml 450 ml 650 ml Balance 266 ml 450 ml 650 ml medications Current Medications Medications Dose Ordered Sig/Yared Route Start Time Stop Time Status Last Admin Dose Admin Sodium Chloride 10 ml Q8HR IV 09/27/24 06:00 10/02/24 14:00 10 ML Acetaminophen 650 mg Q6HP PRN PO 09/27/24 01:15 Morphine Sulfate 2 mg Q4HPRN PRN IV 09/27/24 01:15 10/02/24 06:39 2 MG Pantoprazole Sodium 40 mg DAILY IV 09/27/24 10:00 10/02/24 08:50 40 MG Metronidazole 100 ml @ 100 mls/hr Q8HR IV 09/27/24 06:00 10/02/24 13:00 100 MLS/HR Ketorolac Tromethamine 15 mg [id number] PRN IV 09/28/24 07:15 10/03/24 07:14 09/29/24 03:00 15 MG Piperacillin Sod/ Tazobactam Sod 100 ml @ 25 mls/hr Q6H IV 10/02/24 00:30 10/02/24 14:00 25 MLS/HR laboratory and microbiology Laboratory Tests 10/02/24 11:29 10/01/24 05:17 Test 10/02/24 11:29 Range/Units Serum Glucose 122 H 74-106 mg/dL Microbiology Date/Time Source Procedure Growth Status 09/27/24 06:30 Nose MRSA Screen - Final Complete 09/26/24 23:35 Blood Blood Culture - Final NO GROWTH AFTER 5 DAYS OF INCUBATION. Complete 09/26/24 22:30 Voided Urine Urine Culture - Final Complete Problem List/Assessment/Plan Problem List/Assessment/Plan AFEBRILE VSS LLQ PAIN KUB NO FREE AIR REPEAT CT SCAN ABD PELVIS NO DRAINABLE ABSCESS KEEP NPO IV ABX NURSE AT BEDSIDE CONSIDER HOME TPN AND ABX Plan discussed with: Patient Dietary Evaluation Review Comments: 1) If patient remains NPO for more than 7 days, consider TPN to meet at least 75% of estimated needs 2) If GI route is preferred, consider Vital AF @ 50 mL goal rate as tolerated. Goal rate will provide 1,440 kcals, 90g Pro, and 973 mL free H2O per 24 hrs 3) Advance to low fiber diet when medically feasible 4) Continue current plan of care Expected Outcomes/Goals: 1) diet to advance 2) appetite and labs to improve 3) f/u in 3 days SANDRA WHITT MD Oct 02, 2024 18:35
[2024-10-03] VITALS (7 sets, daily range): BP systolic 105–132; BP diastolic 66–78; PULSE 50–77; RESP 16–20; TEMP 97.2–98.2; O2SAT 97–100
[2024-10-03] MEDS: PIPERACILLIN-TAZOB 3.375GM 100 ML IV SCH ×2 (00:30→22:00)
[2024-10-03 09:56] LABS: Basophils # (auto) 0.1 10 ^3/uL (0-0.2); Basophils % (auto) 0.7 % (0.0-2.0); Eosinophils # (auto) 0.1 10 ^3/uL (0-0.8); Eosinophils % (auto) 0.8 % (0.0-7.0); Hematocrit 40.6 % (41.0-53.0); Hemoglobin 13.8 g/dL (13.5-17.5); Lymphocytes # (auto) 1.5 10 ^3/uL (0.4-5.4); Lymphocytes % (auto) 16.2 % (10.0-50.0); Mean Corpuscular Hemoglobin 27.6 pg (28.0-32.0); Mean Corpuscular Volume 81.1 fL (80.0-100.0); Monocytes # (auto) 0.5 10 ^3/uL (0-1.3); Neutrophils # (auto) 7.1 10 ^3/uL (1.6-8.6); Neutrophils % (auto) 77.3 % (37.0-80.0); Nucleated Red Blood Cells % 0.1 %; Platelet Count (auto) 362 10^3/uL (140-450); Red Cell Distribution Width 12.5 % (11.8-14.3); White Blood Cell 9.2 10^3/uL (4.4-10.8)
[2024-10-03 10:02] LABS: Anion Gap 12 (5-15); Carbon Dioxide 24 mmol/L (20-31); Chloride 105 mmol/L (98-107); Sodium 141 mmol/L (136-145)
[2024-10-03 10:03] LABS: Calcium 9.7 mg/dL (8.7-10.4); Potassium 3.4 mmol/L (3.5-5.1)
[2024-10-03 10:08] LABS: BUN/Creatinine Ratio 7.5 (10.0-20.0); Glucose 83 mg/dL (74-106)
[2024-10-03 10:12] LABS: Blood Urea Nitrogen 5 mg/dL (9-23)
[2024-10-03] MEDS: POTASSIUM CHL 20MEQ/100ML 100 ML IV ONE (11:15)
[2024-10-03 11:58] LABS: INR 1.34 (0.9-1.15); Prothrombin Time 13.8 sec (9.3-11.8)
--- NOTE | 2024-10-03 17:17 | DVHPN2 ---
Progress Note Date Seen: Oct 03, 2024 Medical Necessity Reason Pt with a Central, PICC or Fol: No Objective vital signs Vital Sign Date Time Temp Pulse Resp B/P (MAP) Pulse Ox O2 Delivery O2 Flow Rate FiO2 10/03/24 17:02 98.1 77 16 118/70 (86) 97 98.1 10/03/24 08:00 Room Air* 0 21 Total Intake and Output 10/02/24 10/02/24 10/03/24 15:00 23:00 07:00 Intake Total 200 ml 880 ml 100 ml Balance 200 ml 880 ml 100 ml medications Current Medications Medications Dose Ordered Sig/Yared Route Start Time Stop Time Status Last Admin Dose Admin Sodium Chloride 10 ml Q8HR IV 09/27/24 06:00 10/03/24 14:04 10 ML Acetaminophen 650 mg Q6HP PRN PO 09/27/24 01:15 Morphine Sulfate 2 mg Q4HPRN PRN IV 09/27/24 01:15 10/02/24 06:39 2 MG Pantoprazole Sodium 40 mg DAILY IV 09/27/24 10:00 10/03/24 09:49 40 MG Metronidazole 100 ml @ 100 mls/hr Q8HR IV 09/27/24 06:00 10/03/24 13:49 100 MLS/HR Piperacillin Sod/ Tazobactam Sod 100 ml @ 25 mls/hr Q6H IV 10/03/24 01:00 10/03/24 13:00 25 MLS/HR laboratory and microbiology Laboratory Tests 10/03/24 09:15 Test 10/03/24 09:15 Range/Units Serum Glucose 83 74-106 mg/dL Microbiology Date/Time Source Procedure Growth Status 09/27/24 06:30 Nose MRSA Screen - Final Complete 09/26/24 23:35 Blood Blood Culture - Final NO GROWTH AFTER 5 DAYS OF INCUBATION. Complete 09/26/24 22:30 Voided Urine Urine Culture - Final Complete Problem List/Assessment/Plan Problem List/Assessment/Plan AFEBRILE VSS LLQ PAIN LESS KUB NO FREE AIR REPEAT CT SCAN ABD PELVIS NO DRAINABLE ABSCESS KEEP NPO IV ABX NURSE AT BEDSIDE CONSIDER HOME TPN AND ABX Plan discussed with: Patient My Orders My Orders Orders - SANDRA WHITT MD Procedure Category Date Status Time Npo (Nothing By DIET 10/03/24 Transmitted Mouth) Diet Breakfast Dietary Evaluation Review Comments: 1) If patient remains NPO for more than 7 days, consider TPN to meet at least 75% of estimated needs 2) If GI route is preferred, consider Vital AF @ 50 mL goal rate as tolerated. Goal rate will provide 1,440 kcals, 90g Pro, and 973 mL free H2O per 24 hrs 3) Advance to low fiber diet when medically feasible 4) Continue current plan of care Expected Outcomes/Goals: 1) diet to advance 2) appetite and labs to improve 3) f/u in 3 days SANDRA WHITT MD Oct 03, 2024 17:17
[2024-10-03] MEDS ORDERED: DEXTROSE (50%) 50ML SYRG IV SCH (18:15)
[2024-10-03] MEDS ORDERED: TPN PER PHARMACY 0 ML IV SCH (18:15)
--- NOTE | 2024-10-03 19:28 | DVHPNRES ---
Progress Note Date Seen: Oct 03, 2024 Resident Creating Document: PARAG EASLEY RESIDENT Medical Necessity Reason Pt with a Central, PICC or Fol: No Subjective Review of Systems Patient is a 33-year-old male with past medical history of diverticulosis, who comes in due to abdominal pain. According to the patient, since yesterday he has been having increasing abdominal pain which has progressively worsened until he felt like he could not tolerated which is what prompted this visit to the hospital. Of note, patient was recently admitted to the [facility] and treated for diverticulitis with antibiotics, which patient notes that he completed the course and adhere to the dietary recommendations given to him discharge. Patient notes moving makes his pain worse, pain is relieved by morphine. Per patient, 2 years ago he completed a colonoscopy when he was told he has diverticulosis with diverticulitis at the time in 2019. After that patient had another episode of diverticulitis in 2022, after which he was told he might need elective colectomy in the outpatient, however, patient notes that he has been hesitant in intimidated by the procedure. Patient notes that the current pain he is feeling a similar to the pain he felt when he had an episode of diverticulitis with abscess in 2022 which was subsequently drained. CT abdomen pelvis showed diverticulitis in the descending left colon and sigmoid colon with a large inflammatory mass noted extending in the midabdomen 8.2 x 6.8 cm. Small bubbles of air in the soft tissues this may be free air findings consistent with diverticulitis area measures 8.2 x 6.8 cm., this will be patient's 3rd episode of diverticulitis in the last 5 years. Past surgical history: Denies Home medications: None Past Hospitalization: Discharged on 09/21/2024 sigmoid diverticulitis Social & Personal history: Patient lives with and kids. Denies smoking. Uses alcohol occasionally. Uses marijuana daily, denies using any other drugs. Allergies: None Patient seen and examined at bedside. Patient is alert and oriented to time, place person and responding to all questions. Patient reports improved pain. Discharge was held as patient needs home health for TPN and a PICC line instead of the midline. Objective vital signs Vital Sign Date Time Temp Pulse Resp B/P (MAP) Pulse Ox O2 Delivery O2 Flow Rate FiO2 10/03/24 17:02 98.1 77 16 118/70 (86) 97 98.1 10/03/24 08:00 Room Air* 0 21 Total Intake and Output 10/02/24 10/02/24 10/03/24 15:00 23:00 07:00 Intake Total 200 ml 880 ml 100 ml Balance 200 ml 880 ml 100 ml medications Current Medications Medications Dose Ordered Sig/Yared Route Start Time Stop Time Status Last Admin Dose Admin Sodium Chloride 10 ml Q8HR IV 09/27/24 06:00 10/03/24 14:04 10 ML Acetaminophen 650 mg Q6HP PRN PO 09/27/24 01:15 Morphine Sulfate 2 mg Q4HPRN PRN IV 09/27/24 01:15 10/02/24 06:39 2 MG Pantoprazole Sodium 40 mg DAILY IV 09/27/24 10:00 10/03/24 09:49 40 MG Metronidazole 100 ml @ 100 mls/hr Q8HR IV 09/27/24 06:00 10/03/24 13:49 100 MLS/HR Piperacillin Sod/ Tazobactam Sod 100 ml @ 25 mls/hr Q6H IV 10/03/24 01:00 10/03/24 13:00 25 MLS/HR Amino Acids 0 ml @ 0 mls/hr PER PHARMACY IV 10/03/24 18:15 Diagnostic Test (Pha) 1 strip Q6HR 10/04/24 00:00 Insulin Human Regular FOLLOW SLIDING SCALE Q6HR SC 10/04/24 00:00 Dextrose 50 ml UD IV 10/03/24 18:15 Amino Acids 1,000 ml @ 41 mls/hr DAILY@2200 IV 10/03/24 22:00 10/04/24 21:59 Examination General Appearance: Cooperative. Well developed. Well nourished. NAD Head Exam: Normal inspection Neck Exam: Normal inspection. Non-tender. Normal alignment Pulmonary/Respiratory: Chest non-tender. Clear bilateral breath sounds, no crackles, no wheezing. Cardiovascular/Chest: Regular rate and rhythm. No murmurs. No JVD. Peripheral Pulses: 2+ Radial (R). 2+ Radial (L). 2+ Pedal (R). 2+ Pedal (L) Abdominal Exam: Normal bowel sounds. Soft. Generalized abdominal tenderness to palpation, more pronounced on the left. no visible veins, Nontender. No hepatospenomegaly. No masses Ankle Exam: Negative ankle edema Lower extremities: Negative lower extremity edema Neuro/Mental Status: A&O x4. Coherent. Thoughts/Psych: Normal thought pattern. Appropriate mood and affect. Good judgement and insight Skin Exam: Normal inspection. Normal color. Warm. Dry laboratory and microbiology Laboratory Tests 10/03/24 09:15 Test 10/03/24 09:15 Range/Units Serum Glucose 83 74-106 mg/dL Microbiology Date/Time Source Procedure Growth Status 09/27/24 06:30 Nose MRSA Screen - Final Complete 09/26/24 23:35 Blood Blood Culture - Final NO GROWTH AFTER 5 DAYS OF INCUBATION. Complete 09/26/24 22:30 Voided Urine Urine Culture - Final Complete Labs and/or images reviewed: Labs reviewed by me, Image(s) reviewed by me Problem List/Assessment/Plan Problem List/Assessment/Plan Sepsis due to diverticulitis Diverticulitis complicated with probable abscess Acute intractable abdominal pain due to above - CT abdomen pelvis: Diverticulitis in the descending left colon and sigmoid colon with a large inflammatory mass noted extending in the mid abdomen for 8.2 by 6.8 cm. There are small bubbles of air in the soft tissues this may be free air findings consistent with diverticulitis area measures 8.2 by 6.8 cm. - serum lipase 30 - IV NS 2 L bolus, currently on IV D5 with NS at 100 cc/hour - IV Zosyn, IV metronidazole - acetaminophen 650 mg as needed - surgery consulted - NPO - KUB: No evidence of bowel obstruction - repeat CT abdomen pelvis with contrast: Persistent findings of diverticulitis with extensive inflammatory changes in the pericolonic soft tissues. There is no drainable fluid collections. Small 13-14 mm collection of gas is noted in the soft tissues which may be in the bowel or pericolonic soft tissues. There is no drainable fluid collections. Contrast is noted traversing this area of inflamed tissue with no extravasation into the soft tissues. Oral contrast noted in the rectosigmoid tissues distal to the area of diverticulitis - we will set up home health for IV antibiotics once cleared from surgery perspective Marijuana dependence Obesity - counseled PUD prophylaxis: protonix 40mg Goals of care: Full code, discussed for >16 minutes on 09/27/2024 Plan discussed with patient Plan discussed with Dr. Stewart Plan discussed with: Patient, Spouse, Other (RN) My Orders My Orders Orders - PARAG EASLEY RESIDENT Procedure Category Date Status Time * Picc Line Consult CONS 10/03/24 Transmitted 10:26 * Director Of Online Education CONS 10/03/24 Transmitted Consult Tpn Per Pharmacy [facility] 10/03/24 In Process 13:49 Tpn Per Pharmacy PHA 10/03/24 In Process 18:15 Glucose Blood PHA 10/04/24 In Process (Accu-Chek Comfort 00:00 Insulin R (Human) PHA 10/04/24 In Process (Insulin R) 00:00 Dextrose 50% Syringe PHA 10/03/24 In Process 18:15 Amino Acid Infusion PHA 10/03/24 In Process In D5w (Clinimix 4.2 22:00 Tpn Per Pharmacy [facility] 10/03/24 In Process 22:00 Comprehensive LAB 10/04/24 Verified Metabolic Panel 04:00 Magnesium LAB 10/04/24 Verified 04:00 Phosphorus LAB 10/04/24 Verified 04:00 Complete Blood Count LAB 10/04/24 Verified 04:00 Dietary Evaluation Review Comments: 1) If patient remains NPO for more than 7 days, consider TPN to meet at least 75% of estimated needs 2) If GI route is preferred, consider Vital AF @ 50 mL goal rate as tolerated. Goal rate will provide 1,440 kcals, 90g Pro, and 973 mL free H2O per 24 hrs 3) Advance to low fiber diet when medically feasible 4) Continue current plan of care Expected Outcomes/Goals: 1) diet to advance 2) appetite and labs to improve 3) f/u in 3 days Date of Service: Oct 03, 2024 Billing Provider: SHANTELLE STEWART MD Common Visit Codes: [id number] INP/OBS CARE(HIGH) PARAG EASLEY RESIDENT Oct 03, 2024 19:28 SHANTELLE STEWART MD Oct 09, 2024 15:56
[2024-10-03] MEDS: AMINO ACID INFUSION IN D5W 1,000 ML IV SCH (21:59)
[2024-10-04] MEDS: InsuLIN REG 1unit/0.01ml Soln (100units/ml) SC SCH
[2024-10-04] MEDS: ACCU-CHEK COMFORT CURVE STRIP VI SCH (00:21)
[2024-10-04 01:00] VITALS: BP 105/55; PULSE 57; RESP 18; TEMP 98.2; O2SAT 97
[2024-10-04 05:00] VITALS: BP 104/64; PULSE 61; RESP 16; TEMP 97.7; O2SAT 100
[2024-10-04 06:53] LABS: Basophils # (auto) 0 10 ^3/uL (0-0.2); Basophils % (auto) 0.6 % (0.0-2.0); Eosinophils # (auto) 0.1 10 ^3/uL (0-0.8); Hemoglobin 13.3 g/dL (13.5-17.5); Lymphocytes # (auto) 1.8 10 ^3/uL (0.4-5.4); Neutrophils # (auto) 5.5 10 ^3/uL (1.6-8.6); Red Cell Distribution Width 12.6 % (11.8-14.3)
[2024-10-04 06:55] LABS: Eosinophils % (auto) 0.9 % (0.0-7.0); Hematocrit 39.8 % (41.0-53.0); Lymphocytes % (auto) 22.6 % (10.0-50.0); Mean Corpuscular Hemoglobin 27.1 pg (28.0-32.0); Mean Corpuscular Hgb Conc. 33.3 g/dL (32.0-36.0); Mean Corpuscular Volume 81.3 fL (80.0-100.0); Monocytes # (auto) 0.5 10 ^3/uL (0-1.3); Monocytes % (auto) 6.7 % (0.0-12.0); Neutrophils % (auto) 69.2 % (37.0-80.0); Platelet Count (auto) 338 10^3/uL (140-450); Red Blood Cells 4.89 10^6/uL (4.5-5.90); White Blood Cell 7.9 10^3/uL (4.4-10.8)
[2024-10-04 07:12] LABS: Alanine Aminotransferase 17 U/L (7-40); Albumin 4.3 g/dL (3.2-4.8); Alkaline Phosphatase 59 U/L (46-116); Anion Gap 10 (5-15); Aspartate Aminotransferase 21 U/L (13-40); BUN/Creatinine Ratio 7.8 (10.0-20.0); Calcium 9.5 mg/dL (8.7-10.4); Carbon Dioxide 22 mmol/L (20-31); Chloride 107 mmol/L (98-107); Glucose 86 mg/dL (74-106); Magnesium 1.9 mg/dL (1.6-2.6); Sodium 139 mmol/L (136-145); Total Protein 6.9 g/dL (5.7-8.2)
[2024-10-04 07:16] LABS: Bilirubin, Total 0.3 mg/dL (0.2-1.0); Blood Urea Nitrogen 5 mg/dL (9-23); Potassium 3.3 mmol/L (3.5-5.1)
[2024-10-04 08:34] VITALS: BP 113/72; PULSE 62; RESP 18; TEMP 98.2; O2SAT 95
[2024-10-04] MEDS: LIDOCAINE 1% (LOCAL ANESTH.) PF 5ml SDV ID ONE (10:00)
[2024-10-04] MEDS: POTASSIUM CHL 20MEQ/100ML 100 ML IV ONE ×2 (10:31→12:16)
[2024-10-04] MEDS: SODIUM CHLOR 0.9% PF (SALINE LOCK) 10ML VIAL/SYR IV SCH (10:37)
[2024-10-04 13:00] VITALS: BP 131/94; PULSE 62; RESP 18; TEMP 98; O2SAT 93
--- NOTE | 2024-10-04 14:29 | DVHPN2 ---
Progress Note Date Seen: Oct 04, 2024 Medical Necessity Reason Pt with a Central, PICC or Fol: No Objective vital signs Vital Sign Date Time Temp Pulse Resp B/P (MAP) Pulse Ox O2 Delivery O2 Flow Rate FiO2 10/04/24 13:00 98.0 62 18 131/94 (106) 93 98.0 10/04/24 08:00 Room Air* 0 21 Total Intake and Output 10/03/24 10/03/24 10/04/24 15:00 23:00 07:00 Intake Total 300 ml 200 ml 0 ml Balance 300 ml 200 ml 0 ml medications Current Medications Medications Dose Ordered Sig/Yared Route Start Time Stop Time Status Last Admin Dose Admin Acetaminophen 650 mg Q6HP PRN PO 09/27/24 01:15 Morphine Sulfate 2 mg Q4HPRN PRN IV 09/27/24 01:15 10/02/24 06:39 2 MG Pantoprazole Sodium 40 mg DAILY IV 09/27/24 10:00 10/04/24 10:31 40 MG Metronidazole 100 ml @ 100 mls/hr Q8HR IV 09/27/24 06:00 10/04/24 14:00 100 MLS/HR Amino Acids 0 ml @ 0 mls/hr PER PHARMACY IV 10/03/24 18:15 Diagnostic Test (Pha) 1 strip Q6HR 10/04/24 00:00 10/04/24 12:16 1 STRIP Insulin Human Regular FOLLOW SLIDING SCALE Q6HR SC 10/04/24 00:00 Dextrose 50 ml UD IV 10/03/24 18:15 Amino Acids 1,000 ml @ 41 mls/hr DAILY@2200 IV 10/03/24 22:00 10/04/24 21:59 10/03/24 21:59 41 MLS/HR Piperacillin Sod/ Tazobactam Sod 100 ml @ 25 mls/hr Q6H IV 10/03/24 22:00 10/04/24 10:30 25 MLS/HR Sodium Chloride 10 ml QSHIFT@10,22 IV 10/04/24 10:00 10/04/24 10:37 10 ML Sodium Acetate 20 meq/Potassium Acetate 30 meq/ Potassium Phosphate 40 meq/ Magnesium Sulfate 12 meq/ Multivitamins 10 ml/Chromium/ Copper/Manganese/ Zinc 1 ml/Amino Acids/Dextrose/ Purified Water 1,548.0909 ml @ 64 mls/hr [id number] IV 10/04/24 22:00 10/05/24 21:59 laboratory and microbiology Laboratory Tests 10/04/24 04:56 Test 10/04/24 04:56 Range/Units Serum Glucose 86 74-106 mg/dL Microbiology Date/Time Source Procedure Growth Status 09/27/24 06:30 Nose MRSA Screen - Final Complete 09/26/24 23:35 Blood Blood Culture - Final NO GROWTH AFTER 5 DAYS OF INCUBATION. Complete 09/26/24 22:30 Voided Urine Urine Culture - Final Complete Problem List/Assessment/Plan Problem List/Assessment/Plan AFEBRILE VSS LLQ PAIN LESS KEEP NPO IV ABX NURSE AT BEDSIDE CONSIDER HOME TPN AND ABX CLEARED FOR DISCHARGE INSTRUCTIONS RE DIET ACTIVITY F/UP GIVEN REPEAT CT SCAN ABD PELVIS IN 1 WEEK NURSE AT BEDSIDE Plan discussed with: Patient Dietary Evaluation Review Comments: 1) If patient remains NPO for more than 7 days, consider TPN to meet at least 75% of estimated needs 2) If GI route is preferred, consider Vital AF @ 50 mL goal rate as tolerated. Goal rate will provide 1,440 kcals, 90g Pro, and 973 mL free H2O per 24 hrs 3) Advance to low fiber diet when medically feasible 4) Continue current plan of care Expected Outcomes/Goals: 1) diet to advance 2) appetite and labs to improve 3) f/u in 3 days SANDRA WHITT MD Oct 04, 2024 14:28
[2024-10-04 16:35] VITALS: BP 127/99; PULSE 83; RESP 18; TEMP 97.8; O2SAT 98
--- NOTE | 2024-10-04 18:25 | DVHPNRES ---
Progress Note Date Seen: Oct 04, 2024 Resident Creating Document: PARAG EASLEY RESIDENT Medical Necessity Reason Pt with a Central, PICC or Fol: No Subjective Review of Systems Patient is a 33-year-old male with past medical history of diverticulosis, who comes in due to abdominal pain. According to the patient, since yesterday he has been having increasing abdominal pain which has progressively worsened until he felt like he could not tolerated which is what prompted this visit to the hospital. Of note, patient was recently admitted to the [facility] and treated for diverticulitis with antibiotics, which patient notes that he completed the course and adhere to the dietary recommendations given to him discharge. Patient notes moving makes his pain worse, pain is relieved by morphine. Per patient, 2 years ago he completed a colonoscopy when he was told he has diverticulosis with diverticulitis at the time in 2019. After that patient had another episode of diverticulitis in 2022, after which he was told he might need elective colectomy in the outpatient, however, patient notes that he has been hesitant in intimidated by the procedure. Patient notes that the current pain he is feeling a similar to the pain he felt when he had an episode of diverticulitis with abscess in 2022 which was subsequently drained. CT abdomen pelvis showed diverticulitis in the descending left colon and sigmoid colon with a large inflammatory mass noted extending in the midabdomen 8.2 x 6.8 cm. Small bubbles of air in the soft tissues this may be free air findings consistent with diverticulitis area measures 8.2 x 6.8 cm., this will be patient's 3rd episode of diverticulitis in the last 5 years. Past surgical history: Denies Home medications: None Past Hospitalization: Discharged on 09/21/2024 sigmoid diverticulitis Social & Personal history: Patient lives with and kids. Denies smoking. Uses alcohol occasionally. Uses marijuana daily, denies using any other drugs. Allergies: None Patient seen and examined at bedside. Patient is alert and oriented to time, place person and responding to all questions. Patient reports improved pain. Discharge was held as patient needs home health for TPN and a PICC line instead of the midline. Dietary consult placed for home TPN optimization. Objective vital signs Vital Sign Date Time Temp Pulse Resp B/P (MAP) Pulse Ox O2 Delivery O2 Flow Rate FiO2 10/04/24 16:35 97.8 83 18 127/99 (108) 98 97.8 10/04/24 08:00 Room Air* 0 21 Total Intake and Output 10/03/24 10/03/24 10/04/24 15:00 23:00 07:00 Intake Total 300 ml 200 ml 0 ml Balance 300 ml 200 ml 0 ml medications Current Medications Medications Dose Ordered Sig/Yared Route Start Time Stop Time Status Last Admin Dose Admin Acetaminophen 650 mg Q6HP PRN PO 09/27/24 01:15 Morphine Sulfate 2 mg Q4HPRN PRN IV 09/27/24 01:15 10/02/24 06:39 2 MG Pantoprazole Sodium 40 mg DAILY IV 09/27/24 10:00 10/04/24 10:31 40 MG Metronidazole 100 ml @ 100 mls/hr Q8HR IV 09/27/24 06:00 10/04/24 14:00 100 MLS/HR Amino Acids 0 ml @ 0 mls/hr PER PHARMACY IV 10/03/24 18:15 Diagnostic Test (Pha) 1 strip Q6HR 10/04/24 00:00 10/04/24 17:41 1 STRIP Insulin Human Regular FOLLOW SLIDING SCALE Q6HR SC 10/04/24 00:00 Dextrose 50 ml UD IV 10/03/24 18:15 Amino Acids 1,000 ml @ 41 mls/hr DAILY@2200 IV 10/03/24 22:00 10/04/24 21:59 10/03/24 21:59 41 MLS/HR Piperacillin Sod/ Tazobactam Sod 100 ml @ 25 mls/hr Q6H IV 10/03/24 22:00 10/04/24 16:46 25 MLS/HR Sodium Chloride 10 ml QSHIFT@10,22 IV 10/04/24 10:00 10/04/24 10:37 10 ML Sodium Acetate 20 meq/Potassium Acetate 30 meq/ Potassium Phosphate 40 meq/ Magnesium Sulfate 12 meq/ Multivitamins 10 ml/Chromium/ Copper/Manganese/ Zinc 1 ml/Amino Acids/Dextrose/ Purified Water 1,548.0909 ml @ 64 mls/hr [id number] IV 10/04/24 22:00 10/05/24 21:59 laboratory and microbiology Laboratory Tests 10/04/24 04:56 Test 10/04/24 04:56 Range/Units Serum Glucose 86 74-106 mg/dL Microbiology Date/Time Source Procedure Growth Status 09/27/24 06:30 Nose MRSA Screen - Final Complete 09/26/24 23:35 Blood Blood Culture - Final NO GROWTH AFTER 5 DAYS OF INCUBATION. Complete 09/26/24 22:30 Voided Urine Urine Culture - Final Complete Problem List/Assessment/Plan Problem List/Assessment/Plan Sepsis due to diverticulitis Diverticulitis complicated with probable abscess Acute intractable abdominal pain due to above - CT abdomen pelvis: Diverticulitis in the descending left colon and sigmoid colon with a large inflammatory mass noted extending in the mid abdomen for 8.2 by 6.8 cm. There are small bubbles of air in the soft tissues this may be free air findings consistent with diverticulitis area measures 8.2 by 6.8 cm. - serum lipase 30 - IV NS 2 L bolus, currently on IV D5 with NS at 100 cc/hour - IV Zosyn, IV metronidazole - acetaminophen 650 mg as needed - surgery consulted - NPO - KUB: No evidence of bowel obstruction - repeat CT abdomen pelvis with contrast: Persistent findings of diverticulitis with extensive inflammatory changes in the pericolonic soft tissues. There is no drainable fluid collections. Small 13-14 mm collection of gas is noted in the soft tissues which may be in the bowel or pericolonic soft tissues. There is no drainable fluid collections. Contrast is noted traversing this area of inflamed tissue with no extravasation into the soft tissues. Oral contrast noted in the rectosigmoid tissues distal to the area of diverticulitis - we will set up home health for IV antibiotics once cleared from surgery perspective Marijuana dependence Obesity - counseled PUD prophylaxis: protonix 40mg Goals of care: Full code, discussed for >16 minutes on 09/27/2024 Plan discussed with patient Plan discussed with Dr. Stewart Plan discussed with: Patient My Orders My Orders Orders - PARAG EASLEY RESIDENT Procedure Category Date Status Time Nursing Protocol Picc [facility] 10/04/24 In Process 09:57 Change Dressing Prn [facility] 10/04/24 In Process 09:57 Sodium Chloride Lock PHA 10/04/24 In Process (Saline Lock Ns) 10:00 Do Not Use Picc For [facility] 10/04/24 In Process Blood Cult 09:57 May Draw Blood From [facility] 10/04/24 In Process Picc 09:57 Ok To Use Picc [facility] 10/04/24 In Process 09:57 Change Picc Dressing [facility] 10/04/24 In Process Q7 Days 09:57 Amino Acid PHA 10/04/24 In Process Infusion... W/Sodium 22:00 Renal Function Test LAB 10/05/24 Verified 06:00 Magnesium LAB 10/05/24 Verified 06:00 Tpn Per Pharmacy [facility] 10/04/24 In Process 22:00 * Dietary Consult CONS 10/04/24 Transmitted 10:56 Triglycerides LAB 10/05/24 Verified 06:00 Dietary Evaluation Review Comments: 1) If patient remains NPO for more than 7 days, consider TPN to meet at least 75% of estimated needs 2) If GI route is preferred, consider Vital AF @ 50 mL goal rate as tolerated. Goal rate will provide 1,440 kcals, 90g Pro, and 973 mL free H2O per 24 hrs 3) Advance to low fiber diet when medically feasible 4) Continue current plan of care Expected Outcomes/Goals: 1) diet to advance 2) appetite and labs to improve 3) f/u in 3 days Date of Service: Oct 04, 2024 Billing Provider: SHANTELLE STEWART MD Common Visit Codes: [id number] INP/OBS CARE(HIGH) PARAG EASLEY RESIDENT Oct 04, 2024 18:25 SHANTELLE STEWART MD Oct 09, 2024 15:57
[2024-10-04 21:00] VITALS: BP 119/71; PULSE 62; RESP 18; TEMP 97.9; O2SAT 98
[2024-10-04] MEDS: PPN PER PHARMACY IV NR (21:50)
[2024-10-05 01:00] VITALS: BP 99/60; PULSE 55; RESP 18; TEMP 97.6; O2SAT 98
[2024-10-05 05:00] VITALS: BP 116/64; PULSE 68; RESP 18; TEMP 97.3; O2SAT 98
[2024-10-05 06:52] LABS: Calcium 10.2 mg/dL (8.7-10.4)
[2024-10-05 06:57] LABS: BUN/Creatinine Ratio 10.7 (10.0-20.0); Magnesium 2.1 mg/dL (1.6-2.6)
[2024-10-05 06:59] LABS: Phosphorus 3.4 mg/dL (2.4-5.1)
[2024-10-05 07:05] LABS: Albumin 4.8 g/dL (3.2-4.8); Potassium 3.5 mmol/L (3.5-5.1)
[2024-10-05 08:00] VITALS: BP 97/73; PULSE 112; RESP 20; TEMP 97.7; O2SAT 100
[2024-10-05] MEDS: PPN PER PHARMACY IV NR ×3 (09:16→16:31)
[2024-10-05 13:00] VITALS: BP 120/73; PULSE 112; RESP 20; TEMP 98; O2SAT 100
[2024-10-05 16:21] VITALS: BP 113/77; PULSE 104; RESP 20; TEMP 97.5; O2SAT 95
--- NOTE | 2024-10-05 17:10 | DVHPNRES ---
Progress Note Date Seen: Oct 05, 2024 Resident Creating Document: PARAG EASLEY RESIDENT Medical Necessity Reason Pt with a Central, PICC or Fol: No Subjective Review of Systems Patient is a 33-year-old male with past medical history of diverticulosis, who comes in due to abdominal pain. According to the patient, since yesterday he has been having increasing abdominal pain which has progressively worsened until he felt like he could not tolerated which is what prompted this visit to the hospital. Of note, patient was recently admitted to the [facility] [place] and treated for diverticulitis with antibiotics, which patient notes that he completed the course and adhere to the dietary recommendations given to him discharge. Patient notes moving makes his pain worse, pain is relieved by morphine. Per patient, 2 years ago he completed a colonoscopy when he was told he has diverticulosis with diverticulitis at the time in 2019. After that patient had another episode of diverticulitis in 2022, after which he was told he might need elective colectomy in the outpatient, however, patient notes that he has been hesitant in intimidated by the procedure. Patient notes that the current pain he is feeling a similar to the pain he felt when he had an episode of diverticulitis with abscess in 2022 which was subsequently drained. CT abdomen pelvis showed diverticulitis in the descending left colon and sigmoid colon with a large inflammatory mass noted extending in the midabdomen 8.2 x 6.8 cm. Small bubbles of air in the soft tissues this may be free air findings consistent with diverticulitis area measures 8.2 x 6.8 cm., this will be patient's 3rd episode of diverticulitis in the last 5 years. Past surgical history: Denies Home medications: None Past Hospitalization: Discharged on 09/21/2024 sigmoid diverticulitis Social & Personal history: Patient lives with and kids. Denies smoking. Uses alcohol occasionally. Uses marijuana daily, denies using any other drugs. Allergies: None Patient seen and examined at bedside. Patient is alert and oriented to time, place person and responding to all questions. Patient reports improved pain. Patient was started on TPN, tolerating it well. Objective vital signs Vital Sign Date Time Temp Pulse Resp B/P (MAP) Pulse Ox O2 Delivery O2 Flow Rate FiO2 10/05/24 16:21 97.5 104 20 113/77 (89) 95 97.5 10/05/24 08:00 Room Air* 0 21 Total Intake and Output 10/04/24 10/04/24 10/05/24 15:00 23:00 07:00 Intake Total 300 ml 1200 ml 200 ml Balance 300 ml 1200 ml 200 ml medications Current Medications Medications Dose Ordered Sig/Yared Route Start Time Stop Time Status Last Admin Dose Admin Acetaminophen 650 mg Q6HP PRN PO 09/27/24 01:15 Morphine Sulfate 2 mg Q4HPRN PRN IV 09/27/24 01:15 10/02/24 06:39 2 MG Pantoprazole Sodium 40 mg DAILY IV 09/27/24 10:00 10/05/24 09:52 40 MG Metronidazole 100 ml @ 100 mls/hr Q8HR IV 09/27/24 06:00 10/05/24 14:22 100 MLS/HR Amino Acids 0 ml @ 0 mls/hr PER PHARMACY IV 10/03/24 18:15 Diagnostic Test (Pha) 1 strip Q6HR 10/04/24 00:00 10/05/24 12:08 1 STRIP Insulin Human Regular FOLLOW SLIDING SCALE Q6HR SC 10/04/24 00:00 Dextrose 50 ml UD IV 10/03/24 18:15 Piperacillin Sod/ Tazobactam Sod 100 ml @ 25 mls/hr Q6H IV 10/03/24 22:00 10/05/24 16:26 25 MLS/HR Sodium Chloride 10 ml QSHIFT@10,22 IV 10/04/24 10:00 10/05/24 09:52 10 ML Sodium Phosphate 10 meq/Potassium Chloride 30 meq/ Potassium Acetate 30 meq/Magnesium Sulfate 10 meq/ Multivitamins 10 ml/Chromium/ Copper/Manganese/ Zinc 1 ml/Amino Acids/Dextrose/ Purified Water 1,546 ml @ 60 mls/hr [id number] IV 10/05/24 22:00 10/06/24 21:59 Sodium Acetate 20 meq/Potassium Acetate 30 meq/ Potassium Phosphate 40 meq/ Magnesium Sulfate 12 meq/ Multivitamins 10 ml/Chromium/ Copper/Manganese/ Zinc 1 ml/Amino Acids/Dextrose/ Purified Water 1,548.0909 ml @ 40 mls/hr Q30H IV 10/05/24 16:30 10/05/24 21:59 10/05/24 16:31 40 MLS/HR Examination General Appearance: Cooperative. Well developed. Well nourished. NAD Head Exam: Normal inspection Neck Exam: Normal inspection. Non-tender. Normal alignment Pulmonary/Respiratory: Chest non-tender. Clear bilateral breath sounds, no crackles, no wheezing. Cardiovascular/Chest: Tachycardia and rhythm. No murmurs. No JVD. Peripheral Pulses: 2+ Radial (R). 2+ Radial (L). 2+ Pedal (R). 2+ Pedal (L) Abdominal Exam: Normal bowel sounds. Soft. normal abdomen, no visible veins, mild soreness/tenderness to palpation in mid to left abdomen. No hepatospenomegaly. No masses Ankle Exam: Negative ankle edema Lower extremities: Negative lower extremity edema Neuro/Mental Status: A&O x4. Coherent. Thoughts/Psych: Normal thought pattern. Appropriate mood and affect. Good judgement and insight Skin Exam: Normal inspection. Normal color. Warm. Dry laboratory and microbiology Laboratory Tests 10/05/24 05:24 10/04/24 04:56 Test 10/05/24 05:24 Range/Units Serum Glucose 118 H 74-106 mg/dL Microbiology Date/Time Source Procedure Growth Status 09/27/24 06:30 Nose MRSA Screen - Final Complete 09/26/24 23:35 Blood Blood Culture - Final NO GROWTH AFTER 5 DAYS OF INCUBATION. Complete 09/26/24 22:30 Voided Urine Urine Culture - Final Complete Labs and/or images reviewed: Labs reviewed by me, Image(s) reviewed by me Problem List/Assessment/Plan Problem List/Assessment/Plan Sepsis due to diverticulitis Diverticulitis complicated with probable abscess Acute intractable abdominal pain due to above - CT abdomen pelvis: Diverticulitis in the descending left colon and sigmoid colon with a large inflammatory mass noted extending in the mid abdomen for 8.2 by 6.8 cm. There are small bubbles of air in the soft tissues this may be free air findings consistent with diverticulitis area measures 8.2 by 6.8 cm. - serum lipase 30 - IV NS 2 L bolus, currently on IV D5 with NS at 100 cc/hour - IV Zosyn, IV metronidazole - acetaminophen 650 mg as needed - surgery consulted - KUB: No evidence of bowel obstruction - repeat CT abdomen pelvis with contrast: Persistent findings of diverticulitis with extensive inflammatory changes in the pericolonic soft tissues. There is no drainable fluid collections. Small 13-14 mm collection of gas is noted in the soft tissues which may be in the bowel or pericolonic soft tissues. There is no drainable fluid collections. Contrast is noted traversing this area of inflamed tissue with no extravasation into the soft tissues. Oral contrast noted in the rectosigmoid tissues distal to the area of diverticulitis - we will set up home health for IV antibiotics once cleared from surgery perspective - started on TPN Marijuana dependence Obesity - counseled PUD prophylaxis: protonix 40mg Goals of care: Full code, discussed for >16 minutes on 09/27/2024 Plan discussed with patient Plan discussed with Dr. Stewart Plan discussed with: Patient, Other (RN) My Orders My Orders Orders - PARAG EASLEY Procedure Category Date Status Time * Bakery Team Member CONS 10/05/24 Transmitted Consult Amino Acid PHA 10/05/24 In Process Infusion... W/Sodium 22:00 Discharge DISCHARGE 10/05/24 Transmitted 14:04 Comprehensive LAB 10/06/24 Verified Metabolic Panel 04:00 Magnesium LAB 10/06/24 Verified 04:00 Phosphorus LAB 10/06/24 Verified 04:00 Tpn Per Pharmacy [facility] 10/05/24 In Process 22:00 * Bakery Team Member CONS 10/05/24 Transmitted Consult 14:12 Amino Acid PHA 10/05/24 In Process Infusion... W/Sodium 16:30 Dietary Evaluation Review Comments: 1) If patient remains NPO for more than 7 days, consider TPN to meet at least 75% of estimated needs 2) If GI route is preferred, consider Vital AF @ 50 mL goal rate as tolerated. Goal rate will provide 1,440 kcals, 90g Pro, and 973 mL free H2O per 24 hrs 3) Advance to low fiber diet when medically feasible 4) Continue current plan of care Expected Outcomes/Goals: 1) diet to advance 2) appetite and labs to improve 3) f/u in 3 days Date of Service: Oct 05, 2024 Billing Provider: SHANTELLE STEWART MD Common Visit Codes: 53069-SDG/OBS DISCH DAY >30min PARAG EASLEY Oct 05, 2024 17:10 SHANTELLE STEWART MD Oct 09, 2024 15:57
--- NOTE | 2024-10-05 20:09 | DVHPN2 ---
Progress Note Date Seen: Oct 05, 2024 Medical Necessity Reason Pt with a Central, PICC or Fol: No Objective vital signs Vital Sign Date Time Temp Pulse Resp B/P (MAP) Pulse Ox O2 Delivery O2 Flow Rate FiO2 10/05/24 16:21 97.5 104 20 113/77 (89) 95 97.5 10/05/24 08:00 Room Air* 0 21 Total Intake and Output 10/04/24 10/04/24 10/05/24 15:00 23:00 07:00 Intake Total 300 ml 1200 ml 200 ml Balance 300 ml 1200 ml 200 ml medications Current Medications Medications Dose Ordered Sig/Yared Route Start Time Stop Time Status Last Admin Dose Admin Acetaminophen 650 mg Q6HP PRN PO 09/27/24 01:15 Morphine Sulfate 2 mg Q4HPRN PRN IV 09/27/24 01:15 10/02/24 06:39 2 MG Pantoprazole Sodium 40 mg DAILY IV 09/27/24 10:00 10/05/24 09:52 40 MG Metronidazole 100 ml @ 100 mls/hr Q8HR IV 09/27/24 06:00 10/05/24 14:22 100 MLS/HR Amino Acids 0 ml @ 0 mls/hr PER PHARMACY IV 10/03/24 18:15 Diagnostic Test (Pha) 1 strip Q6HR 10/04/24 00:00 10/05/24 17:18 1 STRIP Insulin Human Regular FOLLOW SLIDING SCALE Q6HR SC 10/04/24 00:00 Dextrose 50 ml UD IV 10/03/24 18:15 Piperacillin Sod/ Tazobactam Sod 100 ml @ 25 mls/hr Q6H IV 10/03/24 22:00 10/05/24 16:26 25 MLS/HR Sodium Chloride 10 ml QSHIFT@10,22 IV 10/04/24 10:00 10/05/24 09:52 10 ML Sodium Phosphate 10 meq/Potassium Chloride 30 meq/ Potassium Acetate 30 meq/Magnesium Sulfate 10 meq/ Multivitamins 10 ml/Chromium/ Copper/Manganese/ Zinc 1 ml/Amino Acids/Dextrose/ Purified Water 1,546 ml @ 60 mls/hr [id number] IV 10/05/24 22:00 10/06/24 21:59 Sodium Acetate 20 meq/Potassium Acetate 30 meq/ Potassium Phosphate 40 meq/ Magnesium Sulfate 12 meq/ Multivitamins 10 ml/Chromium/ Copper/Manganese/ Zinc 1 ml/Amino Acids/Dextrose/ Purified Water 1,548.0909 ml @ 40 mls/hr Q30H IV 10/05/24 16:30 10/05/24 21:59 10/05/24 16:31 40 MLS/HR laboratory and microbiology Laboratory Tests 10/05/24 05:24 10/04/24 04:56 Test 10/05/24 05:24 Range/Units Serum Glucose 118 H 74-106 mg/dL Microbiology Date/Time Source Procedure Growth Status 09/27/24 06:30 Nose MRSA Screen - Final Complete 09/26/24 23:35 Blood Blood Culture - Final NO GROWTH AFTER 5 DAYS OF INCUBATION. Complete 09/26/24 22:30 Voided Urine Urine Culture - Final Complete Problem List/Assessment/Plan Problem List/Assessment/Plan AFEBRILE VSS LLQ PAIN LESS KEEP NPO IV ABX CONSIDER HOME TPN AND ABX CLEARED FOR DISCHARGE INSTRUCTIONS RE DIET ACTIVITY F/UP GIVEN REPEAT CT SCAN ABD PELVIS IN 1 WEEK Plan discussed with: Patient Dietary Evaluation Review Comments: 1) If patient remains NPO for more than 7 days, consider TPN to meet at least 75% of estimated needs 2) If GI route is preferred, consider Vital AF @ 50 mL goal rate as tolerated. Goal rate will provide 1,440 kcals, 90g Pro, and 973 mL free H2O per 24 hrs 3) Advance to low fiber diet when medically feasible 4) Continue current plan of care Expected Outcomes/Goals: 1) diet to advance 2) appetite and labs to improve 3) f/u in 3 days SANDRA WHITT MD Oct 05, 2024 20:09
[2024-10-05] MEDS ORDERED: PPN PER PHARMACY IV NR (22:00)
== END 2024-10-05 20:57 | disposition home or self-care (01) | DRG 720 ==
LOC: ER 21:32 → OVERFLOW 09-27 01:09 → CENTRAL 09-27 08:56
PROVIDERS: ADMIT Student in an Organized Health Care Education/Training Program; ATTEND Emergency Medicine
PROC: 05HB33Z Insertion of Infusion Device into Right Basilic Vein, Percutaneous Approach (ICD-10-PCS; principal; 2024-10-01)
PROC: B54MZZA Ultrasonography of Right Upper Extremity Veins, Guidance (ICD-10-PCS; 2024-10-01)
PROC: 02HV33Z Insertion of Infusion Device into Superior Vena Cava, Percutaneous Approach (ICD-10-PCS; 2024-10-04)
PROC: B548ZZA Ultrasonography of Superior Vena Cava, Guidance (ICD-10-PCS; 2024-10-04)
DX: A41.9 Sepsis, unspecified organism (principal); K57.20 Diverticulitis of large intestine with perforation and abscess without bleeding; E66.9 Obesity, unspecified; F12.20 Cannabis dependence, uncomplicated; E87.6 Hypokalemia; Z79.2 Long term (current) use of antibiotics; Z79.891 Long term (current) use of opiate analgesic; Z79.899 Other long term (current) drug therapy; Z79.1 Long term (current) use of non-steroidal anti-inflammatories (NSAID); Z79.4 Long term (current) use of insulin; Z68.27 Body mass index [BMI] 27.0-27.9, adult
CPT/HCPCS: 36415; 36569; 74018; 74177; 74178; 76937; 80048; 80053; 80069; 80307; 80320; 81001; 82962; 83605; 83690; 83735; 84100; 84478; 85025; 85610; 85730; 86803; 87040; 87081; 87086; 87340; 96360; 99291; G0378; J1885; J2405; J2470; J2543; J3480; J3490; J7042

== ENCOUNTER 2025-01-17 10:04 | Inpatient (IN) | payer MEDICAID ==
[~2025-01-17] VITALS: Ht 167.6 cm; Wt 67.0 kg
[~2025-01-17 10:04] MED LIST changes: -HYDR-4902 PO; -LEVO750T40 PO; -MET500T PO; -METR-344 PO; -METR375C PO; -METR500T PO; -ONDA-144 PO; -PERCOT PO
--- NOTE | 2025-01-17 10:48 | ED.PDOC ---
Musculoskeletal HPI Comments HPI: This is a 34 year old male presenting to the ED with chief complaint of right arm pain. Patient reports that he had a PICC line placed into his right arm in early September due to needing to be TPN while being treated for diverticulitis by Dr. Sarmiento. Patient relays that for the past 3 weeks he has been eating normally now and has not used his PICC line for any antibiotics or fluids, however, he started to experience pain to his right arm around the site for the past few days. Patient states that he was advised by Dr. Sarmiento to come into the ED to have a CT performed of his abdomen to evaluate his diverticulitis. Patient notes that he currently has minimal abdominal discomfort. Patient denies any abdominal pain, N/V/D, dizziness, fever, chills, or headache. Initial Vitals BP: 135/73 HR: 90 RR: 16 O2 Sat: 99% Temp: 97.9F Past Medical history: Diverticulitis Past Surgical history: Denies Medications: Denies Social History: Occasional ETOH, + Marijuana use. Denies smoking. Allergies: NKDA HPI: Poor Historian. REVIEW OF SYSTEMS: CONSTITUTIONAL: Denies acute: fever, diaphoresis, chills, generalized weakness. HEAD: Denies acute: headache, photophobia Eyes: Denies acute: Double vision, vision loss, eye pain, eye discharge. EARS: Denies acute: tinnitus, hearing loss, ear discharge, ear pain, THROAT: Denies acute: sore throat, swelling, difficulty swallowing , pain with swallowing, change in voice. NECK: Denies acute: neck pain, neck swelling, stiff neck. HEART: Denies acute : chest pain, palpitations, LUNGS: Denies acute: SOB, wheezing, cough, hemoptysis ABDOMEN: Denies acute: , Nausea, Vomiting, diarrhea, melena , hematemesis, hematochezia SKIN: Denies acute: rash, redness, lesions, itchiness. EXTREMITIES: Denies acute: calf pain, numbness, tingling, weakness, Denies acute: Low back pain. Neuro: Denies acute: focal neurological deficit, motor or sensory focal neurological deficit, tremors, seizure like activity, confusion, dizziness, change in mental status, loss of bowel or bladder function, cauda equina like symptoms. : Denies acute: dysuria, hematuria, flank pain, increase in urinary frequency. PSYCH: Denies acute: hallucination, suicidal ideation, homicidal ideation. PHYSICAL EXAM: General: -----mild---acute distress, awake and alert. Head: normocephalic, atraumatic. Neck: supple, trachea is midline, no swelling. Throat: Normal phonation. Eyes:, no erythema, no purulent discharge, no proptosis, no icterus. Heart: regular rate, regular rhythm, no significant murmur appreciated. Lungs: no apparent respiratory distress, Able to speak in full sentences. No wheezing, no rhonchi, no crackles. No stridors Clear to auscultation bilaterally. Abdomen: Mild left-sided tender to palpation, non distended, soft, no guarding, no rebound, + bowel sounds. Neuro: Awake, Alert, oriented to name, self, situation, follows commands GCS=15. Speech is normal. Right upper extremity evaluation with a PICC line is: At the insertion site there is some firmness and tenderness to palpation and mild erythema. Skin: no petechia, no purpura, no cyanosis, non-pale, not jaundice. Lower extremities: --no - Pitting edema no deformity, no focal swelling, no calf TTP. Makes eye contact. moves all four extremities. Face: no apparent facial droop. Ambulating in the ED independently. ED COURSE: DISCLAIMER: This medical document was created using an electronic medical record system with voice recognition software and computerized dictation system. Although this document has been carefully reviewed, there might still be some phonetic and typographical errors. Occasional wrong-word or "sound-alike" substitutions may have occurred due to the inherent limitations of voice recognition software. These areas are purely typographical due to imperfections of the software programs and do not reflect any compromise in the patient's medical care. Please read the chart carefully and recognize, using context, where these substitutions have occurred. Chief Complaint: Upper Extremity Time Seen by MD: 10:43 Primary Care Provider: UNKNOWN Reviewed Notes: Medications, Allergies Allergies: Coded Allergies: NO KNOWN ALLERGIES (Unverified , 10/25/18) Home Meds Active Scripts Levofloxacin Hemihydrate (LEVAQUIN 500 MG) 500 Mg Tab, 1 TAB PO DAILY for 7 Days, #7 TAB Prov:SHORTY TANG NP 04/19/23 Ciprofloxacin Hcl (Cipro) 500 Mg Tab, 500 MG PO BID for 7 Days, #14 TAB Prov:CHAYA CALDERÓN MD 05/04/22 Information Source: Patient Mode of Arrival: Ambulatory Location: Right Was a procedure done? Was a procedure done?: Yes Sedation Sedation?: No Other Procedure Procedure PICC line removal Success Removed PICC line successfully. Patient tolerated procedure well. Informed consent obtained: Yes Risks, benefits, and alternati: Yes Differential Diagnosis EXT Differential Diagnosis: Cellulitis, CHF, Deep Vein Thrombosis, Compartment Syn drome, Septic, Neurovascular injury X-Ray, Labs, Meds, VS Vital Signs Date Time Temp Pulse Resp B/P (MAP) Pulse Ox O2 Delivery O2 Flow Rate FiO2 01/17/25 10:30 97.9 90 16 135/73 (93) 99 97.9 Lab Test 01/17/25 10:48 01/17/25 10:36 Range/Units White Blood Count 12.0 H 4.4-10.8 10^3/uL Red Blood Count 5.51 4.5-5.90 10^6/uL Hemoglobin 14.4 13.5-17.5 g/dL Hematocrit 43.9 41.0-53.0 % Mean Corpuscular Volume 79.7 L 80.0-100.0 fL Mean Corpuscular Hemoglobin 26.2 L 28.0-32.0 pg Mean Corpuscular Hemoglobin Concent 32.9 32.0-36.0 g/dL Red Cell Distribution Width 16.9 H 11.8-14.3 % Platelet Count 220 140-450 10^3/uL Mean Platelet Volume 8.4 6.9-10.8 fL Neutrophils (%) (Auto) 74.9 37.0-80.0 % Lymphocytes (%) (Auto) 17.0 10.0-50.0 % Monocytes (%) (Auto) 7.2 0.0-12.0 % Eosinophils (%) (Auto) 0.6 0.0-7.0 % Basophils (%) (Auto) 0.3 0.0-2.0 % Neutrophils # (Auto) 9.0 H 1.6-8.6 10 ^3/uL Lymphocytes # (Auto) 2.0 0.4-5.4 10 ^3/uL Monocytes # (Auto) 0.9 0-1.3 10 ^3/uL Eosinophils # (Auto) 0.1 0-0.8 10 ^3/uL Basophils # (Auto) 0 0-0.2 10 ^3/uL Nucleated Red Blood Cells 0.0 % Sodium Level 142 136-145 mmol/L Potassium Level 4.0 3.5-5.1 mmol/L Chloride Level 105 98-107 mmol/L Carbon Dioxide Level 29 20-31 mmol/L Anion Gap 8 5-15 Blood Urea Nitrogen 7 L 9-23 mg/dL Creatinine 0.72 0.700-1.30 mg/dL Glomerular Filtration Rate Calc 124 >90 mL/min BUN/Creatinine Ratio 9.7 L 10.0-20.0 Serum Glucose 108 H 74-106 mg/dL Lactic Acid Level 0.9 0.4-2.0 mmol/L Calcium Level 10.6 H 8.7-10.4 mg/dL Total Bilirubin 0.8 0.2-1.0 mg/dL Aspartate Amino Transferase (AST) 19 <34 U/L Alanine Aminotransferase (ALT) 18 7-40 U/L Alkaline Phosphatase 83 46-116 U/L Total Protein 8.4 H 5.7-8.2 g/dL Albumin 5.2 H 3.2-4.8 g/dL Urine Color Yellow Yellow Urine Clarity Clear Clear Urine pH 6.0 5.0-9.0 Urine Specific [place] 1.024 1.001-1.035 Urine Protein Trace H Negative Urine Ketones Negative Negative Urine Blood Negative Negative /uL Urine Nitrite Negative Negative Urine Bilirubin Negative Negative Urine Urobilinogen Normal Negative mg/dL Urine Leukocyte Esterase Trace Negative /uL Urine RBC 2 0 - 3 /hpf Urine Microscopic WBC 1 0-3 /HPF Urine Squamous Epithelial Cells None seen <5 /hpf Urine Bacteria None seen None Seen /hpf Urine Mucus Few None Seen Urine Glucose Normal Normal mg/dL Time of 1ST Reevaluation: 11:43 Reevaluation 1ST: Unchanged Time of 2ND Reevaluation: 12:20 (Dr. Sarmiento came and evaluated the patient at bedside. He will follow in consult. Agrees with our management. Antibiotics will be initiated. He recommends removing the PICC line) Patient Education/Counseling: Diagnosis, Treatment Family Education/Counseling: No Family Present Comments Patient presented with the above HPI.---extremity pain and abdominal pain---workup was initiated. patient was found with the above mentioned diagnosis. the following medications were ordered: please refer to order lists of meds and tests obtained by myself Dr. Clark. Patient ED course and VS have been stabilized. Patient has been reassessed in the ED and remained in a stable condition. Pertinent incidental findings were discussed with the patient and/or family. Patient/family voices understanding and is agreeable with plan. Patient has been observed in the ED adequate length of time to insure improvement/stability. Escalation of care considered: Consideration of escalation to observation or admission Sepsis protocol was initiated with weight based fluid resuscitation. PICC line was removed successfully. General surgery was consulted and came and evaluated the patient at bedside Dr. Sarmiento Patient was ADMITTED to the medicine team for further evaluation and treatment of their presentation. All the reports of any imaging studies that were ordered by myself were reviewed by myself. Departure 1 Departure Time of Disposition: 11:45 Impression: Primary Impression: Deep vein thrombosis, upper right extremity Additional Impressions: Diverticulitis of large intestine with complication Abdominal abscess Disposition: ADMITTED INPATIENT Admit to: Tele Condition: Guarded Discharged With: Self Critical Care Note Critical Care Time?: Yes (45 min-critical care time only) I personally scribed for DONELL CLARK DO ([email or web address]) on 01/17/25 at 10:48. Electronically submitted by Angelo Aleman ([email or web address]). I personally scribed for DONELL CLARK DO ([email or web address]) on 01/17/25 at 19:23. Electronically submitted by Angelo Aleman ([email or web address]). DONELL CLARK DO Jan 17, 2025 10:48
[2025-01-17 10:59] LABS: Eosinophils # (auto) 0.1 10 ^3/uL (0-0.8); Hematocrit 43.9 % (41.0-53.0); Monocytes # (auto) 0.9 10 ^3/uL (0-1.3)
[2025-01-17 11:01] LABS: Basophils # (auto) 0 10 ^3/uL (0-0.2); Basophils % (auto) 0.3 % (0.0-2.0); Eosinophils % (auto) 0.6 % (0.0-7.0); Hemoglobin 14.4 g/dL (13.5-17.5); Mean Corpuscular Hemoglobin 26.2 pg (28.0-32.0); Mean Corpuscular Hgb Conc. 32.9 g/dL (32.0-36.0); Mean Corpuscular Volume 79.7 fL (80.0-100.0); Monocytes % (auto) 7.2 % (0.0-12.0); Neutrophils % (auto) 74.9 % (37.0-80.0); Platelet Count (auto) 220 10^3/uL (140-450); Red Blood Cells 5.51 10^6/uL (4.5-5.90); Red Cell Distribution Width 16.9 % (11.8-14.3)
[2025-01-17 11:03] LABS: Urine Bacteria None Seen /hpf (None Seen)
[2025-01-17 11:17] LABS: Alanine Aminotransferase 18 U/L (7-40); Albumin 5.2 g/dL (3.2-4.8); Alkaline Phosphatase 83 U/L (46-116); Anion Gap 8 (5-15); Aspartate Aminotransferase 19 U/L (<34); BUN/Creatinine Ratio 9.7 (10.0-20.0); Bilirubin, Total 0.8 mg/dL (0.2-1.0); Blood Urea Nitrogen 7 mg/dL (9-23); Calcium 10.6 mg/dL (8.7-10.4); Carbon Dioxide 29 mmol/L (20-31); Chloride 105 mmol/L (98-107); Glucose 108 mg/dL (74-106); Sodium 142 mmol/L (136-145); Total Protein 8.4 g/dL (5.7-8.2)
[2025-01-17 11:28] LABS: Urine Blood Negative /uL (Negative); Urine Clarity Clear (Clear); Urine Color Yellow (Yellow); Urine Mucus FEW (None Seen); Urine Protein, UAD TRACE (Negative); Urine Specific Gravity 1.024 (1.001-1.035); Urine Squamous Epithelial Cell None Seen /hpf (<5); Urine Urobilinogen Normal (Negative); Urine WBC 1 /HPF (0-3)
--- NOTE | 2025-01-17 11:36 | DVH ---
RIGHT Upper Extremity Venous Duplex Clinical History: pain swelling Comparison: None Technique: Duplex Doppler evaluation of the venous system of the RIGHT lower neck and upper extremity including color Doppler and spectral/pulsed waveform analysis was performed. Findings: The internal jugular vein demonstrates appropriate compressibility and waveform variability. The subclavian vein is patent on color Doppler evaluation without intraluminal thrombus and demonstra kat waveform variability. The visualized portion of the brachiocephalic vein is patent on color Doppler evaluation without intr aluminal thrombus and demonstrates waveform variability. The axillary vein demonstrates intraluminal thrombus and noncompressibility.. The brachial veins demonstrate appropriate compressibility and patency on Doppler evaluation. The basilic vein demonstrates intraluminal thrombus and noncompressibility. The cephalic vein demonstrates appropriate compressibility and patency on Doppler evaluation. Impression: Positive thrombus is present in the right axillary vein and basilic vein. PICC line is seen in the right basilic vein to subclavian vein. Critical Result: DVT Unsuccessful attempts at reaching providerat 01/17/2025 11:36 AM,
--- NOTE | 2025-01-17 11:46 | DVH ---
Exam: CT CT AB PEL WO CON-NO ORAL OR IV History: h/o diverticulitis. Comparison Study: CT CT AB PELV W WO CON-ORAL IV on DOS: 09/30/24, CT CT AB PEL WO CON-NO ORAL OR IV on DOS: 09/20/24, CT CT AB PEL WO CON-NO ORAL OR IV on DOS: 04/16/23 Technique: Multidetector spiral CT of the abdomen and pelvis was performed from lung bases to pubic symphysis. Imaging was performed without IV contrast. Axial, coronal and sagittal multiplanar reform ats were obtained from the axial data set by the technologist. Radiation dose : Abdomen/Pelvis: CTDIvol 8 mGy, DLP 403 mGy*cm. Findings: Evaluation of solid organs is limited due to lack of intravenous contrast use. Lung Bases: No acute or significant lung base finding. Normal heart size. No pleural or pericardial effusion. Liver: The liver is normal in size. No focal lesions. Gallbladder and biliary Tree: Unremarkable Spleen: Unremarkable Pancreas: The pancreas is grossly normal in appearance. Adrenal Glands: Unremarkable Kidneys: Kidneys are grossly normal without calculi or hydronephrosis. Bladder: Grossly unremarkable for degree of distention. Bowel: The stomach is grossly normal in appearance. Small bowel and colon are normal in caliber and d istribution. Normal appendix is visualized in the right lower quadrant without findings of appendicit is. Sigmoid diverticulosis with associated wall thickening and adjacent stranding. Soft tissue densi ty adjacent to the sigmoid colon measuring up to 15 mm contacting the bladder. Ascites: Absent Lymphadenopathy: Subcentimeter mesenteric and iliac chain lymph nodes are noted. Abdominal wall and Mesentery: Unremarkable. Vasculature: The visualized abdominal aorta is normal in size and caliber. Evaluation of abdominal a nd pelvic vessels is limited due to lack of intravenous contrast. Pelvic Organs: Unremarkable Musculoskeletal: No aggressive focal bony lesions, acute fractures or dislocation. IMPRESSION: 1. Limited evaluation without intravenous contrast. Findings suggestive of acute diverticulitis with possible early abscess formation involving the bladder. Lymphadenopathy could be reactive. An under lying malignant lesion is not entirely excluded. Recommend follow-up CT of the pelvis with intraveno us contrast. Clinical correlation and continued follow-up is recommended. Radiation optimization: All CT scans at this facility use at least one of these dose optimization tripp hniques: Automated exposure control mA and/or kV adjustment per patient size (includes targeted exams where dose is matched to clinical indication) or iterative reconstruction. HS:Y
[2025-01-17] MEDS: CIPROFLOXACIN 400MG/200ML 200 ML IV ONE (12:30)
[2025-01-17] MEDS: metroNIDAZOLE 500MG/100ML 100 ML IV ONE (12:30)
--- NOTE | 2025-01-17 14:32 | DVHHP2 ---
History of Present Illness Reason for Visit: Right arm pain History of Present Illness 34-year-old male past medical history diverticulitis with inflammatory mass found in September of 2024 it appears patient was discharged home with a PICC line and he was given TPN and Zosyn patient states he completed the treatment three weeks ago and he had no follow up after this and he had no continuation of the TPN and Zosyn. He states he has a total of nine days' worth of treatment he states that he attempted to follow up with the surgeon but surgeon never answered so he said that today he was able to see Dr. Sarmiento which is the surgeon in the ED patient states he never got any follow up wants to TPN and antibiotics completed which was three weeks ago now he is complain of the right upper arm pain and swelling and he stated some redness around the PICC line site patient states his abdominal symptoms was getting better but he was told to CT scan today showed no improvement he denies any vomiting no fever no diarrhea no chest pain no shortness with the breath when evaluating patient's labs and i maging patient was given Cipro Flagyl white count was 12.0 calcium was 10.[address] scan of the abdomen pelvis shows acute diverticulitis with a possible early abscess forming around the bladder patient also had an ultrasound of the right upper arm and it shows he has a DVT with these findings we will admit we will provide IV antibiotics we will also ask for General surgery Dr. Sarmiento evaluation along with starting heparin for now in case patient will need a procedure completed did also consult IR for possible drainage for the abscess. We will admit patient for further workup and care Past Medical History See HPI above Past Surgical History See HPI above Family History Reviewed, non-contributory to the management of this case. Past Social History The patient lives at home, denies smoking, alcohol or illicit drugs abuse. Review of Systems Constitutional: No: Fever, Chills, Sweats, Weakness, Malaise, Other Eyes: No: Pain, Vision change, Conjunctivae inflammation, Eyelid inflammation, Other, Redness ENT: No: Ear pain, Ear discharge, Nose pain, Nose discharge, Nose congestion, Mouth pain, Mouth swelling, Throat pain, Throat swelling, Other Respiratory: No: Cough, Dry, Shortness of breath, SOB with excertion, Wheezing, Hemoptysis, Pleuritic Pain, Sputum, Wheezing, Other Cardiovascular: No: Chest Pain, Palpitations, Orthopnea, Paroxysmal Noc. Dyspnea, Edema, Lt Headedness, Other Gastrointestinal: Abdominal Pain; No: Nausea, Vomiting, Diarrhea, Constipation, Melena, Hematochezia, Other Genitourinary: No Dysuria, No Frequency, No Incontinence, No Hematuria, No Retention, No Other Musculoskeletal: arm pain; No: other, neck pain, shoulder pain, back pain, hand pain, leg pain, foot pain Skin: No: Rash, Lesions, Jaundice, Bruising, Other Neurological: No: Weakness, Numbness, Incoordination, Change in speech, Confusion, Seizures, Other Allergies: Coded Allergies: NO KNOWN ALLERGIES (Unverified , 10/25/18) Exam Vital Signs Vital Signs Date Time Temp Pulse Resp B/P (MAP) Pulse Ox O2 Delivery O2 Flow Rate FiO2 01/17/25 10:30 97.9 90 16 135/73 (93) 99 97.9 General Appearance: Alert, Oriented X3, Cooperative, No acute distress HEENT: Atraumatic, PERRLA, EOMI, Mucous membr. moist/pink Respiratory: Clear to auscultation, Normal air movement Cardiovascular: Regular rate, Normal S1, Normal S2, No murmurs Abdominal: Normal bowel sounds, Soft, No tenderness, No hepatospenomegaly, No masses Extremities: No clubbing, No cyanosis, No edema, Normal pulses, No tenderness/swelling, Other (Right upper extremity compartments soft PICC line is in place mild erythema surrounding the PICC line neurovascular intact no co mpartment syndrome felt) Skin: No rashes, No breakdown, No significant lesion Neuro: Normal gait, Normal speech, Strength at 5/5 X4 ext, Normal tone, Sensation intact, Cranial nerves 3-12 NL Psych/Mental Status: Mental status NL, Mood NL Labs/Xrays CT scan of the abdomen pelvis shows early abscess and acute diverticulitis abscess was forming at the bladder Ultrasound around the PICC line shows acute DVT I reviewed labs, imaging CT scan abdomen pelvis, EKG and all diagnostic studies on this patient from ED records and the medical chart Labs Test 01/17/25 10:48 01/17/25 10:36 Range/Units White Blood Count 12.0 H 4.4-10.8 10^3/uL Red Blood Count 5.51 4.5-5.90 10^6/uL Hemoglobin 14.4 13.5-17.5 g/dL Hematocrit 43.9 41.0-53.0 % Mean Corpuscular Volume 79.7 L 80.0-100.0 fL Mean Corpuscular Hemoglobin 26.2 L 28.0-32.0 pg Mean Corpuscular Hemoglobin Concent 32.9 32.0-36.0 g/dL Red Cell Distribution Width 16.9 H 11.8-14.3 % Platelet Count 220 140-450 10^3/uL Mean Platelet Volume 8.4 6.9-10.8 fL Neutrophils (%) (Auto) 74.9 37.0-80.0 % Lymphocytes (%) (Auto) 17.0 10.0-50.0 % Monocytes (%) (Auto) 7.2 0.0-12.0 % Eosinophils (%) (Auto) 0.6 0.0-7.0 % Basophils (%) (Auto) 0.3 0.0-2.0 % Neutrophils # (Auto) 9.0 H 1.6-8.6 10 ^3/uL Lymphocytes # (Auto) 2.0 0.4-5.4 10 ^3/uL Monocytes # (Auto) 0.9 0-1.3 10 ^3/uL Eosinophils # (Auto) 0.1 0-0.8 10 ^3/uL Basophils # (Auto) 0 0-0.2 10 ^3/uL Nucleated Red Blood Cells 0.0 % Sodium Level 142 136-145 mmol/L Potassium Level 4.0 3.5-5.1 mmol/L Chloride Level 105 98-107 mmol/L Carbon Dioxide Level 29 20-31 mmol/L Anion Gap 8 5-15 Blood Urea Nitrogen 7 L 9-23 mg/dL Creatinine 0.72 0.700-1.30 mg/dL Glomerular Filtration Rate Calc 124 >90 mL/min BUN/Creatinine Ratio 9.7 L 10.0-20.0 Serum Glucose 108 H 74-106 mg/dL Lactic Acid Level 0.9 0.4-2.0 mmol/L Calcium Level 10.6 H 8.7-10.4 mg/dL Total Bilirubin 0.8 0.2-1.0 mg/dL Aspartate Amino Transferase (AST) 19 <34 U/L Alanine Aminotransferase (ALT) 18 7-40 U/L Alkaline Phosphatase 83 46-116 U/L Total Protein 8.4 H 5.7-8.2 g/dL Albumin 5.2 H 3.2-4.8 g/dL Urine Color Yellow Yellow Urine Clarity Clear Clear Urine pH 6.0 5.0-9.0 Urine Specific [place] 1.024 1.001-1.035 Urine Protein Trace H Negative Urine Ketones Negative Negative Urine Blood Negative Negative /uL Urine Nitrite Negative Negative Urine Bilirubin Negative Negative Urine Urobilinogen Normal Negative mg/dL Urine Leukocyte Esterase Trace Negative /uL Urine RBC 2 0 - 3 /hpf Urine Microscopic WBC 1 0-3 /HPF Urine Squamous Epithelial Cells None seen <5 /hpf Urine Bacteria None seen None Seen /hpf Urine Mucus Few None Seen Urine Glucose Normal Normal mg/dL Assessment/Plan Assessment/Plan acute diverticulitis with possible early abscess forming around bladder found on ct scan pt had recent treatment 10/23 where was sent home zosyn and pic line ordered vanco and zosyn ordered blood cultures fu results ordered morphine prn pain ordered general surgery stat consult with Dr. Magaña ordered IR consult for possible drain placement ordered renal us fu results monitor kidney function monitor for urinary retention acute right arm thrombus likely provoked from pic line in right arm found on imaging will need to d/c pic line once blood thinner started will start heparin since pending procedure monitor for resp distress will need to persue ct angio chest acute leukocytosis likely from early abscess and diverticulitis ordered vanco and zosyn for now ordered blood cultures fu results Marijuana abuse Encouraged abstinence fen/ppx npo ivf scd protonix heparin drip for now plan admit to tele general surgery consult fu results Plan discussed with: Patient Date of Service: Jan 17, 2025 Billing Provider: LAURA VELOZ DNP Common Visit Codes: [id number] INP/OBS CARE (HIGH) LUARA VELOZ DNP Jan 17, 2025 14:32
[2025-01-17] MEDS ORDERED: VANCOMYCIN PER PHARMACY 0 MG IV SCH (16:00)
[2025-01-17] MEDS ORDERED: NITROGLYCERIN 0.4 MG SL TAB SL PRN (16:00)
[2025-01-17 16:25] LABS: Eosinophils # (auto) 0.1 10 ^3/uL (0-0.8); White Blood Cell 12.4 10^3/uL (4.4-10.8)
[2025-01-17 16:27] LABS: Basophils # (auto) 0 10 ^3/uL (0-0.2); Basophils % (auto) 0.3 % (0.0-2.0); Eosinophils % (auto) 0.6 % (0.0-7.0); Hematocrit 42.4 % (41.0-53.0); Hemoglobin 14.2 g/dL (13.5-17.5); Lymphocytes # (auto) 2.1 10 ^3/uL (0.4-5.4); Lymphocytes % (auto) 17.1 % (10.0-50.0); Mean Corpuscular Hemoglobin 26.8 pg (28.0-32.0); Mean Corpuscular Hgb Conc. 33.5 g/dL (32.0-36.0); Monocytes % (auto) 7.9 % (0.0-12.0); Neutrophils # (auto) 9.2 10 ^3/uL (1.6-8.6); Neutrophils % (auto) 74.1 % (37.0-80.0); Platelet Count (auto) 221 10^3/uL (140-450); Red Blood Cells 5.29 10^6/uL (4.5-5.90); Red Cell Distribution Width 17.3 % (11.8-14.3)
[2025-01-17 16:48] LABS: INR 1.08 (0.9-1.15); Partial Thromboplastin Time 30.5 SEC (24.5-34.5); Prothrombin Time 11.4 sec (9.3-11.8)
--- NOTE | 2025-01-17 17:32 | DVH ---
RENAL ULTRASOUND REASON FOR EXAM: eval for abscess around the bladder. Pain. COMPARISON: CT abdomen/ pelvis 01/17/2025 TECHNIQUE: Real-time sector scans in multiple planes were obtained over the kidneys, ureters and nicko dder. FINDINGS: The right kidney measures 12.1 cm. The left kidney measures 11.3 cm. No mass is identifie d. There is no hydronephrosis. The urinary bladder is decompressed and is suboptimally evaluated. Th e bladder volume at the time of scanning is 15.0 cc. No pelvic fluid collection is identified in the area of the bladder. A bowel loop abuts and may be adherent to the bladder dome. IMPRESSION: Normal sonographic appearance of the kidneys. A bowel loop abuts and may be adherent to the bladder dome. On the recent CT, this appears to be an i nflamed segment of sigmoid colon. For any clinically indicated follow-up imaging, CT of the abdomen/ pelvis with oral and enteric contrast would be recommended.
[2025-01-17] MEDS: ONDANSETRON HCL 4 MG/2 ML VIAL IV PRN (18:29)
[2025-01-17] MEDS: HEPARIN SODIUM (PORCINE) 5000 UNITS/ML 1ML VIAL IV ONE (18:30)
[2025-01-17] MEDS: MORPHINE SULFATE INJ 2 MG/ml SYRG IV PRN (21:58)
[2025-01-17] MEDS: HEPARIN DRIP/D5W 100UNITS/ML 250 ML IV SCH (22:02)
[2025-01-17] MEDS: PIPERACILLIN-TAZOB 3.375GM 100 ML IV ONE (22:07)
[2025-01-17 23:12] VITALS: BP 110/63; PULSE 70; RESP 18; TEMP 98.4; O2SAT 96
[2025-01-17 23:33] VITALS: BP 110/63; PULSE 70; RESP 18; TEMP 98.4; O2SAT 96; O2SAT 98
[2025-01-18 01:00] VITALS: BP 99/60; PULSE 65; RESP 17; TEMP 98.5; O2SAT 96
[2025-01-18] MEDS: SODIUM CHLORIDE 0.9% 1,000 ML IV SCH (01:30)
[2025-01-18] MEDS: VANCOMYCIN 1.5GM/300ML 300 ML IV ONE (01:31)
[2025-01-18] MEDS: PIPERACILLIN-TAZOB 3.375GM 100 ML IV SCH ×2 (04:40→05:06)
[2025-01-18 06:44] LABS: Basophils # (auto) 0.1 10 ^3/uL (0-0.2); Basophils % (auto) 0.6 % (0.0-2.0); Eosinophils # (auto) 0.2 10 ^3/uL (0-0.8); Eosinophils % (auto) 2.6 % (0.0-7.0); Hematocrit 35.7 % (41.0-53.0); Hemoglobin 11.6 g/dL (13.5-17.5); Lymphocytes # (auto) 2.4 10 ^3/uL (0.4-5.4); Lymphocytes % (auto) 25.9 % (10.0-50.0); Mean Corpuscular Hemoglobin 26.5 pg (28.0-32.0); Mean Corpuscular Hgb Conc. 32.6 g/dL (32.0-36.0); Mean Corpuscular Volume 81.4 fL (80.0-100.0); Monocytes # (auto) 0.8 10 ^3/uL (0-1.3); Monocytes % (auto) 8.7 % (0.0-12.0); Neutrophils # (auto) 5.7 10 ^3/uL (1.6-8.6); Neutrophils % (auto) 62.2 % (37.0-80.0); Nucleated Red Blood Cells % 0.1 %; Platelet Count (auto) 177 10^3/uL (140-450); Red Blood Cells 4.38 10^6/uL (4.5-5.90); Red Cell Distribution Width 16.7 % (11.8-14.3); White Blood Cell 9.1 10^3/uL (4.4-10.8)
[2025-01-18 06:56] LABS: INR 1.17 (0.9-1.15); Partial Thromboplastin Time 48.8 SEC (24.5-34.5); Prothrombin Time 12.2 sec (9.3-11.8)
[2025-01-18 08:44] LABS: Alanine Aminotransferase 17 U/L (7-40); Alkaline Phosphatase 81 U/L (46-116); Anion Gap 10 (5-15); Aspartate Aminotransferase 18 U/L (<34); Blood Urea Nitrogen 9 mg/dL (9-23); Carbon Dioxide 25 mmol/L (20-31); Chloride 105 mmol/L (98-107); Glucose 95 mg/dL (74-106); Potassium 3.7 mmol/L (3.5-5.1); Sodium 140 mmol/L (136-145)
[2025-01-18 08:49] LABS: Albumin 5.1 g/dL (3.2-4.8); Bilirubin, Total 1.4 mg/dL (0.2-1.0); Calcium 10.5 mg/dL (8.7-10.4); Total Protein 8.4 g/dL (5.7-8.2)
[2025-01-18] MEDS: HEPARIN DRIP/D5W 100UNITS/ML 250 ML IV SCH ×2 (09:03→23:40)
--- NOTE | 2025-01-18 09:39 | CONS ---
Pharmacy Clinical Information: HEPARIN PER PHARMACY SPOKE TO HUGO Al REGARDING heparin dose change Current dose: 1100 units/hr CURRENT aPTT: 48.8 on 01/18/25 at 06:22 BOLUS: no Increase heparin drip rate (new dose): 1300 units/hr Date and time new dose started: 09:03 on 01/18/2025 Next aPTT: 01/18/2025 AT 15:00 HUGO Hou READ BACK NEW DOSE: 1300 UNITS/HR NEENA Gibbs Jan 18, 2025 09:39
[2025-01-18 13:00] VITALS: BP 137/79; PULSE 84; RESP 19; TEMP 98.3; O2SAT 100
--- NOTE | 2025-01-18 13:28 | DVHPN2 ---
Reviewed: Care Plan, H&P, Labs, Medications, Previous Orders, Radiology Changes from previous H/P or p: No Changes Eyes: No Pain, No Vision change, No Conjunctivae inflammation, No Eyelid inflammation, No Other, No Redness ENT: No Ear pain, No Ear discharge, No Nose pain, No Nose discharge, No Nose congestion, No Mouth pain, No Mouth swelling, No Throat pain, No Throat swelling, No Other Cardiovascular: No Chest Pain, No Palpitations, No Orthopnea, No Paroxysmal Noc. Dyspnea, No Edema, No Lt Headedness, No Other Respiratory: No Cough, No Dry, No Shortness of breath, No SOB with excertion, No Wheezing, No Hemoptysis, No Pleuritic Pain, No Sputum, No Other Gastrointestinal: Abdominal Pain Genitourinary: No Dysuria, No Frequency, No Incontinence, No Hematuria, No Retention, No Other Musculoskeletal: arm pain Skin: No Rash, No Lesions, No Jaundice, No Bruising, No Other Objective Vitals Vital Signs Date Time Temp Pulse Resp B/P (MAP) Pulse Ox O2 Delivery O2 Flow Rate FiO2 01/18/25 08:00 Room Air* 0 21 01/18/25 01:00 98.5 65 17 99/60 (73) 96 98.5 Intake/Output Intake and Output 01/18/25 07:00 Intake Total 0 ml Balance 0 ml Intake Oral 0 ml Medications Current Medications Medications Dose Ordered Sig/Yared Route Start Time Stop Time Status Last Admin Dose Admin Sodium Chloride 1,000 ml @ 120 mls/hr [id number] IV 01/17/25 16:00 01/18/25 04:40 120 MLS/HR Ondansetron HCl 4 mg Q4HP PRN IV 01/17/25 16:00 01/17/25 18:29 4 MG Morphine Sulfate 2 mg Q4HPRN PRN IV 01/17/25 16:00 01/17/25 21:58 2 MG Nitroglycerin 0.4 mg Q5MINP PRN SL 01/17/25 16:00 Piperacillin Sod/ Tazobactam Sod 100 ml @ 25 mls/hr Q6HR@0500,1100,1700,2300 IV 01/18/25 05:00 01/18/25 10:53 25 MLS/HR Heparin Sodium/ Dextrose 250 ml @ 13 mls/hr [id number] IV 01/18/25 09:15 01/18/25 09:03 13 MLS/HR Laboratory Results Laboratory Tests 01/18/25 06:22 01/18/25 07:49 Chemistry Test 01/18/25 07:49 Albumin 5.1 g/dL (3.2-4.8) H Calcium Level 10.5 mg/dL (8.7-10.4) H Total Protein 8.4 g/dL (5.7-8.2) H Coagulation Test 01/17/25 16:09 01/18/25 06:22 Prothrombin Time 11.4 sec (9.3-11.8) 12.2 sec (9.3-11.8) H Prothrombin Time INR 1.08 (0.9-1.15) 1.17 (0.9-1.15) H Activated Partial Thromboplast Time 30.5 SEC (24.5-34.5) 48.8 SEC (24.5-34.5) H LFT Test 01/18/25 07:49 Alanine Aminotransferase (ALT) 17 U/L (7-40) Alkaline Phosphatase 81 U/L (46-116) Aspartate Amino Transferase (AST) 18 U/L (<34) Total Bilirubin 1.4 mg/dL (0.2-1.0) H Urinalysis Test 01/17/25 10:36 Urine Color Yellow (Yellow) Urine Clarity Clear (Clear) Urine pH 6.0 (5.0-9.0) Urine Specific [place] 1.024 (1.001-1.035) Urine Protein Trace (Negative) H Urine Ketones Negative (Negative) Urine Blood Negative /uL (Negative) Urine Nitrite Negative (Negative) Urine Bilirubin Negative (Negative) Urine Urobilinogen Normal mg/dL (Negative) Urine Leukocyte Esterase Trace /uL (Negative) Urine RBC 2 /hpf (0 - 3) Urine Microscopic WBC 1 /HPF (0-3) Urine Squamous Epithelial Cells None seen /hpf (<5) Urine Bacteria None seen /hpf (None Seen) Urine Mucus Few (None Seen) Urine Glucose Normal mg/dL (Normal) Labs and/or images reviewed: Labs reviewed by me, Image(s) reviewed by me Assessment/Plan Assessment/Plan Acute DVT right upper extremity: Heparin per protocol, cardiology consult for Dr. Peñaloza Acute diverticulitis with possible abscess: Zosyn, surgical consult for Dr. Pb Sarmiento GI consult for Dr. Eldon Sarmiento Radiology consult for possible drainage History of Recent diverticulitis Acute dehydration: IV fluids Plan discussed with: Patient Date of Service: Jan 18, 2025 Billing Provider: GINO SULLIVAN MD Common Visit Codes: [id number] INP/OBS CARE(HIGH) GINO SULLIVAN MD Jan 18, 2025 13:28
[2025-01-18] MEDS: IOHEXOL 300 MG/ML 100ML BOTTLE IJ ONE (13:53)
[2025-01-18] MEDS ORDERED: CLINIMIX PER PHARMACY 0 ML IV SCH (14:30)
--- NOTE | 2025-01-18 14:30 | DVHINCON2 ---
GI Consult Consult Note GI consult note Date of Consultation: 12/2024 Chief Complaint: Diverticulitis Referring Physician: Dr. Letha Sullivan H&P: 34-year-old male with past medical history of diverticulitis, presented to ER with complains of arm swelling and pain patient has a PICC line Patient has had multiple hospitalization due to diverticulitis in the past. Recently discharged three weeks ago, and has been followed up with Dr. Pb Sarmiento where patient claims to have outpatient CT scans which showed 50% improvement of diverticulitis No abdominal pain. No nausea vomiting. No melena or red blood in stool. Patient admits to having fevers and chills starting yesterday Past Medical History: Diverticulitis Past Surgical History: PICC line Social History: NO smoking, drinking ETOH and use of illegal drugs. Family History: Noncontributory Review of Systems: Constitutional: no fever, chill, weight loss HEENT: no eye pain, no hearing loss, no oral lesion, no scleral icterus Heart: no chest pain, no chest pressure Lung: no cough, no dyspnea with exertion Abdomen: see HPI Physical exam: General: NAD, AAOX3 Chest: lung iyer clear to auscultation Heart: RRR, no murmur Abdomen: non-distended, no tenderness to palpation, +BS Labs: Labs Test 01/18/25 07:49 01/18/25 06:22 01/17/25 10:48 01/17/25 10:36 Range/Units Sodium Level 140 136-145 mmol/L Potassium Level 3.7 3.5-5.1 mmol/L Chloride Level 105 98-107 mmol/L Carbon Dioxide Level 25 20-31 mmol/L Anion Gap 10 5-15 Blood Urea Nitrogen 9 9-23 mg/dL Creatinine 0.69 L 0.700-1.30 mg/dL Glomerular Filtration Rate Calc 125 >90 mL/min BUN/Creatinine Ratio 13.0 10.0-20.0 Serum Glucose 95 74-106 mg/dL Calcium Level 10.5 H 8.7-10.4 mg/dL Total Bilirubin 1.4 H 0.2-1.0 mg/dL Aspartate Amino Transferase (AST) 18 <34 U/L Alanine Aminotransferase (ALT) 17 7-40 U/L Alkaline Phosphatase 81 46-116 U/L Total Protein 8.4 H 5.7-8.2 g/dL Albumin 5.1 H 3.2-4.8 g/dL White Blood Count 9.1 # 4.4-10.8 10^3/uL Red Blood Count 4.38 L 4.5-5.90 10^6/uL Hemoglobin 11.6 #L 13.5-17.5 g/dL Hematocrit 35.7 #L 41.0-53.0 % Mean Corpuscular Volume 81.4 80.0-100.0 fL Mean Corpuscular Hemoglobin 26.5 L 28.0-32.0 pg Mean Corpuscular Hemoglobin Concent 32.6 32.0-36.0 g/dL Red Cell Distribution Width 16.7 H 11.8-14.3 % Platelet Count 177 140-450 10^3/uL Mean Platelet Volume 9.1 6.9-10.8 fL Neutrophils (%) (Auto) 62.2 37.0-80.0 % Lymphocytes (%) (Auto) 25.9 10.0-50.0 % Monocytes (%) (Auto) 8.7 0.0-12.0 % Eosinophils (%) (Auto) 2.6 0.0-7.0 % Basophils (%) (Auto) 0.6 0.0-2.0 % Neutrophils # (Auto) 5.7 1.6-8.6 10 ^3/uL Lymphocytes # (Auto) 2.4 0.4-5.4 10 ^3/uL Monocytes # (Auto) 0.8 0-1.3 10 ^3/uL Eosinophils # (Auto) 0.2 0-0.8 10 ^3/uL Basophils # (Auto) 0.1 0-0.2 10 ^3/uL Nucleated Red Blood Cells 0.1 % Prothrombin Time 12.2 H 9.3-11.8 sec Prothrombin Time INR 1.17 H 0.9-1.15 Activated Partial Thromboplast Time 48.8 H 24.5-34.5 SEC Lactic Acid Level 0.9 0.4-2.0 mmol/L Urine Color Yellow Yellow Urine Clarity Clear Clear Urine pH 6.0 5.0-9.0 Urine Specific [place] 1.024 1.001-1.035 Urine Protein Trace H Negative Urine Ketones Negative Negative Urine Blood Negative Negative /uL Urine Nitrite Negative Negative Urine Bilirubin Negative Negative Urine Urobilinogen Normal Negative mg/dL Urine Leukocyte Esterase Trace Negative /uL Urine RBC 2 0 - 3 /hpf Urine Microscopic WBC 1 0-3 /HPF Urine Squamous Epithelial Cells None seen <5 /hpf Urine Bacteria None seen None Seen /hpf Urine Mucus Few None Seen Urine Glucose Normal Normal mg/dL Imaging: CT abdomen pelvis IMPRESSION: 1. Limited evaluation without intravenous contrast. Findings suggestive of acute diverticulitis with possible early abscess formation involving the bladder. Lymphadenopathy could be reactive. An underlying malignant lesion is not entirely excluded. Recommend follow-up CT of the pelvis with intravenous contrast. Clinical correlation and continued follow-up is recommended. Assessment: Acute diverticulitis with possible abscess History of recurrent diverticulitis DVT right upper extremity Plan: Discussed with Dr. Sarmiento Strict NPO IV antibiotics Surgical consult recommended Clinimix Discussed plan with patient and RN Thank you for this consult Date of Service: Jan 18, 2025 Billing Provider: SMITHA SULLIVAN Common Visit Codes: CONSULT ONLY Consultation Codes: [id number] CONSULT <60MIN SMITHA SULLIVAN Jan 18, 2025 14:30
--- NOTE | 2025-01-18 14:36 | DVHCONRES ---
Date Seen: Jan 18, 2025 Resident Creating Document: PARAG EASLEY RESIDENT Referring Physician Dr. Hollingsworth Reason for Consultation DVT right upper extremity History of Present Illness Patient is a 34-year-old male with past medical history of recurrent diverticulitis (2 episodes in the last 12 months), who comes in due to right upper extremity pain and swelling. According to the patient, previous hospital ization he was discharged home with a PICC line for TPN and IV antibiotics, per patient TPN IV antibiotics stopped 3 weeks ago in the meantime he has been working with his surgeon's office to schedule repeat CT scan so a decision regarding resumption or stopping of TPN and IV antibiotics could be made. However, 2 days ago patient started experiencing right arm discomfort and pain while this PICC line was still in place, patient also noted to have irritation, erythema, chills and fever which is what prompted this visit to the hospital, patient notes in the ER he had a fainting spell as well from the pain and fever. Right upper extremity Doppler showed positive thrombus in right axillary and basilic vein. Currently denies any shortness of breaths, chest pain, dizziness. Past Medical History recurrent diverticulitis (2 episodes in the last 12 months) Past Surgical History Denies Family History: Patient reports no known family medical history. Social History Smoking: Denies Alcohol: Occasionally Drugs: Denies Allergies: Coded Allergies: Vancomycin (Verified Allergy, Unknown, 01/18/25) Home Meds No Active Prescriptions or Reported Meds Current Medications Current Medications Medications (Trade) Dose Ordered Sig/Yared Route PRN Reason Start Time Stop Time Status Last Admin Vancomycin HCl 0 ml @ 0 mls/hr UD IV 01/17/25 16:00 01/18/25 04:46 DC Piperacillin Sod/ Tazobactam Sod 100 ml @ 25 mls/hr Q6HR IV 01/18/25 00:00 01/18/25 04:50 DC 01/18/25 04:40 Heparin Sodium/ Dextrose 250 ml @ 11 mls/hr [id number] IV 01/17/25 14:50 01/18/25 09:01 DC 01/17/25 22:02 Sodium Chloride 1,000 ml @ 120 mls/hr Q8H20M IV 01/17/25 16:00 01/18/25 04:40 Ondansetron HCl (Zofran) 4 mg Q4HP PRN IV NAUSEA / VOMITING 01/17/25 16:00 01/17/25 18:29 Morphine Sulfate 2 mg Q4HPRN PRN IV SEVERE PAIN (7-10 PAIN SCALE) 01/17/25 16:00 01/17/25 21:58 Nitroglycerin (Ntrostat Sublingual) 0.4 mg Q5MINP PRN SL FOR CHEST PAIN 01/17/25 16:00 Piperacillin Sod/ Tazobactam Sod 100 ml @ 25 mls/hr Q6HR@0500,1100,1700,2300 IV 01/18/25 05:00 01/18/25 10:53 Heparin Sodium/ Dextrose 250 ml @ 13 mls/hr [id number] IV 01/18/25 09:15 01/18/25 09:03 Amino Acids 0 ml @ 0 mls/hr PER PHARMACY IV 01/18/25 14:30 UNV Review of Systems Patient seen and examined at bedside. Patient is alert and oriented to time, place person and responding to all questions. General: Fatigue, chills Eyes: No Pain, No Vision change, No Conjunctivae inflammation, No Eyelid i nflammation, No Other, No Redness ENT: No Ear pain, No Ear discharge, No Nose pain, No Nose discharge, No Nose congestion, No Mouth pain, No Mouth swelling, No Throat pain, No Throat swelling, No Other Cardiovascular: No Chest Pain, No Palpitations, No Orthopnea, No Paroxysmal No Dyspnea, No Edema, No Lt Headedness, No Other Respiratory: No Cough, No Dry, No Shortness of breath, No SOB with exertion, No Wheezing, No Hemoptysis, No Pleuritic Pain, No Sputum, No Other Gastrointestinal: No Nausea, No Vomiting, No Abdominal Pain, No Diarrhea, No Constipation, No Melena, No Hematochezia, No Other Genitourinary: No Dysuria, No Frequency, No Incontinence, No Hematuria, No Retention, No Other Musculoskeletal: No other, No neck pain, No shoulder pain, No arm pain, No back pain, No hand pain, No leg pain, No foot pain Skin: No Rash, No Lesions, No Jaundice, No Bruising, No Other. Right upper extremity swelling, some erythema Vital Signs Vital Signs Date Time Temp Pulse Resp B/P (MAP) Pulse Ox O2 Delivery O2 Flow Rate FiO2 01/18/25 08:00 Room Air* 0 21 01/18/25 01:00 98.5 65 17 99/60 (73 96 98.5 Physical Exam General Appearance: Cooperative. Well developed. Well nourished. NAD Head Exam: Normal inspection Neck Exam: Normal inspection. Non-tender. Normal alignment Pulmonary/Respiratory: Chest non-tender. Clear bilateral breath sounds, no crackles, no wheezing. Cardiovascular/Chest: Regular rate and rhythm. No murmurs. No JVD. Peripheral Pulses: 2+ Radial (R). 2+ Radial (L). 2+ Pedal (R). 2+ Pedal (L) Abdominal Exam: Normal bowel sounds. Soft. normal abdomen, no visible veins, minimal tenderness to deep palpation No hepatospenomegaly. No masses Upper extremities: Swelling and tenderness noted in the right upper extremity most pronounced in the axillary area Ankle Exam: Negative ankle edema Neuro/Mental Status: A&O x4. Coherent. Thoughts/Psych: Normal thought pattern. Appropriate mood and affect. Good judgement and insight Skin Exam: Normal inspection. Normal color. Warm. Dry Labs/Diagnostic Data Labs Test 01/18/25 07:49 01/18/25 06:22 01/17/25 10:48 01/17/25 10:36 Range/Units Sodium Level 140 136-145 mmol/L Potassium Level 3.7 3.5-5.1 mmol/L Chloride Level 105 98-107 mmol/L Carbon Dioxide Level 25 20-31 mmol/L Anion Gap 10 5-15 Blood Urea Nitrogen 9 9-23 mg/dL Creatinine 0.69 L 0.700-1.30 mg/dL Glomerular Filtration Rate Calc 125 >90 mL/min BUN/Creatinine Ratio 13.0 10.0-20.0 Serum Glucose 95 74-106 mg/dL Calcium Level 10.5 H 8.7-10.4 mg/dL Total Bilirubin 1.4 H 0.2-1.0 mg/dL Aspartate Amino Transferase (AST) 18 <34 U/L Alanine Aminotransferase (ALT) 17 7-40 U/L Alkaline Phosphatase 81 46-116 U/L Total Protein 8.4 H 5.7-8.2 g/dL Albumin 5.1 H 3.2-4.8 g/dL White Blood Count 9.1 # 4.4-10.8 10^3/uL Red Blood Count 4.38 L 4.5-5.90 10^6/uL Hemoglobin 11.6 #L 13.5-17.5 g/dL Hematocrit 35.7 #L 41.0-53.0 % Mean Corpuscular Volume 81.4 80.0-100.0 fL Mean Corpuscular Hemoglobin 26.5 L 28.0-32.0 pg Mean Corpuscular Hemoglobin Concent 32.6 32.0-36.0 g/dL Red Cell Distribution Width 16.7 H 11.8-14.3 % Platelet Count 177 140-450 10^3/uL Mean Platelet Volume 9.1 6.9-10.8 fL Neutrophils (%) (Auto) 62.2 37.0-80.0 % Lymphocytes (%) (Auto) 25.9 10.0-50.0 % Monocytes (%) (Auto) 8.7 0.0-12.0 % Eosinophils (%) (Auto) 2.6 0.0-7.0 % Basophils (%) (Auto) 0.6 0.0-2.0 % Neutrophils # (Auto) 5.7 1.6-8.6 10 ^3/uL Lymphocytes # (Auto) 2.4 0.4-5.4 10 ^3/uL Monocytes # (Auto) 0.8 0-1.3 10 ^3/uL Eosinophils # (Auto) 0.2 0-0.8 10 ^3/uL Basophils # (Auto) 0.1 0-0.2 10 ^3/uL Nucleated Red Blood Cells 0.1 % Prothrombin Time 12.2 H 9.3-11.8 sec Prothrombin Time INR 1.17 H 0.9-1.15 Activated Partial Thromboplast Time 48.8 H 24.5-34.5 SEC Lactic Acid Level 0.9 0.4-2.0 mmol/L Urine Color Yellow Yellow Urine Clarity Clear Clear Urine pH 6.0 5.0-9.0 Urine Specific [place] 1.024 1.001-1.035 Urine Protein Trace H Negative Urine Ketones Negative Negative Urine Blood Negative Negative /uL Urine Nitrite Negative Negative Urine Bilirubin Negative Negative Urine Urobilinogen Normal Negative mg/dL Urine Leukocyte Esterase Trace Negative /uL Urine RBC 2 0 - 3 /hpf Urine Microscopic WBC 1 0-3 /HPF Urine Squamous Epithelial Cells None seen <5 /hpf Urine Bacteria None seen None Seen /hpf Urine Mucus Few None Seen Urine Glucose Normal Normal mg/dL Assessment Right upper extremity DVT involving the axillary vein History of recurrent diverticulitis Plan: Continue heparin drip per pharmacy Consider transitioning to p.o. anticoagulation in 24-48 hours Anticoagulation for 3 months on discharge (provoked DVT; until April 20, 2025) Echocardiogram to evaluate for RV strain Follow up with PCP on discharge Follow up in discharge clinic after discharge Rest of the plan as per the course of hospitalization Thank you so much for the opportunity to consult on your patient. Cardiology team will sign off. In case of any questions or concerns please feel free to reach out. Plan discussed with Dr. Holguin Plan discussed with: Patient, Other Visit Coding Cardiology RES Date of Service: Jan 18, 2025 Billing Provider: JAMARI HOLGUIN Sr., MD Cardiology Common Codes: [id number] INP/OBS CARE (High) PARAG EASLEY RESIDENT Jan 18, 2025 14:36
--- NOTE | 2025-01-18 14:43 | DVHINCON2 ---
Date of service: Jan 17, 2025 Family History: Patient reports no known family medical history. Allergies: Coded Allergies: Vancomycin (Verified Allergy, Unknown, 01/18/25) Home Meds No Active Prescriptions or Reported Meds Current Medications Current Medications Medications (Trade) Dose Ordered Sig/Yared Route PRN Reason Start Time Stop Time Status Last Admin Vancomycin HCl 0 ml @ 0 mls/hr UD IV 01/17/25 16:00 01/18/25 04:46 DC Piperacillin Sod/ Tazobactam Sod 100 ml @ 25 mls/hr Q6HR IV 01/18/25 00:00 01/18/25 04:50 DC 01/18/25 04:40 Heparin Sodium/ Dextrose 250 ml @ 11 mls/hr [id number] IV 01/17/25 14:50 01/18/25 09:01 DC 01/17/25 22:02 Sodium Chloride 1,000 ml @ 120 mls/hr Q8H20M IV 01/17/25 16:00 01/18/25 04:40 Ondansetron HCl (Zofran) 4 mg Q4HP PRN IV NAUSEA / VOMITING 01/17/25 16:00 01/17/25 18:29 Morphine Sulfate 2 mg Q4HPRN PRN IV SEVERE PAIN (7-10 PAIN SCALE) 01/17/25 16:00 01/17/25 21:58 Nitroglycerin (Ntrostat Sublingual) 0.4 mg Q5MINP PRN SL FOR CHEST PAIN 01/17/25 16:00 Piperacillin Sod/ Tazobactam Sod 100 ml @ 25 mls/hr Q6HR@0500,1100,1700,2300 IV 01/18/25 05:00 01/18/25 10:53 Heparin Sodium/ Dextrose 250 ml @ 13 mls/hr [id number] IV 01/18/25 09:15 01/18/25 09:03 Vital Signs Vital Signs Date Time Temp Pulse Resp B/P (MAP) Pulse Ox O2 Delivery O2 Flow Rate FiO2 01/18/25 08:00 Room Air* 0 21 01/18/25 01:00 98.5 65 17 99/60 (73) 96 98.5 Labs/Diagnostic Data Labs Test 01/18/25 07:49 01/18/25 06:22 01/17/25 10:48 01/17/25 10:36 Range/Units Sodium Level 140 136-145 mmol/L Potassium Level 3.7 3.5-5.1 mmol/L Chloride Level 105 98-107 mmol/L Carbon Dioxide Level 25 20-31 mmol/L Anion Gap 10 5-15 Blood Urea Nitrogen 9 9-23 mg/dL Creatinine 0.69 L 0.700-1.30 mg/dL Glomerular Filtration Rate Calc 125 >90 mL/min BUN/Creatinine Ratio 13.0 10.0-20.0 Serum Glucose 95 74-106 mg/dL Calcium Level 10.5 H 8.7-10.4 mg/dL Total Bilirubin 1.4 H 0.2-1.0 mg/dL Aspartate Amino Transferase (AST) 18 <34 U/L Alanine Aminotransferase (ALT) 17 7-40 U/L Alkaline Phosphatase 81 46-116 U/L Total Protein 8.4 H 5.7-8.2 g/dL Albumin 5.1 H 3.2-4.8 g/dL White Blood Count 9.1 # 4.4-10.8 10^3/uL Red Blood Count 4.38 L 4.5-5.90 10^6/uL Hemoglobin 11.6 #L 13.5-17.5 g/dL Hematocrit 35.7 #L 41.0-53.0 % Mean Corpuscular Volume 81.4 80.0-100.0 fL Mean Corpuscular Hemoglobin 26.5 L 28.0-32.0 pg Mean Corpuscular Hemoglobin Concent 32.6 32.0-36.0 g/dL Red Cell Distribution Width 16.7 H 11.8-14.3 % Platelet Count 177 140-450 10^3/uL Mean Platelet Volume 9.1 6.9-10.8 fL Neutrophils (%) (Auto) 62.2 37.0-80.0 % Lymphocytes (%) (Auto) 25.9 10.0-50.0 % Monocytes (%) (Auto) 8.7 0.0-12.0 % Eosinophils (%) (Auto) 2.6 0.0-7.0 % Basophils (%) (Auto) 0.6 0.0-2.0 % Neutrophils # (Auto) 5.7 1.6-8.6 10 ^3/uL Lymphocytes # (Auto) 2.4 0.4-5.4 10 ^3/uL Monocytes # (Auto) 0.8 0-1.3 10 ^3/uL Eosinophils # (Auto) 0.2 0-0.8 10 ^3/uL Basophils # (Auto) 0.1 0-0.2 10 ^3/uL Nucleated Red Blood Cells 0.1 % Prothrombin Time 12.2 H 9.3-11.8 sec Prothrombin Time INR 1.17 H 0.9-1.15 Activated Partial Thromboplast Time 48.8 H 24.5-34.5 SEC Lactic Acid Level 0.9 0.4-2.0 mmol/L Urine Color Yellow Yellow Urine Clarity Clear Clear Urine pH 6.0 5.0-9.0 Urine Specific [place] 1.024 1.001-1.035 Urine Protein Trace H Negative Urine Ketones Negative Negative Urine Blood Negative Negative /uL Urine Nitrite Negative Negative Urine Bilirubin Negative Negative Urine Urobilinogen Normal Negative mg/dL Urine Leukocyte Esterase Trace Negative /uL Urine RBC 2 0 - 3 /hpf Urine Microscopic WBC 1 0-3 /HPF Urine Squamous Epithelial Cells None seen <5 /hpf Urine Bacteria None seen None Seen /hpf Urine Mucus Few None Seen Urine Glucose Normal Normal mg/dL Assessment [id number] RESOLVING AC DIVERTICULITIS AFEBRILE VSS ABD SOFT NON TENDER CT SCAN POSSIBLE INFLAMED TISSUE OF SIGMOID COLON INVOLVING URINARY BLADDER NO URINARY SYMPTOMS REPEAT CT SCAN WITH IV CONTRAST PENDING R ARM DVT SEC TO PICK LINE PLACEMENT FOR HOME TPN TPN STOPPED ON ANTICOAGULATION HIGH RISK FOR SURGERY Plan discussed with: Patient SANDRA WHITT MD Jan 18, 2025 14:43
--- NOTE | 2025-01-18 14:44 | DVH ---
Exam: CT CT AB PEL WITH IV CON ONLY History: RULE OUT ABSCESS Comparison Study: CT CT AB PELV W WO CON-ORAL IV on DOS: 09/30/24, CT CT AB PEL WITH IV CON ONLY on D OS: 09/26/24, CT CT AB PEL WITH IV CON ONLY on DOS: 05/13/23 TECHNIQUE: Multidetector CT of the abdomen and pelvis with IV contrast. Axial, coronal and sagittal m ultiplanar reformats were obtained from the axial data set by the technologist. Radiation Dose Information: CT Dose: CTDI volume is 7.25 mGy. Dose-length product is 364.11 mGy*cm FINDINGS: The lung bases are clear. Partially visualized heart is unremarkable. Mild hepatomegaly. Otherwise, liver, spleen, gallbladder, pancreas and adrenal glands are unremarkab le. Kidneys and Ureters are unremarkable. There is urachal diverticulum with Mild wall thickening. Prost ate is unremarkable. Mild gastric wall thickening which may be from inadequate distention. The small bowel loops unremark able. Appendix is unremarkable. Descending colon and Sigmoid diverticulosis with wall thickening of t he sigmoid and perisigmoid fat stranding . Single punctate focus of air within an area of phlegmonou s changes of the left anterior pelvis. Small to moderate amount of fecal material within the colon. No evidence of intraperitoneal free fluid. No evidence of aortic aneurysm or dissection. No significant lymphadenopathy. The soft tissues unremarkable. Destructive osseous lesions noted. Sclerotic focus of the left acetabu lar roof which may represent a bone island with a blastic lesion not excluded. No destructive osseou s lesions are noted. IMPRESSION: Descending colon and Sigmoid diverticulosis with sigmoid diverticulitis. Single punctate focus of air which is decreased in size from prior imaging over the left anterior pelvis with phlegmonous changes which may represent minimal contained perforation/early abscess formation. Urachal diverticulum with mild wall thickening and adjacent fat stranding which may be from the adjac ent diverticulitis. Cystitis/ neoplasm can not be excluded.
--- NOTE | 2025-01-18 14:45 | DVHPN2 ---
Progress Note Date Seen: Jan 18, 2025 Medical Necessity Reason Pt with a Central, PICC or Fol: No Objective vital signs Vital Sign Date Time Temp Pulse Resp B/P (MAP) Pulse Ox O2 Delivery O2 Flow Rate FiO2 01/18/25 08:00 Room Air* 0 21 01/18/25 01:00 98.5 65 17 99/60 (73) 96 98.5 Total Intake and Output 01/17/25 01/17/25 01/18/25 15:00 23:00 07:00 Intake Total 0 ml Balance 0 ml medications Current Medications Medications Dose Ordered Sig/Yared Route Start Time Stop Time Status Last Admin Dose Admin Sodium Chloride 1,000 ml @ 120 mls/hr Q8H20M IV 01/17/25 16:00 01/18/25 04:40 Ondansetron HCl 4 mg Q4HP PRN IV 01/17/25 16:00 01/17/25 18:29 Morphine Sulfate 2 mg Q4HPRN PRN IV 01/17/25 16:00 01/17/25 21:58 Nitroglycerin 0.4 mg Q5MINP PRN SL 01/17/25 16:00 Piperacillin Sod/ Tazobactam Sod 100 ml @ 25 mls/hr Q6HR@0500,1100,1700,2300 IV 01/18/25 05:00 01/18/25 10:53 Heparin Sodium/ Dextrose 250 ml @ 13 mls/hr [id number] IV 01/18/25 09:15 01/18/25 09:03 laboratory and microbiology Laboratory Tests 01/18/25 07:49 01/18/25 06:22 Test 01/18/25 07:49 Range/Units Serum Glucose 95 74-106 mg/dL Problem List/Assessment/Plan Problem List/Assessment/Plan AFEBRILE VSS ABD SOFT NON TENDER R ARM PAIN LESS PICK LINE REMOVED ON ANTICOAGULATION CONTINUE CLOSE OBSERVATION NPO REPEAT CT SCAN ABD PELVIS WITH IV CONTRAST PENDING Plan discussed with: Patient SANDRA WHITT MD Jan 18, 2025 14:45
--- NOTE | 2025-01-18 15:55 | DVHINCON2 ---
DATE OF CONSULTATION: 01/17/2025 HISTORY OF PRESENT ILLNESS: He was seen in by me in the Emergency Room. He is 34 years old. He has a history of diverticulitis, inflammatory mass found close to his urinary bladder in the last CAT scan. Currently, he is not complaining of any abdominal pain. He was on home TPN, but that had been stopped because of his improved diverticulitis, but he was not able to do a followup on his midline placement that was on his right arm that caused him issues with clot formation and he was admitted for anticoagulation. The midline was taken out. Currently, there is no abdominal pain. No nausea or vomiting. No constipation or diarrhea. No hematuria or melena. No bleeding per rectum. PAST MEDICAL HISTORY: As above. PAST SURGICAL HISTORY: As before. PHYSICAL EXAMINATION: VITAL SIGNS: Afebrile. Stable signs. HEENT: There is no evidence of pallor, cyanosis or jaundice. NECK: Supple and nontender with no thyromegaly or lymphadenopathy. CHEST AND LUNGS: Clear. HEART: Within normal limits. ABDOMEN: Soft, nontender. No rebound. EXTREMITIES: Unremarkable. NEUROLOGICALLY: Intact. CLINICAL IMPRESSION: Resolving diverticulitis. He does have an inflammatory response next to the urinary bladder, but he does not have any urinary symptoms. No fever or chills and no burning on micturition. PLAN: At this point, he needs to be managed conservatively with the possibility of resolution and then the diet can be advanced. At this point, he also needs anticoagulation for his DVT and that would make him in a high-risk category for possible surgery, but that if indicated can be considered on an emergent basis based upon ongoing evaluation. MD MAISHA Kennedy/FRANCISCO JAVIER/CASTRO TID: [id number] RECEIPT: [id number] cc: Zeferino Hollingsworth MD
[2025-01-18 16:13] LABS: INR 1.09 (0.9-1.15); Partial Thromboplastin Time 51.3 SEC (24.5-34.5); Prothrombin Time 11.5 sec (9.3-11.8)
[2025-01-18 16:53] LABS: Magnesium 2.2 mg/dL (1.6-2.6)
[2025-01-18 16:55] LABS: Phosphorus 3.3 mg/dL (2.4-5.1)
[2025-01-18 17:07] VITALS: BP 111/78; PULSE 57; RESP 16; TEMP 97.6; O2SAT 98
[2025-01-18 21:00] VITALS: BP 119/73; PULSE 81; RESP 16; TEMP 98.8; O2SAT 100
[2025-01-18] MEDS: AMINO ACID INFUSION IN D10W 1,000 ML IV SCH (21:55)
[2025-01-18 23:21] LABS: INR 1.07 (0.9-1.15); Partial Thromboplastin Time 49.8 SEC (24.5-34.5); Prothrombin Time 11.3 sec (9.3-11.8)
[2025-01-18] MEDS: InsuLIN REG 1unit/0.01ml Soln (100units/ml) SC SCH (23:51)
[2025-01-18] MEDS: ACCU-CHEK COMFORT CURVE STRIP VI SCH (23:51)
[2025-01-19] MEDS ORDERED: DEXTROSE (50%) 50ML SYRG IV SCH
[2025-01-19 05:00] VITALS: BP 134/77; PULSE 82; RESP 17; TEMP 98.2; O2SAT 99
[2025-01-19 07:26] LABS: Potassium 3.4 mmol/L (3.5-5.1)
[2025-01-19 07:27] LABS: Calcium 10.1 mg/dL (8.7-10.4)
[2025-01-19 07:30] LABS: INR 1.09 (0.9-1.15); Partial Thromboplastin Time 60.4 SEC (24.5-34.5); Prothrombin Time 11.5 sec (9.3-11.8)
[2025-01-19 07:32] LABS: Albumin 4.7 g/dL (3.2-4.8); BUN/Creatinine Ratio 8.2 (10.0-20.0)
[2025-01-19 07:34] LABS: Phosphorus 3.2 mg/dL (2.4-5.1)
[2025-01-19 08:00] VITALS: PULSE 79; RESP 20
[2025-01-19 09:00] VITALS: BP 135/93; PULSE 79; RESP 20; TEMP 98.2; O2SAT 99
--- NOTE | 2025-01-19 09:08 | DVHPN2 ---
Reviewed: Care Plan, H&P, Labs, Medications, Previous Orders, Radiology Changes from previous H/P or p: No Changes Eyes: No Pain, No Vision change, No Conjunctivae inflammation, No Eyelid inflammation, No Other, No Redness ENT: No Ear pain, No Ear discharge, No Nose pain, No Nose discharge, No Nose congestion, No Mouth pain, No Mouth swelling, No Throat pain, No Throat swelling, No Other Cardiovascular: No Chest Pain, No Palpitations, No Orthopnea, No Paroxysmal Noc. Dyspnea, No Edema, No Lt Headedness, No Other Respiratory: No Cough, No Dry, No Shortness of breath, No SOB with excertion, No Wheezing, No Hemoptysis, No Pleuritic Pain, No Sputum, No Other Gastrointestinal: Abdominal Pain Genitourinary: No Dysuria, No Frequency, No Incontinence, No Hematuria, No Retention, No Other Musculoskeletal: arm pain Skin: No Rash, No Lesions, No Jaundice, No Bruising, No Other Objective Vitals Vital Signs Date Time Temp Pulse Resp B/P (MAP) Pulse Ox O2 Delivery O2 Flow Rate FiO2 01/19/25 05:00 98.2 82 17 134/77 (96) 99 98.2 01/18/25 20:00 Room Air* 0 21 Intake/Output Intake and Output 01/19/25 07:00 Intake Total 1180 ml Balance 1180 ml Intake Oral 0 ml IV Total 1180 ml # Voids 6 # Bowel Movements 2 Medications Current Medications Medications Dose Ordered Sig/Yared Route Start Time Stop Time Status Last Admin Dose Admin Sodium Chloride 1,000 ml @ 120 mls/hr Q8H20M IV 01/17/25 16:00 01/19/25 01:20 120 MLS/HR Ondansetron HCl 4 mg Q4HP PRN IV 01/17/25 16:00 01/17/25 18:29 4 MG Morphine Sulfate 2 mg Q4HPRN PRN IV 01/17/25 16:00 01/17/25 21:58 2 MG Nitroglycerin 0.4 mg Q5MINP PRN SL 01/17/25 16:00 Piperacillin Sod/ Tazobactam Sod 100 ml @ 25 mls/hr Q6HR@0500,1100,1700,2300 IV 01/18/25 05:00 01/19/25 06:10 25 MLS/HR Amino Acids 0 ml @ 0 mls/hr PER PHARMACY IV 01/18/25 14:30 Amino Acids/ Electrolytes/ Dextrose 1,000 ml @ 41 mls/hr DAILY@2200 IV 01/18/25 22:00 01/18/25 21:55 41 MLS/HR Diagnostic Test (Pha) 1 strip Q6HR 01/19/25 00:00 01/19/25 06:10 1 STRIP Insulin Human Regular FOLLOW SLIDING SCALE Q6HR SC 01/19/25 00:00 Dextrose 50 ml UD IV 01/19/25 00:00 Heparin Sodium/ Dextrose 250 ml @ 15 mls/hr [id number] IV 01/18/25 23:45 01/18/25 23:40 15 MLS/HR Laboratory Results Laboratory Tests 01/18/25 06:22 01/19/25 06:26 Chemistry Test 01/18/25 15:40 01/19/25 06:26 Magnesium Level 2.2 mg/dL (1.6-2.6) 2.0 mg/dL (1.6-2.6) Phosphorus Level 3.3 mg/dL (2.4-5.1) 3.2 mg/dL (2.4-5.1) Albumin 4.7 g/dL (3.2-4.8) Calcium Level 10.1 mg/dL (8.7-10.4) Coagulation Test 01/18/25 15:40 01/18/25 22:15 01/19/25 06:26 Prothrombin Time 11.5 sec (9.3-11.8) 11.3 sec (9.3-11.8) 11.5 sec (9.3-11.8) Prothrombin Time INR 1.09 (0.9-1.15) 1.07 (0.9-1.15) 1.09 (0.9-1.15) Activated Partial Thromboplast Time 51.3 SEC (24.5-34.5) H 49.8 SEC (24.5-34.5) H 60.4 SEC (24.5-34.5) H Urinalysis Test 01/17/25 10:36 Urine Color Yellow (Yellow) Urine Clarity Clear (Clear) Urine pH 6.0 (5.0-9.0) Urine Specific [place] 1.024 (1.001-1.035) Urine Protein Trace (Negative) H Urine Ketones Negative (Negative) Urine Blood Negative /uL (Negative) Urine Nitrite Negative (Negative) Urine Bilirubin Negative (Negative) Urine Urobilinogen Normal mg/dL (Negative) Urine Leukocyte Esterase Trace /uL (Negative) Urine RBC 2 /hpf (0 - 3) Urine Microscopic WBC 1 /HPF (0-3) Urine Squamous Epithelial Cells None seen /hpf (<5) Urine Bacteria None seen /hpf (None Seen) Urine Mucus Few (None Seen) Urine Glucose Normal mg/dL (Normal) Microbiology Microbiology Date/Time Source Procedure Growth Status 01/17/25 16:31 Blood Blood Culture - Preliminary NO GROWTH AFTER 24 HOURS OF INCUBATION. Resulted Labs and/or images reviewed: Labs reviewed by me, Image(s) reviewed by me Assessment/Plan Assessment/Plan Acute DVT right upper extremity: Heparin per protocol, cardiology consult for Dr. Peñaloza treated, advised to transition to oral anticoagulation in two days and to be continued for three months Acute diverticulitis CT abdomen pelvis with contrast shows no abscess Radiology advised no need for any drainage, continue Zosyn, surgical consult for Dr. Pb Sarmiento, advised no surgery, advised conservative management antibiotics and pain meds History of Recent diverticulitis Acute dehydration: IV fluids Plan discussed with: Patient My Orders Orders - GINO SULLIVAN MD Procedure Category Date Status Time * Gi Dvh [employer] CONS 01/18/25 Transmitted 13:28 * Surgical Consult CONS 01/18/25 Transmitted 13:36 * Cardiology Consult CONS 01/18/25 Transmitted 13:36 Ct Ab Pel With Iv Con CT 01/18/25 Resulted Only 13:47 Date of Service: Jan 19, 2025 Billing Provider: GINO SULLIVAN MD Common Visit Codes: [id number] INP/OBS CARE(HIGH) GINO SULLIVAN MD Jan 19, 2025 09:08
[2025-01-19 13:21] VITALS: BP 138/81; PULSE 93; RESP 20; TEMP 98; O2SAT 96
[2025-01-19 14:23] LABS: Basophils # (auto) 0 10 ^3/uL (0-0.2); Basophils % (auto) 0.4 % (0.0-2.0); Eosinophils # (auto) 0.2 10 ^3/uL (0-0.8); Hematocrit 41.5 % (41.0-53.0); Hemoglobin 13.7 g/dL (13.5-17.5); Lymphocytes # (auto) 1.4 10 ^3/uL (0.4-5.4); Lymphocytes % (auto) 12.8 % (10.0-50.0); Mean Corpuscular Hemoglobin 26.6 pg (28.0-32.0); Mean Corpuscular Volume 80.6 fL (80.0-100.0); Monocytes # (auto) 0.7 10 ^3/uL (0-1.3); Monocytes % (auto) 6.7 % (0.0-12.0); Neutrophils # (auto) 8.6 10 ^3/uL (1.6-8.6); Neutrophils % (auto) 78.1 % (37.0-80.0); Platelet Count (auto) 162 10^3/uL (140-450); Red Blood Cells 5.15 10^6/uL (4.5-5.90); Red Cell Distribution Width 16.6 % (11.8-14.3); White Blood Cell 11.1 10^3/uL (4.4-10.8)
[2025-01-19 14:34] LABS: INR 1.19 (0.9-1.15); Partial Thromboplastin Time 53.5 SEC (24.5-34.5); Prothrombin Time 12.4 sec (9.3-11.8)
[2025-01-19] MEDS ORDERED: POTASSIUM CHL 20MEQ/100ML 100 ML IV ONE (16:15)
[2025-01-19 17:18] VITALS: BP 149/85; PULSE 86; RESP 18; TEMP 97.9; O2SAT 99
[2025-01-19] MEDS: POTASSIUM CHL 10 Meq TABLET PO ONE (18:17)
--- NOTE | 2025-01-19 18:40 | DVHSR ---
APPROVED REPORT EXAM: Two-dimensional and M-mode echocardiogram with Doppler and color Doppler. Blood Pressure: 134/77 mmHg INDICATION Right upper extremity DVT Eval RV strain RISK FACTORS Height: 5'6", Weight: 137 DIMENSIONS LVDd4.5 (3.8-5.7cm)LA (2D)3.1 (1.9-4.0cm)Aortic Root3.3 (2.0-3.7cm) LVDs2.9 (2.5-4.0cm)LA (MM) (1.9-4.0cm)Aortic Cusp Exc2.1 (1.5-2.0cm) EF (%) 60.0 (55-70%)Rt. Atrium3.5 (1.9-4.0cm)Asc. Aorta cm IVSd0.9 (0.7-1.1cm)RV (D)3.5 (1.8-2.4cm) PWd0.8 (0.7-1.1cm) Mitral Valve MitralMitral Stenosis E wave0.74m/sMV Mean GR.mmHg A wave0.60m/sMV Peak GR.mmHg E/A ratio1.22D MVAcm2 DECEL [id number] 1/2 Timems Aortic Valve Aortic ValveAortic Stenosis V10.91m/Julia Mean GR.2mmHg V21.03m/Julia Peak GR.4mmHg LVOT Diameter2.2 (1.8-2.4cm)Doppler AVA3.36cm2 Pulmonic Valve V21.07m/s Conclusion NORMAL LV EJECTION FRACTION IS 65% NORMAL VALVES NORMAL RV FUNCTION NO EFFUSION
[2025-01-19 19:19] LABS: INR 1.15 (0.9-1.15); Partial Thromboplastin Time 51.5 SEC (24.5-34.5)
[2025-01-19 21:00] VITALS: BP 135/76; PULSE 81; RESP 18; TEMP 98.6; O2SAT 99
[2025-01-20 04:55] VITALS: BP 127/75; PULSE 85; RESP 16; TEMP 98.4; O2SAT 98
[2025-01-20 09:00] VITALS: BP 119/79; PULSE 83; RESP 17; TEMP 98.4; O2SAT 99
--- NOTE | 2025-01-20 10:28 | DVHPN2 ---
Reviewed: Care Plan, H&P, Labs, Medications, Previous Orders, Radiology Changes from previous H/P or p: No Changes Eyes: No Pain, No Vision change, No Conjunctivae inflammation, No Eyelid inflammation, No Other, No Redness ENT: No Ear pain, No Ear discharge, No Nose pain, No Nose discharge, No Nose congestion, No Mouth pain, No Mouth swelling, No Throat pain, No Throat swelling, No Other Cardiovascular: No Chest Pain, No Palpitations, No Orthopnea, No Paroxysmal Noc. Dyspnea, No Edema, No Lt Headedness, No Other Respiratory: No Cough, No Dry, No Shortness of breath, No SOB with excertion, No Wheezing, No Hemoptysis, No Pleuritic Pain, No Sputum, No Other Gastrointestinal: Abdominal Pain Genitourinary: No Dysuria, No Frequency, No Incontinence, No Hematuria, No Retention, No Other Musculoskeletal: arm pain Skin: No Rash, No Lesions, No Jaundice, No Bruising, No Other Objective Vitals Vital Signs Date Time Temp Pulse Resp B/P (MAP) Pulse Ox O2 Delivery O2 Flow Rate FiO2 01/20/25 04:55 98.4 85 16 127/75 (92) 98 98.4 01/19/25 19:57 Room Air* 0 21 Intake/Output Intake and Output 01/20/25 07:00 Intake Total 1750 ml Balance 1750 ml Intake Oral 550 ml IV Total 1200 ml # Voids 5 # Bowel Movements 1 Medications Current Medications Medications Dose Ordered Sig/Yared Route Start Time Stop Time Status Last Admin Dose Admin Sodium Chloride 1,000 ml @ 120 mls/hr Q8H20M IV 01/17/25 16:00 01/20/25 02:20 120 MLS/HR Ondansetron HCl 4 mg Q4HP PRN IV 01/17/25 16:00 01/17/25 18:29 4 MG Morphine Sulfate 2 mg Q4HPRN PRN IV 01/17/25 16:00 01/17/25 21:58 2 MG Nitroglycerin 0.4 mg Q5MINP PRN SL 01/17/25 16:00 Piperacillin Sod/ Tazobactam Sod 100 ml @ 25 mls/hr Q6HR@0500,1100,1700,2300 IV 01/18/25 05:00 01/20/25 06:00 25 MLS/HR Heparin Sodium/ Dextrose 250 ml @ 15 mls/hr [id number] IV 01/18/25 23:45 01/20/25 08:39 15 MLS/HR Laboratory Results Laboratory Tests 01/19/25 06:26 Coagulation Test 01/19/25 13:27 01/19/25 18:46 01/20/25 10:04 Prothrombin Time 12.4 sec (9.3-11.8) H 12.0 sec (9.3-11.8) H Pending Prothrombin Time INR 1.19 (0.9-1.15) H 1.15 (0.9-1.15) Pending Activated Partial Thromboplast Time 53.5 SEC (24.5-34.5) H 51.5 SEC (24.5-34.5) H Pending Urinalysis Test 01/17/25 10:36 Urine Color Yellow (Yellow) Urine Clarity Clear (Clear) Urine pH 6.0 (5.0-9.0) Urine Specific [place] 1.024 (1.001-1.035) Urine Protein Trace (Negative) H Urine Ketones Negative (Negative) Urine Blood Negative /uL (Negative) Urine Nitrite Negative (Negative) Urine Bilirubin Negative (Negative) Urine Urobilinogen Normal mg/dL (Negative) Urine Leukocyte Esterase Trace /uL (Negative) Urine RBC 2 /hpf (0 - 3) Urine Microscopic WBC 1 /HPF (0-3) Urine Squamous Epithelial Cells None seen /hpf (<5) Urine Bacteria None seen /hpf (None Seen) Urine Mucus Few (None Seen) Urine Glucose Normal mg/dL (Normal) Microbiology Microbiology Date/Time Source Procedure Growth Status 01/17/25 16:31 Blood Blood Culture - Preliminary NO GROWTH AFTER 48 HOURS OF INCUBATION. Resulted Labs and/or images reviewed: Labs reviewed by me, Image(s) reviewed by me Assessment/Plan Assessment/Plan Acute DVT right upper extremity: Heparin per protocol, cardiology consult for Dr. Peñaloza treated, advised to transition to oral anticoagulation in two days and to be continued for three months Acute diverticulitis CT abdomen pelvis with contrast shows no abscess Radiology advised no need for any drainage, continue Zosyn, surgical consult for Dr. Pb Sarmiento, advised no surgery, advised conservative management antibiotics and pain meds History of Recent diverticulitis Acute dehydration: IV fluids Continue current management Repeat CT abdomen pelvis with IV contrast ordered Patient is hesitant to have another PICC line Plan discussed with: Patient Date of Service: Jan 20, 2025 Billing Provider: GINO SULLIVAN MD Common Visit Codes: [id number] INP/OBS CARE(HIGH) GINO SULLIVAN MD Jan 20, 2025 10:28
[2025-01-20 10:44] LABS: INR 1.19 (0.9-1.15); Partial Thromboplastin Time 50.4 SEC (24.5-34.5); Prothrombin Time 12.4 sec (9.3-11.8)
[2025-01-20 10:47] LABS: Basophils # (auto) 0.1 10 ^3/uL (0-0.2); Basophils % (auto) 0.6 % (0.0-2.0); Eosinophils # (auto) 0.3 10 ^3/uL (0-0.8); Eosinophils % (auto) 2.9 % (0.0-7.0); Hematocrit 41.6 % (41.0-53.0); Lymphocytes # (auto) 1.3 10 ^3/uL (0.4-5.4); Lymphocytes % (auto) 13.5 % (10.0-50.0); Mean Corpuscular Hemoglobin 27.1 pg (28.0-32.0); Mean Corpuscular Hgb Conc. 33.7 g/dL (32.0-36.0); Mean Corpuscular Volume 80.4 fL (80.0-100.0); Monocytes # (auto) 0.7 10 ^3/uL (0-1.3); Monocytes % (auto) 7.4 % (0.0-12.0); Neutrophils # (auto) 7.4 10 ^3/uL (1.6-8.6); Neutrophils % (auto) 75.6 % (37.0-80.0); Platelet Count (auto) 204 10^3/uL (140-450); Red Blood Cells 5.17 10^6/uL (4.5-5.90); Red Cell Distribution Width 16.2 % (11.8-14.3); White Blood Cell 9.8 10^3/uL (4.4-10.8)
[2025-01-20 13:00] VITALS: BP 140/78; PULSE 84; RESP 16; TEMP 98.5; O2SAT 100
--- NOTE | 2025-01-20 14:27 | DVHPN2 ---
Progress Note - Dictate Date Seen: Jan 20, 2025 Medical Necessity Reason Pt with a Central, PICC or Fol: No Subjective Out of bed to chair Tolerating soft diet Complains of abdominal bloating White count is 9 K vital signs Vital Sign Date Time Temp Pulse Resp B/P (MAP) Pulse Ox O2 Delivery O2 Flow Rate FiO2 01/20/25 13:00 98.5 84 16 140/78 (98) 100 98.5 01/20/25 08:00 Room Air* 0 21 Total Intake and Output 01/19/25 01/19/25 01/20/25 15:00 23:00 07:00 Intake Total 100 ml 1350 ml 300 ml Balance 100 ml 1350 ml 300 ml medications Current Medications Medications Dose Ordered Sig/Yared Route Start Time Stop Time Status Last Admin Dose Admin Sodium Chloride 1,000 ml @ 120 mls/hr Q8H20M IV 01/17/25 16:00 01/20/25 11:12 120 MLS/HR Ondansetron HCl 4 mg Q4HP PRN IV 01/17/25 16:00 01/17/25 18:29 4 MG Morphine Sulfate 2 mg Q4HPRN PRN IV 01/17/25 16:00 01/17/25 21:58 2 MG Nitroglycerin 0.4 mg Q5MINP PRN SL 01/17/25 16:00 Piperacillin Sod/ Tazobactam Sod 100 ml @ 25 mls/hr Q6HR@0500,1100,1700,2300 IV 01/18/25 05:00 01/20/25 11:11 25 MLS/HR Heparin Sodium/ Dextrose 250 ml @ 15 mls/hr [id number] IV 01/18/25 23:45 01/20/25 08:39 15 MLS/HR objective General: NAD, AAOX3 Chest: lung iyer clear to auscultation Heart: RRR, no murmur Abdomen: non-distended, no tenderness to palpation, +BS laboratory and microbiology Laboratory Tests 01/20/25 10:04 01/19/25 06:26 Test 01/19/25 06:26 Range/Units Serum Glucose 107 H 74-106 mg/dL Repeat CT SCAN IMPRESSION: Descending colon and Sigmoid diverticulosis with sigmoid diverticulitis. Single punctate focus of air which is decreased in size from prior imaging over the left anterior pelvis with phlegmonous changes which may represent minimal contained perforation/early abscess formation. Urachal diverticulum with mild wall thickening and adjacent fat stranding which may be from the adjacent diverticulitis. Cystitis/ neoplasm can not be excluded. Problems(with codes): (1) Diverticulitis of large intestine with complication (2) Deep vein thrombosis, upper right extremity Prognosis Plan Patient has been advised to stay more on a pureed and a full liquid diet Surgical has consult has cleared patient for oral antibiotics Continue anticoagulant for the DVT Outpatient follow up with surgical consult Outpatient follow up with GI Services in 6-8 weeks to discuss elective colonoscopy Dietary Evaluation Review Comments: 1) Increase TPN rate to meet at least 75% of estimated needs 2) Advance to low-fiber diet when medically feasible 3) Follow-up with gastroenterology and cardiology 4) Continue to monitor I&O, labs, and skin integrity Expected Outcomes/Goals: 1) TPN to meet at least 75% of estimated needs 2) labs to improve 3) diet to advance 4) f/u in 2-3 days Plan discussed with: Patient, Other (Dr Pb Sarmiento) BLANCO SARMIENTO MD Jan 20, 2025 14:27
[2025-01-20 17:00] VITALS: BP 151/75; PULSE 84; RESP 17; TEMP 98.4; O2SAT 98
[2025-01-20 21:00] VITALS: BP 125/80; PULSE 76; RESP 19; TEMP 98.2; O2SAT 100
[2025-01-21 01:00] VITALS: BP 134/78; PULSE 85; RESP 18; TEMP 98; O2SAT 98
[2025-01-21 05:00] VITALS: BP 139/70; PULSE 76; RESP 18; TEMP 97.7; O2SAT 100
[2025-01-21 06:31] LABS: Basophils # (auto) 0.1 10 ^3/uL (0-0.2); Basophils % (auto) 0.7 % (0.0-2.0); Eosinophils # (auto) 0.4 10 ^3/uL (0-0.8); Eosinophils % (auto) 3.9 % (0.0-7.0); Hematocrit 42.2 % (41.0-53.0); Lymphocytes # (auto) 1.8 10 ^3/uL (0.4-5.4); Lymphocytes % (auto) 15.8 % (10.0-50.0); Mean Corpuscular Hemoglobin 26.5 pg (28.0-32.0); Mean Corpuscular Hgb Conc. 33.2 g/dL (32.0-36.0); Mean Corpuscular Volume 79.7 fL (80.0-100.0); Monocytes % (auto) 9.2 % (0.0-12.0); Neutrophils # (auto) 7.8 10 ^3/uL (1.6-8.6); Neutrophils % (auto) 70.4 % (37.0-80.0); Nucleated Red Blood Cells % 0.1 %; Platelet Count (auto) 240 10^3/uL (140-450); Red Blood Cells 5.29 10^6/uL (4.5-5.90); Red Cell Distribution Width 16.3 % (11.8-14.3); White Blood Cell 11.1 10^3/uL (4.4-10.8)
[2025-01-21 06:46] LABS: INR 1.18 (0.9-1.15); Partial Thromboplastin Time 55.7 SEC (24.5-34.5); Prothrombin Time 12.3 sec (9.3-11.8)
[2025-01-21] MEDS: IOHEXOL 300 MG/ML 100ML BOTTLE IJ ONE (07:30)
[2025-01-21 09:00] VITALS: BP 125/79; PULSE 78; RESP 16; TEMP 97.6; O2SAT 98
--- NOTE | 2025-01-21 11:18 | DVHPN2 ---
Reviewed: Care Plan, H&P, Labs, Medications, Previous Orders, Radiology Changes from previous H/P or p: No Changes Eyes: No Pain, No Vision change, No Conjunctivae inflammation, No Eyelid inflammation, No Other, No Redness ENT: No Ear pain, No Ear discharge, No Nose pain, No Nose discharge, No Nose congestion, No Mouth pain, No Mouth swelling, No Throat pain, No Throat swelling, No Other Cardiovascular: No Chest Pain, No Palpitations, No Orthopnea, No Paroxysmal Noc. Dyspnea, No Edema, No Lt Headedness, No Other Respiratory: No Cough, No Dry, No Shortness of breath, No SOB with excertion, No Wheezing, No Hemoptysis, No Pleuritic Pain, No Sputum, No Other Gastrointestinal: Abdominal Pain Genitourinary: No Dysuria, No Frequency, No Incontinence, No Hematuria, No Retention, No Other Musculoskeletal: arm pain Skin: No Rash, No Lesions, No Jaundice, No Bruising, No Other Objective Vitals Vital Signs Date Time Temp Pulse Resp B/P (MAP) Pulse Ox O2 Delivery O2 Flow Rate FiO2 01/21/25 09:00 97.6 78 16 125/79 (94) 98 97.6 01/20/25 19:55 Room Air* 0 21 Intake/Output Intake and Output 01/21/25 07:00 Intake Total 980 ml Balance 980 ml Intake Oral 980 ml # Voids 5 # Bowel Movements 2 Medications Current Medications Medications Dose Ordered Sig/Yared Route Start Time Stop Time Status Last Admin Dose Admin Sodium Chloride 1,000 ml @ 120 mls/hr Q8H20M IV 01/17/25 16:00 01/21/25 04:30 120 MLS/HR Ondansetron HCl 4 mg Q4HP PRN IV 01/17/25 16:00 01/17/25 18:29 4 MG Morphine Sulfate 2 mg Q4HPRN PRN IV 01/17/25 16:00 01/17/25 21:58 2 MG Nitroglycerin 0.4 mg Q5MINP PRN SL 01/17/25 16:00 Piperacillin Sod/ Tazobactam Sod 100 ml @ 25 mls/hr Q6HR@0500,1100,1700,2300 IV 01/18/25 05:00 01/21/25 06:13 25 MLS/HR Laboratory Results Laboratory Tests 01/19/25 06:26 01/21/25 06:00 Coagulation Test 01/21/25 06:00 Prothrombin Time 12.3 sec (9.3-11.8) H Prothrombin Time INR 1.18 (0.9-1.15) H Activated Partial Thromboplast Time 55.7 SEC (24.5-34.5) H Urinalysis Test 01/17/25 10:36 Urine Color Yellow (Yellow) Urine Clarity Clear (Clear) Urine pH 6.0 (5.0-9.0) Urine Specific [place] 1.024 (1.001-1.035) Urine Protein Trace (Negative) H Urine Ketones Negative (Negative) Urine Blood Negative /uL (Negative) Urine Nitrite Negative (Negative) Urine Bilirubin Negative (Negative) Urine Urobilinogen Normal mg/dL (Negative) Urine Leukocyte Esterase Trace /uL (Negative) Urine RBC 2 /hpf (0 - 3) Urine Microscopic WBC 1 /HPF (0-3) Urine Squamous Epithelial Cells None seen /hpf (<5) Urine Bacteria None seen /hpf (None Seen) Urine Mucus Few (None Seen) Urine Glucose Normal mg/dL (Normal) Microbiology Microbiology Date/Time Source Procedure Growth Status 01/17/25 16:31 Blood Blood Culture - Preliminary NO GROWTH AFTER 72 HOURS OF INCUBATION. Resulted Labs and/or images reviewed: Labs reviewed by me, Image(s) reviewed by me Assessment/Plan Assessment/Plan Acute DVT right upper extremity: Heparin discontinued, Eliquis started per protocol Acute diverticulitis CT abdomen pelvis with contrast shows no abscess Radiology advised no need for any drainage, continue Zosyn, surgical consult for Dr. Pb Sarmiento, advised no surgery, advised conservative management antibiotics and pain meds History of Recent diverticulitis Acute dehydration: IV fluids Continue current management Repeat CT abdomen pelvis with IV contrast ordered PICC line ordered for left upper arm Plan discussed with: Patient My Orders Orders - GINO SULLIVAN MD Procedure Category Date Status Time (Nf) Eliquis PHA 01/22/25 Verified 10:00 Date of Service: Jan 21, 2025 Billing Provider: GINO SULLIVAN MD Common Visit Codes: [id number] INP/OBS CARE(HIGH) GINO SULLIVAN MD Jan 21, 2025 11:18
[2025-01-21 13:00] VITALS: BP 133/91; PULSE 91; RESP 16; TEMP 98.5; O2SAT 98
--- NOTE | 2025-01-21 13:27 | DVH ---
Exam: CT CT AB PEL WITH IV CON ONLY History: For Resolution of diverticulitis Comparison Study: CT CT AB PEL WITH IV CON ONLY on DOS: 01/18/25, CT CT AB PELV W WO CON-ORAL IV on DOS: 09/30/24, CT CT AB PEL WITH IV CON ONLY on DOS: 09/26/24 TECHNIQUE: Multidetector CT of the abdomen abdomen and pelvis with IV contrast. Axial, coronal and sa gittal multiplanar reformats were obtained from the axial data set by the technologist. Radiation Dose Information: CT Dose: CTDI volume is 5.5 mGy. Dose-length product is 322.66 mGy*cm FINDINGS: Bibasilar atelectasis. Partially visualized heart is unremarkable. Mild hepatomegaly. Otherwise, liver, spleen, gallbladder, pancreas and adrenal glands are unremarkab le. Kidneys and ureters are unremarkable. Progressive wall thickening of the urinary bladder most promine nt superiorly over the urachal diverticulum with increased adjacent fat stranding . Decreased disten tion of the urinary bladder when compared to prior imaging may be contributory to the wall thickening . Prostate is unremarkable. Stomach is unremarkable. Small bowel loops unremarkable. Appendix is normal in size with the distal end extending into the fat stranding associated with the sigmoiditis. Descending colon and Sigmoid di verticulosis with slightly worsened perisigmoid fat stranding/ edema and interval development of 1.1 x 2 x 2 cm small abscess over the left anterior lower abdomen extending to the adjacent transverse ab dominis musculature with foci of air in between the transverse abdominis musculature and internal ob lique musculature. No evidence of intra peritoneal free fluid. No evidence of aortic aneurysm or dissection. No significant lymphadenopathy. The soft tissues are unremarkable. No destructive osseous lesions are noted. Sclerotic focus of the r ight femoral head and left acetabulum which may represent bone islands with blastic lesions not exclu ded. IMPRESSION: Redemonstration of sigmoid diverticulitis with slight interval worsening of the adjacent fat strandin g and interval development of 1.1 x 2 x 2 cm abscess of the left anterior pelvis. Progressive wall thickening of the urinary bladder with Partially be from inadequate distention. Cor relate with urinalysis for cystitis. Neoplasm of the urachal diverticulum can not be completely exclu ded.
--- NOTE | 2025-01-21 13:35 | DVHPN2 ---
Progress Note Date Seen: Jan 21, 2025 Medical Necessity Reason Pt with a Central, PICC or Fol: No Objective vital signs Vital Sign Date Time Temp Pulse Resp B/P (MAP) Pulse Ox O2 Delivery O2 Flow Rate FiO2 01/21/25 09:00 97.6 78 16 125/79 (94) 98 97.6 01/20/25 19:55 Room Air* 0 21 Total Intake and Output 01/20/25 01/20/25 01/21/25 15:00 23:00 07:00 Intake Total 240 ml 500 ml 240 ml Balance 240 ml 500 ml 240 ml medications Current Medications Medications Dose Ordered Sig/Yared Route Start Time Stop Time Status Last Admin Dose Admin Sodium Chloride 1,000 ml @ 120 mls/hr Q8H20M IV 01/17/25 16:00 01/21/25 11:40 120 MLS/HR Ondansetron HCl 4 mg Q4HP PRN IV 01/17/25 16:00 01/17/25 18:29 4 MG Morphine Sulfate 2 mg Q4HPRN PRN IV 01/17/25 16:00 01/17/25 21:58 2 MG Nitroglycerin 0.4 mg Q5MINP PRN SL 01/17/25 16:00 Piperacillin Sod/ Tazobactam Sod 100 ml @ 25 mls/hr Q6HR@0500,1100,1700,2300 IV 01/18/25 05:00 01/21/25 11:49 25 MLS/HR Apixaban 10 mg BID PO 01/21/25 22:00 01/27/25 21:59 laboratory and microbiology Laboratory Tests 01/21/25 06:00 01/19/25 06:26 Test 01/19/25 06:26 Range/Units Serum Glucose 107 H 74-106 mg/dL Microbiology Date/Time Source Procedure Growth Status 01/17/25 16:31 Blood Blood Culture - Preliminary NO GROWTH AFTER 72 HOURS OF INCUBATION. Resulted Problem List/Assessment/Plan Problem List/Assessment/Plan AFEBRILE VSS ABD SOFT NON TENDER R ARM PAIN LESS PICK LINE REMOVED ON ANTICOAGULATION CONTINUE CLOSE OBSERVATION CURTIS DIET CLEARED FOR DISCHARGE Plan discussed with: Patient Dietary Evaluation Review Comments: 1) Increase TPN rate to meet at least 75% of estimated needs 2) Advance to low-fiber diet when medically feasible 3) Follow-up with gastroenterology and cardiology 4) Continue to monitor I&O, labs, and skin integrity Expected Outcomes/Goals: 1) TPN to meet at least 75% of estimated needs 2) labs to improve 3) diet to advance 4) f/u in 2-3 days SANDRA WHITT MD Jan 21, 2025 13:35
[2025-01-21] MEDS: APIXABAN 5 MG TAB PO ONE (14:13)
--- NOTE | 2025-01-21 14:53 | DVHPN2 ---
Progress Note - Dictate Date Seen: Jan 21, 2025 Medical Necessity Reason Pt with a Central, PICC or Fol: No Subjective No new complaints Tolerating full liquid diet WBC up to 11 K Two bowel movements recorded vital signs Vital Sign Date Time Temp Pulse Resp B/P (MAP) Pulse Ox O2 Delivery O2 Flow Rate FiO2 01/21/25 13:00 98.5 91 16 133/91 (105) 98 98.5 01/21/25 08:00 Room Air* 0 21 Total Intake and Output 01/20/25 01/20/25 01/21/25 15:00 23:00 07:00 Intake Total 240 ml 500 ml 240 ml Balance 240 ml 500 ml 240 ml medications Current Medications Medications Dose Ordered Sig/Yared Route Start Time Stop Time Status Last Admin Dose Admin Sodium Chloride 1,000 ml @ 120 mls/hr Q8H20M IV 01/17/25 16:00 01/21/25 11:40 120 MLS/HR Ondansetron HCl 4 mg Q4HP PRN IV 01/17/25 16:00 01/17/25 18:29 4 MG Morphine Sulfate 2 mg Q4HPRN PRN IV 01/17/25 16:00 01/17/25 21:58 2 MG Nitroglycerin 0.4 mg Q5MINP PRN SL 01/17/25 16:00 Piperacillin Sod/ Tazobactam Sod 100 ml @ 25 mls/hr Q6HR@0500,1100,1700,2300 IV 01/18/25 05:00 01/21/25 11:49 25 MLS/HR Apixaban 10 mg BID PO 01/21/25 22:00 01/27/25 21:59 objective General: NAD, AAOX3 Chest: lung iyer clear to auscultation Heart: RRR, no murmur Abdomen: non-distended, no tenderness to palpation, +BS laboratory and microbiology Laboratory Tests 01/21/25 06:00 01/19/25 06:26 Test 01/19/25 06:26 Range/Units Serum Glucose 107 H 74-106 mg/dL Problems(with codes): (1) Diverticulitis of large intestine with complication (2) Deep vein thrombosis, upper right extremity (3) Acute diverticulitis (4) Intractable abdominal pain Prognosis Plan Advance to pureed diet Patient has been advised to stay on a pureed or soft diet or soups at home for a few more weeks Continue to monitor labs, physical therapy, ambulate patient Patient cleared for discharge from surgical point of view on oral antibiotic He will follow up in my office as an outpatient for elective colonoscopy Dietary Evaluation Review Comments: 1) Increase TPN rate to meet at least 75% of estimated needs 2) Advance to low-fiber diet when medically feasible 3) Follow-up with gastroenterology and cardiology 4) Continue to monitor I&O, labs, and skin integrity Expected Outcomes/Goals: 1) TPN to meet at least 75% of estimated needs 2) labs to improve 3) diet to advance 4) f/u in 2-3 days Plan discussed with: Patient BLANCO WHITT MD Jan 21, 2025 14:53
[2025-01-21 17:07] VITALS: BP 142/83; PULSE 87; RESP 16; TEMP 98.2; O2SAT 98
[2025-01-21 21:00] VITALS: BP 146/87; PULSE 95; RESP 19; TEMP 98.1; O2SAT 99
[2025-01-21] MEDS: APIXABAN 5 MG TAB PO SCH (21:04)
[2025-01-22 01:00] VITALS: BP 131/65; PULSE 79; RESP 18; TEMP 98.3; O2SAT 98
[2025-01-22 05:00] VITALS: BP 135/69; PULSE 80; RESP 16; TEMP 97.9; O2SAT 99
[2025-01-22 09:00] VITALS: BP 115/61; PULSE 86; RESP 16; TEMP 98.2; O2SAT 100
--- NOTE | 2025-01-22 09:25 | DVHPN2 ---
Progress Note Date Seen: Jan 22, 2025 Medical Necessity Reason Pt with a Central, PICC or Fol: No Objective vital signs Vital Sign Date Time Temp Pulse Resp B/P (MAP) Pulse Ox O2 Delivery O2 Flow Rate FiO2 01/22/25 05:00 97.9 80 16 135/69 (91) 99 97.9 01/21/25 20:00 Room Air* 0 21 Total Intake and Output 01/21/25 01/21/25 01/22/25 15:00 23:00 07:00 Intake Total 860 ml 480 ml Balance 860 ml 480 ml medications Current Medications Medications Dose Ordered Sig/Yared Route Start Time Stop Time Status Last Admin Dose Admin Sodium Chloride 1,000 ml @ 120 mls/hr Q8H20M IV 01/17/25 16:00 01/21/25 20:54 120 MLS/HR Ondansetron HCl 4 mg Q4HP PRN IV 01/17/25 16:00 01/17/25 18:29 4 MG Morphine Sulfate 2 mg Q4HPRN PRN IV 01/17/25 16:00 01/17/25 21:58 2 MG Nitroglycerin 0.4 mg Q5MINP PRN SL 01/17/25 16:00 Piperacillin Sod/ Tazobactam Sod 100 ml @ 25 mls/hr Q6HR@0500,1100,1700,2300 IV 01/18/25 05:00 01/22/25 05:10 25 MLS/HR Apixaban 10 mg BID PO 01/21/25 22:00 01/27/25 21:59 01/21/25 21:04 10 MG laboratory and microbiology Laboratory Tests 01/21/25 06:00 01/19/25 06:26 Test 01/19/25 06:26 Range/Units Serum Glucose 107 H 74-106 mg/dL Microbiology Date/Time Source Procedure Growth Status 01/17/25 16:31 Blood Blood Culture - Preliminary NO GROWTH AFTER 72 HOURS OF INCUBATION. Resulted Problem List/Assessment/Plan Problem List/Assessment/Plan AFEBRILE VSS ABD SOFT NON TENDER BM + NO URINARY SYMPTOMS R ARM PAIN LESS PICK LINE REMOVED ON ANTICOAGULATION CONTINUE CLOSE OBSERVATION CURTIS DIET CLEARED FOR DISCHARGE Plan discussed with: Patient Dietary Evaluation Review Comments: 1) Increase TPN rate to meet at least 75% of estimated needs 2) Advance to low-fiber diet when medically feasible 3) Follow-up with gastroenterology and cardiology 4) Continue to monitor I&O, labs, and skin integrity Expected Outcomes/Goals: 1) TPN to meet at least 75% of estimated needs 2) labs to improve 3) diet to advance 4) f/u in 2-3 days SANDRA WHITT MD Jan 22, 2025 09:25
[2025-01-22] MEDS ORDERED: METR-344 PO (11:05)
[2025-01-22] MEDS ORDERED: LEVO500T91 PO (11:05)
[2025-01-22] MEDS ORDERED: HYDR-4902 PO (11:05)
[2025-01-22] MEDS ORDERED: APIX5TAB PO (11:05)
--- NOTE | 2025-01-22 11:10 | DVHPN2 ---
Reviewed: Care Plan, H&P, Labs, Medications, Previous Orders, Radiology Changes from previous H/P or p: No Changes Eyes: No Pain, No Vision change, No Conjunctivae inflammation, No Eyelid inflammation, No Other, No Redness ENT: No Ear pain, No Ear discharge, No Nose pain, No Nose discharge, No Nose congestion, No Mouth pain, No Mouth swelling, No Throat pain, No Throat swelling, No Other Cardiovascular: No Chest Pain, No Palpitations, No Orthopnea, No Paroxysmal Noc. Dyspnea, No Edema, No Lt Headedness, No Other Respiratory: No Cough, No Dry, No Shortness of breath, No SOB with excertion, No Wheezing, No Hemoptysis, No Pleuritic Pain, No Sputum, No Other Gastrointestinal: Abdominal Pain Genitourinary: No Dysuria, No Frequency, No Incontinence, No Hematuria, No Retention, No Other Musculoskeletal: arm pain Skin: No Rash, No Lesions, No Jaundice, No Bruising, No Other Objective Vitals Vital Signs Date Time Temp Pulse Resp B/P (MAP) Pulse Ox O2 Delivery O2 Flow Rate FiO2 01/22/25 09:00 98.2 86 16 115/61 (79) 100 98.2 01/21/25 20:00 Room Air* 0 21 Intake/Output Intake and Output 01/22/25 07:00 Intake Total 1340 ml Balance 1340 ml Intake Oral 1340 ml # Voids 4 # Bowel Movements 1 Medications Current Medications Medications Dose Ordered Sig/Yared Route Start Time Stop Time Status Last Admin Dose Admin Sodium Chloride 1,000 ml @ 120 mls/hr Q8H20M IV 01/17/25 16:00 01/21/25 20:54 120 MLS/HR Ondansetron HCl 4 mg Q4HP PRN IV 01/17/25 16:00 01/17/25 18:29 4 MG Morphine Sulfate 2 mg Q4HPRN PRN IV 01/17/25 16:00 01/17/25 21:58 2 MG Nitroglycerin 0.4 mg Q5MINP PRN SL 01/17/25 16:00 Piperacillin Sod/ Tazobactam Sod 100 ml @ 25 mls/hr Q6HR@0500,1100,1700,2300 IV 01/18/25 05:00 01/22/25 05:10 25 MLS/HR Apixaban 10 mg BID PO 6/23/25 22:00 01/27/25 21:59 01/22/25 10:26 10 MG Laboratory Results Laboratory Tests 01/19/25 06:26 01/21/25 06:00 Urinalysis Test 01/17/25 10:36 Urine Color Yellow (Yellow) Urine Clarity Clear (Clear) Urine pH 6.0 (5.0-9.0) Urine Specific [place] 1.024 (1.001-1.035) Urine Protein Trace (Negative) H Urine Ketones Negative (Negative) Urine Blood Negative /uL (Negative) Urine Nitrite Negative (Negative) Urine Bilirubin Negative (Negative) Urine Urobilinogen Normal mg/dL (Negative) Urine Leukocyte Esterase Trace /uL (Negative) Urine RBC 2 /hpf (0 - 3) Urine Microscopic WBC 1 /HPF (0-3) Urine Squamous Epithelial Cells None seen /hpf (<5) Urine Bacteria None seen /hpf (None Seen) Urine Mucus Few (None Seen) Urine Glucose Normal mg/dL (Normal) Microbiology Microbiology Date/Time Source Procedure Growth Status 01/17/25 16:31 Blood Blood Culture - Preliminary NO GROWTH AFTER 72 HOURS OF INCUBATION. Resulted Labs and/or images reviewed: Labs reviewed by me, Image(s) reviewed by me Assessment/Plan Assessment/Plan Acute DVT right upper extremity at the site of PICC line: PICC line removed started on heparin transitioned to Eliquis Acute diverticulitis CT abdomen pelvis with contrast shows no abscess Radiology advised no need for any drainage, treated with Zosyn, surgical consult for Dr. Pb Sarmiento, advised no surgery, advised conservative management, p.o. antibiotics as an outpatient History of recent diverticulitis Acute dehydration: IV fluids Patient feels better afebrile stable vital signs and wants to go home minimal pain right upper extremity Plan discussed with: Patient My Orders Orders - GINO SULLIVAN MD Procedure Category Date Status Time * Picc Line Consult CONS 01/21/25 Transmitted 11:18 Apixaban (Eliquis) PHA 01/21/25 In Process 22:00 Date of Service: Jan 22, 2025 Billing Provider: GINO SULLIVAN MD Common Visit Codes: [id number] INP/OBS CARE(HIGH) GINO SULLIVAN MD Jan 22, 2025 11:10
--- NOTE | 2025-01-22 11:17 | DVHDS2 ---
Discharge Summary Date of Admission Jan 17, 2025 at 15:55 Date of Discharge: Jan 22, 2025 Admitting Diagnosis Pain and swelling right upper extremity Wounds: None Labs/Diagnostic Data: Laboratory Results Test 01/21/25 06:00 01/19/25 06:26 01/19/25 06:18 01/18/25 07:49 White Blood Count 11.1 10^3/uL (4.4-10.8) Red Blood Count 5.29 10^6/uL (4.5-5.90) Hemoglobin 14.0 g/dL (13.5-17.5) Hematocrit 42.2 % (41.0-53.0) Mean Corpuscular Volume 79.7 fL (80.0-100.0) Mean Corpuscular Hemoglobin 26.5 pg (28.0-32.0) Mean Corpuscular Hemoglobin Concent 33.2 g/dL (32.0-36.0) Red Cell Distribution Width 16.3 % (11.8-14.3) Platelet Count 240 10^3/uL (140-450) Mean Platelet Volume 8.7 fL (6.9-10.8) Neutrophils (%) (Auto) 70.4 % (37.0-80.0) Lymphocytes (%) (Auto) 15.8 % (10.0-50.0) Monocytes (%) (Auto) 9.2 % (0.0-12.0) Eosinophils (%) (Auto) 3.9 % (0.0-7.0) Basophils (%) (Auto) 0.7 % (0.0-2.0) Neutrophils # (Auto) 7.8 10 ^3/uL (1.6-8.6) Lymphocytes # (Auto) 1.8 10 ^3/uL (0.4-5.4) Monocytes # (Auto) 1.0 10 ^3/uL (0-1.3) Eosinophils # (Auto) 0.4 10 ^3/uL (0-0.8) Basophils # (Auto) 0.1 10 ^3/uL (0-0.2) Nucleated Red Blood Cells 0.1 % Prothrombin Time 12.3 sec (9.3-11.8) Prothrombin Time INR 1.18 (0.9-1.15) Activated Partial Thromboplast Time 55.7 SEC (24.5-34.5) Sodium Level 141 mmol/L (136-145) Potassium Level 3.4 mmol/L (3.5-5.1) Chloride Level 106 mmol/L (98-107) Carbon Dioxide Level 23 mmol/L (20-31) Anion Gap 12 (5-15) Blood Urea Nitrogen 5 mg/dL (9-23) Creatinine 0.61 mg/dL (0.700-1.30) Estimated GFR () 196 mL/min Estimated GFR (Non- 162 mL/min BUN/Creatinine Ratio 8.2 (10.0-20.0) Serum Glucose 107 mg/dL (74-106) Calcium Level 10.1 mg/dL (8.7-10.4) Phosphorus Level 3.2 mg/dL (2.4-5.1) Magnesium Level 2.0 mg/dL (1.6-2.6) Albumin 4.7 g/dL (3.2-4.8) POC Glucose 126 mg/dl (70-106) Glomerular Filtration Rate Calc 125 mL/min (>90) Total Bilirubin 1.4 mg/dL (0.2-1.0) Aspartate Amino Transferase (AST) 18 U/L (<34) Alanine Aminotransferase (ALT) 17 U/L (7-40) Alkaline Phosphatase 81 U/L (46-116) Total Protein 8.4 g/dL (5.7-8.2) Test 01/17/25 10:48 01/17/25 10:36 Lactic Acid Level 0.9 mmol/L (0.4-2.0) Urine Color Yellow (Yellow) Urine Clarity Clear (Clear) Urine pH 6.0 (5.0-9.0) Urine Specific [place] 1.024 (1.001-1.035) Urine Protein Trace (Negative) Urine Ketones Negative (Negative) Urine Blood Negative /uL (Negative) Urine Nitrite Negative (Negative) Urine Bilirubin Negative (Negative) Urine Urobilinogen Normal mg/dL (Negative) Urine Leukocyte Esterase Trace /uL (Negative) Urine RBC 2 /hpf (0 - 3) Urine Microscopic WBC 1 /HPF (0-3) Urine Squamous Epithelial Cells None seen /hpf (<5) Urine Bacteria None seen /hpf (None Seen) Urine Mucus Few (None Seen) Urine Glucose Normal mg/dL (Normal) Other Laboratory Tests 01/21/25 06:00 01/19/25 06:26 Brief Hx & Hospital Course: 34-year-old male discharged from this hospital on 10/05/2024 with IV antibiotics through PICC line right upper extremity for acute diverticulitis. Came back complaining of pain in the right upper extremity with swelling. Found to have DVT right upper extremity at the site of the PICC line which was removed. Placed on heparin transition to Eliquis. CT abdomen pelvis without contrast showed acute diverticulitis with possible abscess Radiology consult was obtained and felt there is no abscess acute surgical consult by Dr. Pb Sarmiento and GI consult by Dr. Eldon Sarmiento patient was placed NPO and started on Zosyn for the acute diverticulitis. Patient has significantly improved. At the time of discharge afebrile with a minimal pain in the right upper extremity tolerating regular diet and wants to go home. Surgeon Dr. Pb Sarmiento recommended p.o. antibiotics for diverticulitis. Discharged home on Levaquin Flagyl [place] and Eliquis. Patient was advised that he has to be on Eliquis at least for three months We will Follow up with surgeon Dr. Pb Sarmiento and GI Dr. Eldon Sarmiento. Consults/Reason for consult Interventional radiologist Surgery Dr Pb Sarmiento GI Dr Eldon Sarmiento Operations or Procedures Venous ultrasound right upper extremity CT abdomen pelvis without contrast Condition at Discharge: Fair Final Diagnosis/Problems List Acute DVT right upper extremity at the site of PICC line: PICC line removed started on heparin transitioned to Eliquis Acute diverticulitis CT abdomen pelvis with contrast shows no abscess Radiology advised no need for any drainage, treated with Zosyn, surgical consult for Dr. Pb Sarmiento, advised no surgery, advised conservative management, p.o. antibiotics as an outpatient History of recent diverticulitis Acute dehydration: IV fluids Discharge Disposition: Home Discharge Instruct/Medications Diet: Regular Activity: Light activity Follow Up/Referral: Use medications as prescribed Follow up with your primary Dr Follow up with surgeon Dr. Pb Sarmiento in two weeks Follow up with the GI Dr. Eldon Sarmiento in two weeks Medications: Levaquin Flagyl Eliquis [place] [facility] (Time taken for discharge summary 36 minutes) Discharge Statement: "Patient was advised to return to the ER or call 911 if any headaches, dizziness, shortness of breath, chest pain, abdominal pain, bleeding, fevers, or worsening of medical condition. Patient was counseled about treatment plan, medications, possible side effects, patientverbalized understanding. All questions were answered to the best of my ability. This discharge took greater then 30 minutes in planning, reviewing documentation, counseling the patient, and discussing with other team members." ASSESSMENT ASSESSMENT Hospital Course Improved Assessment Acute DVT right upper extremity at the site of PICC line: PICC line removed started on heparin transitioned to Eliquis Acute diverticulitis CT abdomen pelvis with contrast shows no abscess Radiology advised no need for any drainage, treated with Zosyn, surgical consult for Dr. Pb Sarmiento, advised no surgery, advised conservative management, p.o. antibiotics as an outpatient History of recent diverticulitis Acute dehydration: IV fluids Date of Service: Jan 22, 2025 Billing Provider: GINO SULLIVAN MD Common Visit Codes: 45593-RHR/OBS DISCH DAY >30min GINO SULLIVAN MD Jan 22, 2025 11:17
[2025-01-22 15:06] VITALS: BP 115/61; PULSE 86; RESP 16; TEMP 36.8; O2SAT 100
== END 2025-01-22 16:00 | disposition home or self-care (01) | DRG 206 ==
LOC: ER 10:04 → OVERFLOW 15:55 → EAST 01-18 03:54
PROVIDERS: ADMIT Family Medicine; ATTEND Family Medicine
DX: T82.868A Thrombosis due to vascular prosthetic devices, implants and grafts, initial encounter (principal); I82.611 Acute embolism and thrombosis of superficial veins of right upper extremity; L02.211 Cutaneous abscess of abdominal wall; E86.0 Dehydration; F12.10 Cannabis abuse, uncomplicated; K57.32 Diverticulitis of large intestine without perforation or abscess without bleeding
CPT/HCPCS: 36415; 74176; 74177; 76775; 80053; 80069; 81001; 82962; 83605; 83735; 84100; 85025; 85610; 85730; 87040; 93306; 93971; 96374; 96375; 99291; G0378; J2405; J2543